=== PATIENT | female | born 1935 | race Caucasian/White ===

== ENCOUNTER 2018-01-26 09:15 | Outpatient (RCR) | payer MEDICARE, MEDICAID, SELFPAY ==
[2018-01-05 10:18] VITALS: BP 167/85; PULSE 74; RESP 18; TEMP 35.5; BMI 42.0
--- NOTE | 2018-01-05 14:02 | PCM.WC.HP ---
(1) Bilateral edema of lower extremity Status: Acute Current Visit: No Code(s): R60.0 - Localized edema (2) Difficulty walking down slope Status: Acute Current Visit: No Code(s): R26.2 - Difficulty in walking, not elsewhere classified (3) Morbid obesity with BMI of 50.0-59.9, adult Status: Chronic Current Visit: No Code(s): E66.01 - Morbid (severe) obesity due to excess calories; Z68.43 - Body mass index (BMI) 50-59.9 , adult (4) Pain in both lower legs Status: Chronic Current Visit: No Code(s): M79.661 - Pain in right lower leg; M79.662 - Pain in left lower leg (5) Peripheral vascular occlusive disease Status: Chronic Current Visit: No Code(s): I73.9 - Peripheral vascular disease, unspecified (6) Ulcer of left lower leg Status: Acute Current Visit: Yes Code(s): L97.929 - Non-pressure chronic ulcer of unspecified part of left lower leg with unspecified severity History of Present Illness Date of Service: 01/05/18 Chief Complaint: Follow-up on nonhealing ulcers of the left lower leg with seepage History of Wound: 82-year-old white female is been here before for the same has extreme peripheral vascular occlusive disease and bilateral lower leg. Patient has been compliant and has been wearing her compression stockings but approximately mid-October with a small breakdown of skin. The daughter who is her customer service manager states that it just started pouring out of her pores and she literally was dripping all over the floor of the yellow and clear drainage. She has developed a lot of cellulitis since then. Patient has tried to go to her regular doctor but they just increased her Lasix. Past Medical History Past Medical History: Chronic Problems Peripheral vascular occlusive disease (Chronic) Pain in both lower legs (Chronic) Morbid obesity with BMI of 50.0-59.9, adult (Chronic) Pacemaker (Chronic) Surgical History: pacemaker implantation, - Allergies/Adverse Reactions: Allergies ceftriaxone [From Rocephin] Allergy (Verified 01/05/18 10:59) Unknown levofloxacin [From Levaquin] Allergy (Verified 01/05/18 10:59) Unknown rosuvastatin calcium [From Crestor] Adverse Reaction (Verified 01/05/18 10:59) Other muscle aches Home Medications: Ambulatory Orders Medication Instructions Recorded Beta-Glucan, (1-3) (1-4) [Beta 10 mg MC DAILY 03/17/14 Glucan] Catalex F 2 tab PO DAILY 03/17/14 Cataplex B 3 tab PO DAILY 03/17/14 Cod Liver Oil 500 ml PO DAILY 03/17/14 Furosemide 40 mg PO DAILY 03/17/14 Levothyroxine [Synthroid] 75 mcg PO DAILY 03/17/14 Rivaroxaban [Xarelto] 20 mg PO DAILY 03/17/14 Calcium Lactate 252 mg PO BID 08/26/16 Magnesium Oxide [Magnesium] 400 mg PO DAILY 08/26/16 Potassium Chloride [K-Dur] 20 meq PO DAILY 08/26/16 Ubidecarenone [Coq10] 100 mg PO DAILY 08/26/16 Vitamin E 1,000 unit PO DAILY 08/26/16 Metoprolol Succinate [Toprol Xl] mg PO DAILY 01/05/18 Quinapril HCl [Accupril] 20 mg PO DAILY 01/05/18 - Family History Maternal Heart Disease Paternal Heart Disease, Stroke Sibling Heart Disease, - - Kidney disease Smoking Status: Never smoker Review of Systems Constitutional: Denies: Chills, Fever Eyes: Denies: Blurred vision, Drainage, Pain HEENT: Denies: Difficulty Hearing, Difficulty Swallowing, Sore Throat, Visual Changes Cardiovascular: Denies: Chest Pain, Palpitations, Syncope Respiratory: Denies: Cough, Shortness of Breath Gastrointestinal: Denies: Abdominal Pain, Nausea, Vomiting Genitourinary: Denies: Dysuria, Frequency Musculoskeletal: Denies: Joint Pain, Muscle pain Skin: Denies: Jaundice, Rash Neurological: Denies: Balance problems, Change in Speech, Difficulty swallowing, Focal weakness Psychiatric: Denies: Anxiety, Depression Endocrine: Denies: Change in Body Habitus Hematologic/ Lymphatic: Denies: Adenopathy - Physical Exam Vital Signs Temp Pulse Resp BP 96 F L 74 18 167/85 H 01/05/18 10:18 01/05/18 10:18 01/05/18 10:18 01/05/18 10:18 General: Oriented x3, Cooperative, Well developed HEENT: Atraumatic, PERRLA Oral: Moist Mucosa Neck: Supple, No JVD Lungs: Clear to auscultation, Normal air movement Cardiovascular: Regular rate, Regular Rhythm Abdomen: Bowel Sounds Present, Soft, Non Tender, No Hepato-splenomegaly Extremities: No clubbing, Edema, - - Cellulitis and open ulcers superficial on left lower leg Skin: Ulcer/ Wound Wound Measurements and Assessment WC - Nurse 1 - General Ulcer Measurement Start: 01/05/18 10:16 Freq: Status: Active Protocol: Activity Type Activity Date Activity User E-Sign Co-Sign Detail Recorded Client Recorded Date Recorded By Document 01/05/18 10:18 [facility] [id number] 01/05/18 10:53 [facility] 01/05/18 10:18 Wound Center Nurse 1 [Ulcer Assessment] #11 L LAT LEG -Combined with other wound No -Current Size (cm) - Length 10.8 -Current Size (cm) - Width 10.5 -Current Size (cm) - Depth 0.1 -Total Square Cm 113.40 -Date of Last Picture (Recall this 01/05/18 field) -Photo Taken Yes -Epithelialization None Present -Tunneling No -Undermining/Tunneling No -Circular Undermining No -Classification - Thickness Full Thickness without Exposed Support Structure -Exudate Amt Large (67-100%) -Exudate Type Serous -Wound Margin Indistinct, Non -Visible -Granulation Amt None Present (0 %) -Slough/Fibrin Yes -Necrotic Tissue Type Adherent Slough -Structure Exposed None/Limited to Skin Breakdown -Texture (Alexandra-wound Skin Appearance) Assessed Localized Edema -Moisture (Alexandra-wound Skin Appearance Assessed ) Maceration -Color (Alexandra-wound Skin Appearance) Assessed Erythema Hemosiderin Staining -Temperature (Alexandra-wound Skin No Abnormality Appearance) (Pt Warm) -Tenderness on Palpation (Alexandra-wound No Skin Appearance) -Ulcer Cleansing Rinsed/ Irrigated with Saline -Foul Odor after Cleansing No -Anesthetic Used 4% Lidocaine Solution #10 L AZUL PROXIMAL -Combined with other wound No -Current Size (cm) - Length 3.4 -Current Size (cm) - Width 2.2 -Current Size (cm) - Depth 0.1 -Total Square Cm 7.48 -Date of Last Picture (Recall this 01/05/18 field) -Photo Taken Yes -Epithelialization None Present -Tunneling No -Undermining/Tunneling No -Circular Undermining No -Classification - Thickness Full Thickness without Exposed Support Structure -Exudate Amt Large (67-100%) -Exudate Type Serous -Wound Margin Indistinct, Non -Visible -Granulation Amt None Present (0 %) -Slough/Fibrin Yes -Necrosis Amt Large (67-100%) -Necrotic Tissue Type Adherent Slough -Structure Exposed None/Limited to Skin Breakdown -Texture (Alexandra-wound Skin Appearance) Assessed Localized Edema -Moisture (Alexandra-wound Skin Appearance Assessed ) Maceration -Color (Alexandra-wound Skin Appearance) Assessed Erythema Hemosiderin Staining -Temperature (Alexandra-wound Skin No Abnormality Appearance) (Pt Warm) -Tenderness on Palpation (Alexandra-wound No Skin Appearance) -Ulcer Cleansing Rinsed/ Irrigated with Saline -Foul Odor after Cleansing No -Anesthetic Used 4% Lidocaine Solution #9 R LAT KNEE -Combined with other wound No -Current Size (cm) - Length 0.7 -Current Size (cm) - Width 0.6 -Current Size (cm) - Depth 0.1 -Total Square Cm 0.42 -Date of Last Picture (Recall this 01/05/18 field) -Photo Taken Yes -Epithelialization None Present -Tunneling No -Undermining/Tunneling No -Circular Undermining No -Classification - Thickness Full Thickness without Exposed Support Structure -Exudate Amt Large (67-100%) -Exudate Type Serous -Wound Margin Indistinct, Non -Visible -Granulation Amt Small (1-33%) -Granulation Quality [place] -Slough/Fibrin Yes -Necrosis Amt Large (67-100%) -Necrotic Tissue Type Adherent Slough -Structure Exposed None/Limited to Skin Breakdown -Texture (Alexandra-wound Skin Appearance) Assessed Localized Edema -Moisture (Alexandra-wound Skin Appearance Assessed ) Maceration -Color (Alexandra-wound Skin Appearance) Assessed Erythema Hemosiderin Staining -Temperature (Alexandra-wound Skin No Abnormality Appearance) (Pt Warm) -Tenderness on Palpation (Alexandra-wound No Skin Appearance) -Ulcer Cleansing Rinsed/ Irrigated with Saline -Foul Odor after Cleansing No -Anesthetic Used 4% Lidocaine Solution #8 R LAT LE -Combined with other wound No -Current Size (cm) - Length 7.2 -Current Size (cm) - Width 5.5 -Current Size (cm) - Depth 0.1 -Total Square Cm 39.60 -Date of Last Picture (Recall this 01/05/18 field) -Photo Taken Yes -Epithelialization None Present -Tunneling No -Undermining/Tunneling No -Circular Undermining No -Classification - Thickness Full Thickness without Exposed Support Structure -Exudate Amt Large (67-100%) -Exudate Type Serous -Wound Margin Indistinct, Non -Visible -Granulation Amt Small (1-33%) -Granulation Quality Pale -Slough/Fibrin Yes -Necrosis Amt Large (67-100%) -Necrotic Tissue Type Adherent Slough -Structure Exposed None/Limited to Skin Breakdown -Texture (Alexandra-wound Skin Appearance) Assessed Localized Edema -Moisture (Alexandra-wound Skin Appearance Assessed ) Maceration Weeping -Color (Alexandra-wound Skin Appearance) Assessed Erythema Hemosiderin Staining -Temperature (Alexandra-wound Skin No Abnormality Appearance) (Pt Warm) -Tenderness on Palpation (Alexandra-wound No Skin Appearance) -Ulcer Cleansing Rinsed/ Irrigated with Saline -Foul Odor after Cleansing No -Anesthetic Used 4% Lidocaine Solution #7 R SEC TOE -Combined with other wound No -Current Size (cm) - Length 1.1 -Current Size (cm) - Width 1.5 -Current Size (cm) - Depth 0.1 -Total Square Cm 1.65 -Date of Last Picture (Recall this 01/05/18 field) -Photo Taken Yes -Epithelialization None Present -Tunneling No -Undermining/Tunneling No -Circular Undermining No -Classification - Thickness Full Thickness without Exposed Support Structure -Change in Wound Grade/Stage No Query Text:If change please identify the Stage/Grade in the comment (ie. S2 G3) -Exudate Amt Large (67-100%) -Exudate Type Serous -Wound Margin Indistinct, Non -Visible -Granulation Amt Medium (34-66%) -Granulation Quality Red -Slough/Fibrin Yes -Necrosis Amt Large (67-100%) -Necrotic Tissue Type Adherent Slough -Structure Exposed None/Limited to Skin Breakdown -Texture (Alexandra-wound Skin Appearance) Assessed Localized Edema -Moisture (Alexandra-wound Skin Appearance Assessed ) Maceration Weeping -Color (Alexandra-wound Skin Appearance) Assessed Erythema Hemosiderin Staining -Temperature (Alexandra-wound Skin Cool/Cold Appearance) -Tenderness on Palpation (Alexandra-wound No Skin Appearance) -Ulcer Cleansing Rinsed/ Irrigated with Saline -Foul Odor after Cleansing No -Anesthetic Used 4% Lidocaine Solution #6 R GRT TOE -Combined with other wound No -Current Size (cm) - Length 1.1 -Current Size (cm) - Width 1.3 -Current Size (cm) - Depth 0.1 -Total Square Cm 1.43 -Date of Last Picture (Recall this 01/05/18 field) -Photo Taken Yes -Epithelialization None Present -Tunneling No -Undermining/Tunneling No -Circular Undermining No -Classification - Thickness Full Thickness without Exposed Support Structure -Change in Wound Grade/Stage No Query Text:If change please identify the Stage/Grade in the comment (ie. S2 G3) -Exudate Amt Large (67-100%) -Exudate Type Serous -Wound Margin Indistinct, Non -Visible -Granulation Amt Medium (34-66%) -Granulation Quality Red -Slough/Fibrin Yes -Necrosis Amt Large (67-100%) -Necrotic Tissue Type Adherent Slough -Structure Exposed None/Limited to Skin Breakdown -Texture (Alexandra-wound Skin Appearance) Assessed Localized Edema -Moisture (Alexandra-wound Skin Appearance Assessed ) Maceration Weeping -Color (Alexandra-wound Skin Appearance) Assessed Erythema Hemosiderin Staining -Temperature (Alexandra-wound Skin Cool/Cold Appearance) -Tenderness on Palpation (Alexandra-wound Yes Skin Appearance) -Ulcer Cleansing Rinsed/ Irrigated with Saline -Foul Odor after Cleansing No -Anesthetic Used 4% Lidocaine Solution [Edema Assessment] -Lower Limb Edema Present Yes -Right Calf (cm) 50.1 -Right Ankle (cm) 28.4 -Left Calf (cm) 45.5 -Left Ankle (cm) 27.1 Musculoskeletal: No Tenderness to Palpation of Joints or Extremities Lymphatic: No Cervical, Supraclavicular, or Inguinal Adenopathy Neurological: Cranial nerves II-XII grossly intact, Neuro grossly intact Psych/Mental Status: Normal Affect, Appropriate Debridement Note Wound debrided: Left lower leg azul Type of Debridement: Excisional debridement Depth: Down to and including healthy tissue Instrument Used: 7mm curette Tissue Removed: Fibrin and some devitalized tissue Severity: Limited To Skin Breakdown Amount of bleeding with debridement: None Bleeding Controlled with: Compression and gauze - Additional Wound Wound debrided: Left lower leg lateral ulcers Type of Debridement: Excisional debridement Anesthesia Used: 5% Lidocaine Gel Depth: Down to and including healthy tissue Percentage of wound debrided: 100 Instrument Used: 7mm curette Tissue Removed: Devitalized tissue Severity: Limited To Skin Breakdown Amount of bleeding with debridement: Mild Bleeding Controlled with: Compression and gauze Patient tolerated procedure: Patient tolerated procedure well Assessment/Plan Active Problems Ulcer of left lower leg (Acute) Assessment: Cellulitis bilateral lower legs. Edema bilateral lower legs. Left lower leg ulcers and and lateral. Morbid obesity. Pacemaker. Renal insufficiency Plan: Wash the legs with Hibiclens. Apply Xeroform dressings to open areas. Cover with ABDs and Luisa. Continue to compress with Hernandez wraps. Follow-up one week
--- NOTE | 2018-01-12 09:42 | VDLE_ITS ---
Reason For Study: Edema RIGHT LEFT FV is compressible, spontaneous, phasic, FV is compressible, spontaneous, phasic, competent and demonstrates normal competent and demonstrates normal augmentation. augmentation. POP V is compressible, spontaneous, phasic, T/P Trunk is compressible. competent and demonstrates normal PTV is compressible. augmentation. LT PerV is compressible. T/P Trunk is compressible. Lt PopV is partially compressible with PTV is compressible. bright intraluminal echoes consistent with RT PerV is compressible. chronic DVT Rt SFJ not seen Lt SFJ not seen Rt GSV is Incompetent with reflux greater than 0.5 sec and a diameter of 0.62cm x Lt GSV is Incompetent with reflux greater 0.61cm in the thigh and 0.57cm x 0.62cm in than 0.5 sec with a diameter of 0.34cm x the calf 0.36cm in the thigh and 0.38cm x 0.43cm in the calf Rt SSV is Competent Lt SSV is Competent Incompetent Rt calf perf noted 12cm from medial malleolus. Lt PTV mislabeled as PopV. Procedure Exam performed in department. The study was technically limited. The study was technically difficult. Pt unable to lay flat, pt scanned upright; unable to visualize CFV, SFJ, and FV prox due to suboptimal pt positioning. A preliminary report was called and/or faxed to Wound Center. Interpretation Summary Deep veins of the right lower extremity are patent and compressible, though the right common femoral vein and the proximal right femoral vein were not visualized. The left common femoral vein and proximal left femoral vein were not visualized. Chronic venous changes were noted in the left popliteal vein, which is partially compressible and demonstrates bright intraluminal echogenicity. The remainder of the left lower extremity deep venous system is patent and compressible. Sapheno- femoral junctions were not visualized on either side. The greater saphenous veins appear bilaterally patent and compressible segmentally. Segmental valvular incompetence is noted within the greater saphenous veins bilaterally. Small saphenous veins are patent and competent bilaterally. 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 Ordering Physician: LEIGH LOPEZ Referring Physician: Leigh Lopez Performed By: Jo Wolfe RDCS, RVT
[2018-01-12 11:01] VITALS: BP 150/92; PULSE 87; RESP 22; TEMP 36.8; BMI 42.0
--- NOTE | 2018-01-12 12:55 | PN.PCM_ITS ---
(1) Bilateral edema of lower extremity Status: Acute Current Visit: No Code(s): R60.0 - Localized edema (2) Difficulty walking down slope Status: Acute Current Visit: No Code(s): R26.2 - Difficulty in walking, not elsewhere classified (3) Morbid obesity with BMI of 50.0-59.9, adult Status: Chronic Current Visit: No Code(s): E66.01 - Morbid (severe) obesity due to excess calories; Z68.43 - Body mass index (BMI) 50-59.9 , adult (4) Pain in both lower legs Status: Chronic Current Visit: No Code(s): M79.661 - Pain in right lower leg ; M79.662 - Pain in left lower leg (5) Peripheral vascular occlusive disease Status: Chronic Current Visit: No Code(s): I73.9 - Peripheral vascular disease, unspecified (6) Ulcer of left lower leg Status: Acute Current Visit: Yes Code(s): L97.929 - Non-pressure chronic ulcer of unspecified part of left lower leg with unspecified severity (7) Multiple superficial wounds with infection Status: Acute Current Visit: Yes Code(s): T07.XXXA - Unspecified multiple injuries, initial encounter; L08.9 - Local infection of the skin and subcutaneous tissue, unspecified (8) Staphylococcus aureus infection Status: Acute Current Visit: Yes Code(s): A49.01 - Methicillin susceptible Staphylococcus aureus infection, unspecified site (9) Peripheral vascular occlusive disease Status: Acute Current Visit: Yes Code(s): I73.9 - Peripheral vascular disease, unspecified Type of Wound Date of Service: 01/12/18 Chief Complaint: Follow-up on nonhealing ulcers of the left lower leg with seepage History of Wound: 82-year-old white female is been here before for the same has extreme peripheral vascular occlusive disease and bilateral lower leg. Patient has been compliant and has been wearing her compression stockings but approximately mid-October with a small breakdown of skin. The daughter who is her kindergartners helper states that it just started pouring out of her pores and she literally was dripping all over the floor of the yellow and clear drainage. She has developed a lot of cellulitis since then. Patient has tried to go to her regular doctor but they just increased her Lasix. Progress of Wound: Today the superficial blistering openings of the bilateral lower legs are much improved about half the size they were last week. Patient is being currently treated for a staph infection lower extremity and taking the antibiotic well. Continue with Xeroform dressings for healing. 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 Patient is already on Xarelto - Physical Exam Vital Signs Temp Pulse Resp BP 98.2 F 87 22 H 150/92 H 01/12/18 11:01 01/12/18 11:01 01/12/18 11:01 01/12/18 11:01 General: Oriented x3, Cooperative, Well developed HEENT: Atraumatic, PERRLA Oral: Moist Mucosa Neck: Supple, No JVD Lungs: Clear to auscultation, Normal air movement Cardiovascular: Regular rate, Regular Rhythm Abdomen: Bowel Sounds Present, Soft, Non Tender, No Hepato-splenomegaly Extremities: No clubbing, Edema Skin: Ulcer/ Wound - Clusters both legs superficial Wound Measurements and Assessment WC - Nurse 1 - General Ulcer Measurement Start: 01/05/18 10:16 Freq: Status: Active Protocol: Activity Type Activity Date Activity User E-Sign Co-Sign Detail Recorded Client Recorded Date Recorded By Document 01/12/18 11:01 [id number] 01/12/18 11:17 DL 01/12/18 11:01 Wound Center Nurse 1 [Ulcer Assessment] #11 L LAT LEG -Current Size (cm) - Length 6 -Current Size (cm) - Width 6 -Current Size (cm) - Depth 0.1 -Total Square Cm 36 -Photo Taken No -Exudate Amt Small (1-33%) -Exudate Type Serosanguineous -Wound Margin Indistinct, Non -Visible -Granulation Amt Large (67-100%) -Granulation Quality Red -Necrosis Amt None Present (0 %) -Necrotic Tissue Type Necrosis of Muscle -Structure Exposed N/A -Texture (Alexandra-wound Skin Appearance) Induration Localized Edema -Moisture (Alexandra-wound Skin Appearance No Abnormality ) -Color (Alexandra-wound Skin Appearance) Erythema Hemosiderin Staining -Temperature (Alexandra-wound Skin No Abnormality Appearance) (Pt Warm) -Tenderness on Palpation (Alexandra-wound No Skin Appearance) -Ulcer Cleansing Wound Cleanser -Foul Odor after Cleansing No -Anesthetic Used 4% Lidocaine Solution #10 L AZUL PROXIMAL -Current Size (cm) - Length 2.7 -Current Size (cm) - Width 1 -Current Size (cm) - Depth 0.1 -Total Square Cm 2.7 -Photo Taken No -Exudate Amt Small (1-33%) -Exudate Type Serosanguineous -Wound Margin Flat & Intact -Granulation Amt Large (67-100%) -Granulation Quality [place] Red -Necrosis Amt None Present (0 %) -Structure Exposed N/A -Texture (Alexandra-wound Skin Appearance) Induration Localized Edema Scarring -Color (Alexandra-wound Skin Appearance) Erythema Hemosiderin Staining Rubor -Temperature (Alexandra-wound Skin No Abnormality Appearance) (Pt Warm) -Tenderness on Palpation (Aleaxndra-wound No Skin Appearance) -Ulcer Cleansing Wound Cleanser -Foul Odor after Cleansing No -Anesthetic Used 4% Lidocaine Solution #9 R LAT KNEE -Current Size (cm) - Length 0.7 -Current Size (cm) - Width 0.6 -Current Size (cm) - Depth 0.1 -Total Square Cm 0.42 -Photo Taken No -Exudate Amt None Present (0 %) -Wound Margin Distinct, Outline Attached -Granulation Amt None Present (0 %) -Necrosis Amt Large (67-100%) -Necrotic Tissue Type Adherent Slough -Structure Exposed N/A -Texture (Alexandra-wound Skin Appearance) Callus Induration Localized Edema -Color (Alexandra-wound Skin Appearance) Erythema Hemosiderin Staining Rubor -Temperature (Alexandra-wound Skin No Abnormality Appearance) (Pt Warm) -Ulcer Cleansing Wound Cleanser -Foul Odor after Cleansing No -Anesthetic Used 4% Lidocaine Solution #8 R LAT LE -Current Size (cm) - Length 4 -Current Size (cm) - Width 5 -Current Size (cm) - Depth 0.1 -Total Square Cm 20 -Photo Taken No -Exudate Amt Small (1-33%) -Exudate Type Serosanguineous -Wound Margin Indistinct, Non -Visible -Granulation Amt Large (67-100%) -Granulation Quality Red -Necrosis Amt Small (1-33%) -Necrotic Tissue Type Adherent Slough -Structure Exposed N/A -Texture (Alexandra-wound Skin Appearance) Induration Localized Edema -Moisture (Alexandra-wound Skin Appearance No Abnormality ) -Color (Alexandra-wound Skin Appearance) Erythema Hemosiderin Staining -Tenderness on Palpation (Alexandra-wound No Skin Appearance) -Ulcer Cleansing Wound Cleanser -Foul Odor after Cleansing No -Anesthetic Used 4% Lidocaine Solution #7 R SEC TOE -Current Size (cm) - Length 1.1 -Current Size (cm) - Width 1.6 -Current Size (cm) - Depth 0.1 -Total Square Cm 1.76 -Photo Taken No -Exudate Amt Small (1-33%) -Exudate Type Serosanguineous -Wound Margin Distinct, Outline Attached -Granulation Amt Small (1-33%) -Granulation Quality [place] -Necrosis Amt Large (67-100%) -Necrotic Tissue Type Adherent Slough -Structure Exposed N/A -Texture (Alexandra-wound Skin Appearance) Localized Edema -Moisture (Alexandra-wound Skin Appearance Maceration ) -Color (Alexandra-wound Skin Appearance) Erythema Hemosiderin Staining -Temperature (Alexandra-wound Skin No Abnormality Appearance) (Pt Warm) -Tenderness on Palpation (Alexandra-wound No Skin Appearance) -Ulcer Cleansing Wound Cleanser -Foul Odor after Cleansing No -Anesthetic Used 4% Lidocaine Solution #6 R GRT TOE -Current Size (cm) - Length 1 -Current Size (cm) - Width 1 -Current Size (cm) - Depth 0.1 -Total Square Cm 1 -Photo Taken No -Exudate Amt Small (1-33%) -Exudate Type Serosanguineous -Wound Margin Distinct, Outline Attached -Granulation Amt Large (67-100%) -Granulation Quality Red -Necrosis Amt Small (1-33%) -Necrotic Tissue Type Adherent Slough -Structure Exposed N/A -Texture (Alexandra-wound Skin Appearance) Localized Edema -Moisture (Alexandra-wound Skin Appearance Maceration ) -Color (Alexandra-wound Skin Appearance) Erythema Hemosiderin Staining -Temperature (Alexandra-wound Skin No Abnormality Appearance) (Pt Warm) -Tenderness on Palpation (Alexandra-wound No Skin Appearance) -Ulcer Cleansing Wound Cleanser -Foul Odor after Cleansing No -Anesthetic Used 4% Lidocaine Solution [Edema Assessment] -Right Calf (cm) 46.5 -Right Ankle (cm) 27 -Right Foot (cm) 43 -Left Calf (cm) 25.8 WC - Nurse 2 - General Ulcer CM Notes Start: 01/05/18 10:16 Freq: Status: Active Protocol: Activity Type Activity Date Activity User E-Sign Co-Sign Detail Recorded Client Recorded Date Recorded By Document 01/12/18 11:56 VALERIE [id number] 01/12/18 12:05 VALERIE 01/12/18 11:56 Wound Center Nurse 2 [Procedure/Treatment] #12 LEFT MEDIAL LE -Time 11:58 -Correct Patient Yes -Correct Side, Site, Position Yes -Correct Procedure Yes -Post Debridement Size (cm) - Length 1.0 -Post Debridement Size (cm) - Width 1.0 -Post Debridement Size (cm) - Depth 0.1 -Total Square Cm 1.00 -Wound/Ulcer Outcome Not Healed -Ulcer Cleansing Rinsed/ Irrigated with Saline -Foul Odor after Cleansing No -Bioengineered Tissue No -Injectable Lidocaine (%) 4 -Injectable Lidocaine w/ Epi (%) 5 -Bleeding Controlled with NA -Treatment Response Procedure Tolerated Well #11 L LAT LEG -Time 11:59 -Correct Patient Yes -Correct Side, Site, Position Yes -Correct Procedure Yes -Procedure Performed Yes -Type of Procedure Debridement -Clinical Debridement Subcutaneous -Post Debridement Size (cm) - Length 11 -Post Debridement Size (cm) - Width 9.5 -Post Debridement Size (cm) - Depth 0.1 -Total Square Cm 104.5 -Wound/Ulcer Outcome Not Healed -Ulcer Cleansing Rinsed/ Irrigated with Saline -Foul Odor after Cleansing No -Bioengineered Tissue No -Topical Lidocaine (%) 4 -Lidocaine (ml) 5 -Bleeding Controlled with NA #10 L AZUL PROXIMAL -Time 11:59 -Correct Patient Yes -Correct Side, Site, Position Yes -Correct Procedure Yes -Procedure Performed Yes -Type of Procedure Debridement -Clinical Debridement Subcutaneous -Post Debridement Size (cm) - Length 3.0 -Post Debridement Size (cm) - Width 1.5 -Post Debridement Size (cm) - Depth 0.1 -Total Square Cm 4.50 -Wound/Ulcer Outcome Not Healed -Ulcer Cleansing Rinsed/ Irrigated with Saline -Foul Odor after Cleansing No -Bioengineered Tissue No -Topical Lidocaine (%) 4 -Lidocaine (ml) 5 -Bleeding Controlled with NA -Treatment Response Procedure Tolerated Well #9 R LAT KNEE -Time 12:04 -Correct Patient Yes -Correct Side, Site, Position Yes -Correct Procedure Yes -Procedure Performed No -Post Debridement Size (cm) - Length 0 -Post Debridement Size (cm) - Width 0 -Post Debridement Size (cm) - Depth 0 -Total Square Cm 0 -Wound/Ulcer Outcome Not Healed -Ulcer Cleansing Rinsed/ Irrigated with Saline -Topical Lidocaine (%) 4 -Lidocaine (ml) 5 -Bleeding Controlled with NA -Treatment Response Procedure Tolerated Well #8 R LAT LE -Time 12:01 -Correct Patient Yes -Correct Side, Site, Position Yes -Correct Procedure Yes -Procedure Performed Yes -Type of Procedure Debridement -Clinical Debridement Subcutaneous -Post Debridement Size (cm) - Length 5.0 -Post Debridement Size (cm) - Width 4.5 -Post Debridement Size (cm) - Depth 0.1 -Total Square Cm 22.50 -Wound/Ulcer Outcome Not Healed -Ulcer Cleansing Rinsed/ Irrigated with Saline -Foul Odor after Cleansing No -Bioengineered Tissue No -Topical Lidocaine (%) 4 -Lidocaine (ml) 5 -Bleeding Controlled with NA -Treatment Response Procedure Tolerated Well #7 R SEC TOE -Time 12:02 -Correct Patient Yes -Correct Side, Site, Position Yes -Correct Procedure Yes -Procedure Performed Yes -Type of Procedure Debridement -Clinical Debridement Subcutaneous -Post Debridement Size (cm) - Length 1.3 -Post Debridement Size (cm) - Width 1.3 -Post Debridement Size (cm) - Depth 0.1 -Total Square Cm 1.69 -Wound/Ulcer Outcome Not Healed -Ulcer Cleansing Rinsed/ Irrigated with Saline -Foul Odor after Cleansing No -Bioengineered Tissue No -Topical Lidocaine (%) 4 -Lidocaine (ml) 5 -Bleeding Controlled with NA -Treatment Response Procedure Tolerated Well #6 R GRT TOE -Time 12:02 -Correct Patient Yes -Correct Side, Site, Position Yes -Correct Procedure Yes -Procedure Performed Yes -Type of Procedure Debridement -Clinical Debridement Subcutaneous -Post Debridement Size (cm) - Length 1.0 -Post Debridement Size (cm) - Width 1.0 -Post Debridement Size (cm) - Depth 0.1 -Total Square Cm 1.00 -Wound/Ulcer Outcome Not Healed -Ulcer Cleansing Rinsed/ Irrigated with Saline -Foul Odor after Cleansing No -Bioengineered Tissue No -Topical Lidocaine (%) 4 -Lidocaine (ml) 5 -Bleeding Controlled with NA -Treatment Response Procedure Tolerated Well [See Physician Procedure note for Specifics] Pain Scale: 0-10 Numeric [Pain] -Is Patient Pain Free? Yes Musculoskeletal: No Tenderness to Palpation of Joints or Extremities Lymphatic: No Cervical, Supraclavicular, or Inguinal Adenopathy Neurological: Cranial nerves II-XII grossly intact, Neuro grossly intact Psych/Mental Status: Normal Affect, Appropriate Debridement Note Post-Debridement Measurements/Treatment WC - Nurse 2 - General Ulcer CM Notes Start: 01/05/18 10:16 Freq: Status: Active Protocol: Activity Type Activity Date Activity User E-Sign Co-Sign Detail Recorded Client Recorded Date Recorded By Document 01/05/18 19:50 [id number] 01/05/18 19:53 Document 01/12/18 11:56 [id number] 01/12/18 12:05 JS 01/05/18 01/12/18 19:50 11:56 Wound Center Nurse 2 #12 LEFT MEDIAL LE -Time 11:58 -Correct Patient Yes -Correct Side, Site, Position Yes -Correct Procedure Yes -Post Debridement Size (cm) - Length 1.0 -Post Debridement Size (cm) - Width 1.0 -Post Debridement Size (cm) - Depth 0.1 -Total Square Cm 1.00 -Wound/Ulcer Outcome Not Healed -Ulcer Cleansing Rinsed/ Irrigated with Saline -Foul Odor after Cleansing No -Bioengineered Tissue No -Injectable Lidocaine (%) 4 -Injectable Lidocaine w/ Epi (%) 5 -Bleeding Controlled with NA -Treatment Response Procedure Tolerated Well #11 L LAT LEG -Time 10:30 11:59 -Correct Patient Yes Yes -Correct Side, Site, Position Yes Yes -Correct Procedure Yes Yes -Procedure Performed Yes Yes -Type of Procedure Debridement Debridement -Clinical Debridement Subcutaneous Subcutaneous -Post Debridement Size (cm) - Length 11.0 11 -Post Debridement Size (cm) - Width 10.0 9.5 -Post Debridement Size (cm) - Depth 0.1 0.1 -Total Square Cm 110.00 104.5 -Wound/Ulcer Outcome Not Healed Not Healed -Ulcer Cleansing Rinsed/ Rinsed/ Irrigated with Irrigated with Saline Saline -Foul Odor after Cleansing No No -Bioengineered Tissue No No -Topical Lidocaine (%) 4 -Lidocaine (ml) 5 -Bleeding Controlled with NA NA -Treatment Response Procedure Tolerated Well #10 L AZUL PROXIMAL -Time 10:30 11:59 -Correct Patient Yes Yes -Correct Side, Site, Position Yes Yes -Correct Procedure Yes Yes -Procedure Performed Yes Yes -Type of Procedure Debridement Debridement -Clinical Debridement Subcutaneous Subcutaneous -Post Debridement Size (cm) - Length 3.0 3.0 -Post Debridement Size (cm) - Width 2.0 1.5 -Post Debridement Size (cm) - Depth 0.1 0.1 -Total Square Cm 6.00 4.50 -Wound/Ulcer Outcome Not Healed Not Healed -Ulcer Cleansing Rinsed/ Rinsed/ Irrigated with Irrigated with Saline Saline -Foul Odor after Cleansing No No -Bioengineered Tissue No No -Topical Lidocaine (%) 4 -Lidocaine (ml) 5 -Bleeding Controlled with NA NA -Treatment Response Procedure Procedure Tolerated Well Tolerated Well #9 R LAT KNEE -Time 10:30 12:04 -Correct Patient Yes Yes -Correct Side, Site, Position Yes Yes -Correct Procedure Yes Yes -Procedure Performed Yes No -Type of Procedure Debridement -Clinical Debridement Subcutaneous -Post Debridement Size (cm) - Length 8.5 0 -Post Debridement Size (cm) - Width 6.0 0 -Post Debridement Size (cm) - Depth 0.1 0 -Total Square Cm 51.00 0 -Wound/Ulcer Outcome Not Healed Not Healed -Ulcer Cleansing Rinsed/ Rinsed/ Irrigated with Irrigated with Saline Saline -Foul Odor after Cleansing No -Bioengineered Tissue No -Topical Lidocaine (%) 4 -Lidocaine (ml) 5 -Bleeding Controlled with NA NA -Treatment Response Procedure Procedure Tolerated Well Tolerated Well #8 R LAT LE -Time 12:01 -Correct Patient Yes -Correct Side, Site, Position Yes -Correct Procedure Yes -Procedure Performed Yes -Type of Procedure Debridement -Clinical Debridement Subcutaneous -Post Debridement Size (cm) - Length 5.0 -Post Debridement Size (cm) - Width 4.5 -Post Debridement Size (cm) - Depth 0.1 -Total Square Cm 22.50 -Wound/Ulcer Outcome Not Healed -Ulcer Cleansing Rinsed/ Irrigated with Saline -Foul Odor after Cleansing No -Bioengineered Tissue No -Topical Lidocaine (%) 4 -Lidocaine (ml) 5 -Bleeding Controlled with NA -Treatment Response Procedure Tolerated Well #7 R SEC TOE -Time 10:30 12:02 -Correct Patient Yes Yes -Correct Side, Site, Position Yes Yes -Correct Procedure Yes Yes -Procedure Performed Yes Yes -Type of Procedure Debridement Debridement -Clinical Debridement Subcutaneous Subcutaneous -Post Debridement Size (cm) - Length 1.0 1.3 -Post Debridement Size (cm) - Width 1.4 1.3 -Post Debridement Size (cm) - Depth 0.1 0.1 -Total Square Cm 1.40 1.69 -Wound/Ulcer Outcome Not Healed Not Healed -Ulcer Cleansing Rinsed/ Rinsed/ Irrigated with Irrigated with Saline Saline -Foul Odor after Cleansing No No -Bioengineered Tissue No No -Topical Lidocaine (%) 4 -Lidocaine (ml) 5 -Bleeding Controlled with NA -Treatment Response Procedure Tolerated Well #6 R GRT TOE -Time 10:30 12:02 -Correct Patient Yes Yes -Correct Side, Site, Position Yes Yes -Correct Procedure Yes Yes -Procedure Performed Yes Yes -Type of Procedure Debridement Debridement -Clinical Debridement Subcutaneous Subcutaneous -Post Debridement Size (cm) - Length 1.0 1.0 -Post Debridement Size (cm) - Width 1.1 1.0 -Post Debridement Size (cm) - Depth 0.1 0.1 -Total Square Cm 1.10 1.00 -Wound/Ulcer Outcome Not Healed Not Healed -Ulcer Cleansing Rinsed/ Rinsed/ Irrigated with Irrigated with Saline Saline -Foul Odor after Cleansing No No -Bioengineered Tissue No No -Topical Lidocaine (%) 4 -Lidocaine (ml) 5 -Bleeding Controlled with NA NA -Treatment Response Procedure Procedure Tolerated Well Tolerated Well Pain Scale: 0-10 Numeric Is Patient Pain Free? Yes Yes Wound debrided: Left lateral lower leg ulcers Type of Debridement: Selective debridement Anesthesia Used: 5% Lidocaine Gel Depth: Down to and including healthy tissue Percentage of wound debrided: 100 Instrument Used: 7mm curette Tissue Removed: Fibrin Severity: Limited To Skin Breakdown Amount of bleeding with debridement: None Bleeding Controlled with: Compression and gauze Patient tolerated procedure well - Additional Wound Wound debrided: Left azul area Type of Debridement: Selective debridement Anesthesia Used: 5% Lidocaine Gel Depth: Down to and including healthy tissue Percentage of wound debrided: 100 Instrument Used: 7mm curette Tissue Removed: Fibrin Severity: Limited To Skin Breakdown Amount of bleeding with debridement: None Bleeding Controlled with: Compression and gauze Patient tolerated procedure: Patient tolerated procedure well - Additional Wound Wound debrided: Left medial ulcer Type of Debridement: Selective debridement Anesthesia Used: 5% Lidocaine Gel Depth: Down to and including healthy tissue Percentage of wound debrided: 100 Instrument Used: 7mm curette Tissue Removed: Fibrin Severity: Limited To Skin Breakdown Bleeding Controlled with: Compression and gauze Patient tolerated procedure: Patient tolerated procedure well - Additional Wound Wound debrided: Right lateral lower leg ulcers Type of Debridement: Selective debridement Anesthesia Used: 4% Lidocaine Solution Depth: Down to and including healthy tissue Percentage of wound debrided: 100 Instrument Used: 7mm curette Tissue Removed: Fibrin Severity: Limited To Skin Breakdown Bleeding Controlled with: Compression and gauze Patient tolerated procedure: Patient tolerated procedure well - Additional Wound Wound debrided: Right great toe ulcer Type of Debridement: Excisional debridement Anesthesia Used: 5% Lidocaine Gel Depth: Down to and including healthy tissue Percentage of wound debrided: 100 Instrument Used: 5mm curette Tissue Removed: Fibrin Severity: Limited To Skin Breakdown Amount of bleeding with debridement: Mild Bleeding Controlled with: Compression and gauze Patient tolerated procedure: Patient tolerated procedure well - Additional Wound Wound debrided: Right second toe ulcer Type of Debridement: Selective debridement Depth: Down to and including healthy tissue Percentage of wound debrided: 100 Instrument Used: 5mm curette Tissue Removed: Fibrin Severity: Limited To Skin Breakdown Amount of bleeding with debridement: Mild Bleeding Controlled with: Compression and gauze Patient tolerated procedure: Patient tolerated procedure well Assessment/Plan Active Problems Ulcer of left lower leg (Acute) Multiple superficial wounds with infection (Acute) Staphylococcus aureus infection (Acute) Peripheral vascular occlusive disease (Acute) Assessment: Cellulitis bilateral lower legs. Edema bilateral lower legs. Left lower leg ulcers and and lateral. Morbid obesity. Pacemaker. Peripheral vascular occlusive disease. Renal insufficiency Plan: Wash the legs with Hibiclens. Apply Xeroform dressings to open areas. Cover with ABDs and Luisa. Apply gauze between toes. Continue to compress with Hernandez wraps. Follow-up one week
[2018-01-19 08:15] VITALS: BP 165/91; PULSE 78; RESP 16; TEMP 36.2; BMI 42.0
--- NOTE | 2018-01-19 09:33 | PN.PCM_ITS ---
(1) Bilateral edema of lower extremity Status: Acute Current Visit: Yes Code(s): R60.0 - Localized edema (2) Difficulty walking down slope Status: Acute Current Visit: Yes Code(s): R26.2 - Difficulty in walking, not elsewhere classified (3) Morbid obesity with BMI of 50.0-59.9, adult Status: Chronic Current Visit: Yes Code(s): E66.01 - Morbid (severe) obesity due to excess calories; Z68.43 - Body mass index (BMI) 50-59.9 , adult (4) Pain in both lower legs Status: Chronic Current Visit: Yes Code(s): M79.661 - Pain in right lower leg; M79.662 - Pain in left lower leg (5) Peripheral vascular occlusive disease Status: Chronic Current Visit: Yes Code(s): I73.9 - Peripheral vascular disease, unspecified (6) Ulcer of left lower leg Status: Acute Current Visit: Yes Code(s): L97.929 - Non-pressure chronic ulcer of unspecified part of left lower leg with unspecified severity (7) Multiple superficial wounds with infection Status: Acute Current Visit: Yes Code(s): T07.XXXA - Unspecified multiple injuries, initial encounter; L08.9 - Local infection of the skin and subcutaneous tissue, unspecified (8) Staphylococcus aureus infection Status: Acute Current Visit: Yes Code(s): A49.01 - Methicillin susceptible Staphylococcus aureus infection, unspecified site (9) Peripheral vascular occlusive disease Status: Acute Current Visit: Yes Code(s): I73.9 - Peripheral vascular disease, unspecified Type of Wound Date of Service: 01/19/18 Chief Complaint: Follow-up on nonhealing ulcers of the left lower leg with seepage History of Wound: 82-year-old white female is been here before for the same has extreme peripheral vascular occlusive disease and bilateral lower leg. Patient has been compliant and has been wearing her compression stockings but approximately mid-October with a small breakdown of skin. The daughter who is her maintenance supervisor states that it just started pouring out of her pores and she literally was dripping all over the floor of the yellow and clear drainage. She has developed a lot of cellulitis since then. Patient has tried to go to her regular doctor but they just increased her Lasix. Progress of Wound: Today the superficial blistering openings of the bilateral lower legs are much improved about half the size they were last week. Patient is being currently treated for a staph infection lower extremity and taking the antibiotic well. Continue with Xeroform dressings for healing. 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 Patient is already on Xarelto. Patient is to follow-up with Dr. Tripp Josue this next week or 2. Her toes are superficial all of her wounds are superficial and filling in nicely they should be healed by next week. - Physical Exam Vital Signs Temp Pulse Resp BP 97.1 F L 78 16 165/91 H 01/19/18 08:15 01/19/18 08:15 01/19/18 08:15 01/19/18 08:15 General: Oriented x3, Cooperative, Well developed HEENT: Atraumatic, PERRLA Oral: Moist Mucosa Neck: Supple, No JVD Lungs: Clear to auscultation, Normal air movement Cardiovascular: Regular rate, Regular Rhythm Abdomen: Bowel Sounds Present, Soft, Non Tender, No Hepato-splenomegaly Extremities: No clubbing, No edema Wound Measurements and Assessment WC - Nurse 1 - General Ulcer Measurement Start: 01/05/18 10:16 Freq: Status: Active Protocol: Activity Type Activity Date Activity User E-Sign Co-Sign Detail Recorded Client Recorded Date Recorded By Document 01/19/18 08:15 TN [id number] 01/19/18 08:27 TN 01/19/18 08:15 Wound Center Nurse 1 [Ulcer Assessment] #11 L LAT LEG -Combined with other wound No -Current Size (cm) - Length 9.5 -Current Size (cm) - Width 10 -Current Size (cm) - Depth 0.1 -Total Square Cm 95.0 -Photo Taken No -Epithelialization None Present -Tunneling No -Undermining/Tunneling No -Circular Undermining No -Classification - Thickness Full Thickness without Exposed Support Structure -Change in Wound Grade/Stage No Query Text:If change please identify the Stage/Grade in the comment (ie. S2 G3) -Exudate Amt Medium (34-66%) -Exudate Type Serosanguineous -Wound Margin Flat & Intact -Granulation Amt Small (1-33%) -Granulation Quality [place] -Slough/Fibrin Yes -Necrosis Amt Large (67-100%) -Necrotic Tissue Type Adherent Slough -Structure Exposed None/Limited to Skin Breakdown -Texture (Alexandra-wound Skin Appearance) Assessed Localized Edema Scarring -Moisture (Alexandra-wound Skin Appearance Assessed ) Maceration -Color (Alexandra-wound Skin Appearance) Assessed Hemosiderin Staining -Temperature (Alexandra-wound Skin No Abnormality Appearance) (Pt Warm) -Tenderness on Palpation (Alexandra-wound No Skin Appearance) -Ulcer Cleansing Rinsed/ Irrigated with Saline -Foul Odor after Cleansing No -Anesthetic Used 5% Lidocaine Gel #10 L AZUL PROXIMAL -Combined with other wound No -Current Size (cm) - Length 0.1 -Current Size (cm) - Width 0.1 -Current Size (cm) - Depth 0.1 -Total Square Cm 0.01 -Photo Taken No -Epithelialization None Present -Tunneling No -Undermining/Tunneling No -Circular Undermining No -Classification - Thickness Full Thickness without Exposed Support Structure -Change in Wound Grade/Stage No Query Text:If change please identify the Stage/Grade in the comment (ie. S2 G3) -Exudate Amt Medium (34-66%) -Exudate Type Serosanguineous -Wound Margin Flat & Intact -Granulation Amt Small (1-33%) -Granulation Quality [place] -Slough/Fibrin Yes -Necrosis Amt Medium (34-66%) -Structure Exposed None/Limited to Skin Breakdown -Texture (Alexandra-wound Skin Appearance) Assessed Localized Edema Scarring -Moisture (Alexandra-wound Skin Appearance Assessed ) Maceration -Color (Alexandra-wound Skin Appearance) Assessed Hemosiderin Staining -Temperature (Alexandra-wound Skin No Abnormality Appearance) (Pt Warm) -Tenderness on Palpation (Alexandra-wound No Skin Appearance) -Ulcer Cleansing Rinsed/ Irrigated with Saline -Foul Odor after Cleansing No -Anesthetic Used 5% Lidocaine Gel #8 R LAT LE -Combined with other wound No -Current Size (cm) - Length 6.2 -Current Size (cm) - Width 5 -Current Size (cm) - Depth 0.1 -Total Square Cm 31.0 -Photo Taken No -Epithelialization None Present -Tunneling No -Undermining/Tunneling No -Circular Undermining No -Classification - Thickness Full Thickness without Exposed Support Structure -Change in Wound Grade/Stage No Query Text:If change please identify the Stage/Grade in the comment (ie. S2 G3) -Exudate Amt Medium (34-66%) -Exudate Type Serosanguineous -Wound Margin Distinct, Outline Attached -Granulation Amt Small (1-33%) -Granulation Quality [place] -Slough/Fibrin Yes -Necrosis Amt Medium (34-66%) -Necrotic Tissue Type Adherent Slough -Structure Exposed None/Limited to Skin Breakdown -Texture (Alexandra-wound Skin Appearance) Assessed Localized Edema Scarring -Moisture (Alexandra-wound Skin Appearance Assessed ) Dry/Scaly -Color (Alexandra-wound Skin Appearance) Assessed Hemosiderin Staining -Temperature (Alexandra-wound Skin No Abnormality Appearance) (Pt Warm) -Tenderness on Palpation (Alexandra-wound No Skin Appearance) -Ulcer Cleansing Rinsed/ Irrigated with Saline -Foul Odor after Cleansing No -Anesthetic Used 5% Lidocaine Gel #7 R SEC TOE -Combined with other wound No -Current Size (cm) - Length 1.2 -Current Size (cm) - Width 1.5 -Current Size (cm) - Depth 0.1 -Total Square Cm 1.80 -Photo Taken No -Epithelialization None Present -Tunneling No -Undermining/Tunneling No -Circular Undermining No -Classification - Thickness Full Thickness without Exposed Support Structure -Change in Wound Grade/Stage No Query Text:If change please identify the Stage/Grade in the comment (ie. S2 G3) -Exudate Amt Small (1-33%) -Exudate Type Serosanguineous -Wound Margin Distinct, Outline Attached -Granulation Amt None Present (0 %) -Slough/Fibrin Yes -Necrotic Tissue Type Adherent Slough -Structure Exposed None/Limited to Skin Breakdown -Texture (Alexandra-wound Skin Appearance) Assessed Scarring -Moisture (Alexandra-wound Skin Appearance Assessed ) Dry/Scaly -Color (Alexandra-wound Skin Appearance) Assessed Erythema -Temperature (Alexandra-wound Skin No Abnormality Appearance) (Pt Warm) -Tenderness on Palpation (Alexandra-wound No Skin Appearance) -Ulcer Cleansing Rinsed/ Irrigated with Saline -Foul Odor after Cleansing No -Anesthetic Used 5% Lidocaine Gel #6 R GRT TOE -Combined with other wound No -Current Size (cm) - Length 0.5 -Current Size (cm) - Width 1.3 -Current Size (cm) - Depth 0.1 -Total Square Cm 0.65 -Photo Taken No -Epithelialization None Present -Tunneling No -Undermining/Tunneling No -Circular Undermining No -Classification - Thickness Full Thickness without Exposed Support Structure -Change in Wound Grade/Stage No Query Text:If change please identify the Stage/Grade in the comment (ie. S2 G3) -Exudate Amt Medium (34-66%) -Exudate Type Serosanguineous -Wound Margin Distinct, Outline Attached -Granulation Amt None Present (0 %) -Slough/Fibrin Yes -Necrotic Tissue Type Adherent Slough -Structure Exposed None/Limited to Skin Breakdown -Texture (Alexandra-wound Skin Appearance) Assessed Localized Edema -Moisture (Alexandra-wound Skin Appearance Assessed ) Dry/Scaly -Color (Alexandra-wound Skin Appearance) Assessed Erythema -Temperature (Alexandra-wound Skin No Abnormality Appearance) (Pt Warm) -Tenderness on Palpation (Alexandra-wound No Skin Appearance) -Ulcer Cleansing Rinsed/ Irrigated with Saline -Foul Odor after Cleansing No -Anesthetic Used 5% Lidocaine Gel [Edema Assessment] -Lower Limb Edema Present Yes -Right Calf (cm) 43.5 -Right Ankle (cm) 28 -Left Calf (cm) 43.2 -Left Ankle (cm) 25.5 WC - Nurse 2 - General Ulcer CM Notes Start: 01/05/18 10:16 Freq: Status: Active Protocol: Activity Type Activity Date Activity User E-Sign Co-Sign Detail Recorded Client Recorded Date Recorded By Document 01/19/18 08:53 [id number] 01/19/18 09:07 01/19/18 08:53 Wound Center Nurse 2 [Procedure/Treatment] #12 LEFT MEDIAL LE -Time 08:54 -Correct Patient Yes -Correct Side, Site, Position Yes -Correct Procedure Yes -Procedure Performed Yes -Clinical Debridement Selective -Wound/Ulcer Outcome Not Healed -Ulcer Cleansing Rinsed/ Irrigated with Saline -Foul Odor after Cleansing No -Bioengineered Tissue No -Topical Lidocaine (%) 5 -Bleeding Controlled with NA -Treatment Response Procedure Tolerated Well #11 L LAT LEG -Time 08:55 -Correct Patient Yes -Correct Side, Site, Position Yes -Correct Procedure Yes -Procedure Performed Yes -Type of Procedure Debridement -Clinical Debridement Selective -Post Debridement Size (cm) - Length 9.5 -Post Debridement Size (cm) - Width 10 -Post Debridement Size (cm) - Depth 0.1 -Total Square Cm 95.0 -Wound/Ulcer Outcome Not Healed -Ulcer Cleansing Rinsed/ Irrigated with Saline -Foul Odor after Cleansing No -Bioengineered Tissue No -Injectable Lidocaine (%) 5 -Bleeding Controlled with NA -Treatment Response Procedure Tolerated Well #10 L AZUL PROXIMAL -Time 08:55 -Correct Patient Yes -Correct Side, Site, Position Yes -Correct Procedure Yes -Procedure Performed No -Post Debridement Size (cm) - Length 0 -Post Debridement Size (cm) - Width 0 -Post Debridement Size (cm) - Depth 0 -Total Square Cm 0 -Wound/Ulcer Outcome Healed- Epithelialized #8 R LAT LE -Time 09:00 -Correct Patient Yes -Correct Side, Site, Position Yes -Correct Procedure Yes -Procedure Performed Yes -Type of Procedure Debridement -Clinical Debridement Selective -Post Debridement Size (cm) - Length 6.2 -Post Debridement Size (cm) - Width 5.0 -Post Debridement Size (cm) - Depth 0.1 -Total Square Cm 31.00 -Wound/Ulcer Outcome Not Healed -Ulcer Cleansing Rinsed/ Irrigated with Saline -Foul Odor after Cleansing No -Bioengineered Tissue No -Topical Lidocaine (%) 5 -Bleeding Controlled with NA -Treatment Response Procedure Tolerated Well #7 R SEC TOE -Time 08:56 -Correct Patient Yes -Correct Side, Site, Position Yes -Correct Procedure Yes -Procedure Performed Yes -Type of Procedure Debridement -Clinical Debridement Selective -Post Debridement Size (cm) - Length 1.2 -Post Debridement Size (cm) - Width 1.5 -Post Debridement Size (cm) - Depth 0.1 -Total Square Cm 1.80 -Wound/Ulcer Outcome Not Healed -Ulcer Cleansing Rinsed/ Irrigated with Saline -Foul Odor after Cleansing No -Bioengineered Tissue No -Topical Lidocaine (%) 5 -Bleeding Controlled with NA -Treatment Response Procedure Tolerated Well #6 R GRT TOE -Time 08:56 -Correct Patient Yes -Correct Side, Site, Position Yes -Correct Procedure Yes -Procedure Performed Yes -Type of Procedure Debridement -Clinical Debridement Selective -Post Debridement Size (cm) - Length 0.5 -Post Debridement Size (cm) - Width 1.3 -Post Debridement Size (cm) - Depth 0.1 -Total Square Cm 0.65 -Wound/Ulcer Outcome Not Healed -Ulcer Cleansing Rinsed/ Irrigated with Saline -Foul Odor after Cleansing No -Bioengineered Tissue No -Topical Lidocaine (%) 5 -Bleeding Controlled with NA -Treatment Response Procedure Tolerated Well [See Physician Procedure note for Specifics] Pain Scale: 0-10 Numeric [Pain] -Is Patient Pain Free? Yes Musculoskeletal: No Tenderness to Palpation of Joints or Extremities Lymphatic: No Cervical, Supraclavicular, or Inguinal Adenopathy Neurological: Cranial nerves II-XII grossly intact, Neuro grossly intact Psych/Mental Status: Normal Affect, Appropriate, Alert and oriented to time, place, person, mood and affect Debridement Note Post-Debridement Measurements/Treatment WC - Nurse 2 - General Ulcer CM Notes Start: 01/05/18 10:16 Freq: Status: Active Protocol: Activity Type Activity Date Activity User E-Sign Co-Sign Detail Recorded Client Recorded Date Recorded By Document 01/05/18 19:50 [id number] 01/05/18 19:53 JS Document 01/12/18 11:56 JS [id number] 01/12/18 12:05 JS Document 01/19/18 08:53 JS [id number] 01/19/18 09:07 JS 01/05/18 01/12/18 01/19/18 19:50 11:56 08:53 Wound Center Nurse 2 #12 LEFT MEDIAL LE -Time 11:58 08:54 -Correct Patient Yes Yes -Correct Side, Site, Position Yes Yes -Correct Procedure Yes Yes -Procedure Performed Yes -Clinical Debridement Selective -Post Debridement Size (cm) - Length 1.0 -Post Debridement Size (cm) - Width 1.0 -Post Debridement Size (cm) - Depth 0.1 -Total Square Cm 1.00 -Wound/Ulcer Outcome Not Healed Not Healed -Ulcer Cleansing Rinsed/ Rinsed/ Irrigated with Irrigated with Saline Saline -Foul Odor after Cleansing No No -Bioengineered Tissue No No -Topical Lidocaine (%) 5 -Injectable Lidocaine (%) 4 -Injectable Lidocaine w/ Epi (%) 5 -Bleeding Controlled with NA NA -Treatment Response Procedure Procedure Tolerated Well Tolerated Well #11 L LAT LEG -Time 10:30 11:59 08:55 -Correct Patient Yes Yes Yes -Correct Side, Site, Position Yes Yes Yes -Correct Procedure Yes Yes Yes -Procedure Performed Yes Yes Yes -Type of Procedure Debridement Debridement Debridement -Clinical Debridement Subcutaneous Subcutaneous Selective -Post Debridement Size (cm) - Length 11.0 11 9.5 -Post Debridement Size (cm) - Width 10.0 9.5 10 -Post Debridement Size (cm) - Depth 0.1 0.1 0.1 -Total Square Cm 110.00 104.5 95.0 -Wound/Ulcer Outcome Not Healed Not Healed Not Healed -Ulcer Cleansing Rinsed/ Rinsed/ Rinsed/ Irrigated with Irrigated with Irrigated with Saline Saline Saline -Foul Odor after Cleansing No No No -Bioengineered Tissue No No No -Topical Lidocaine (%) 4 -Injectable Lidocaine (%) 5 -Lidocaine (ml) 5 -Bleeding Controlled with NA NA NA -Treatment Response Procedure Procedure Tolerated Well Tolerated Well #10 L AZUL PROXIMAL -Time 10:30 11:59 08:55 -Correct Patient Yes Yes Yes -Correct Side, Site, Position Yes Yes Yes -Correct Procedure Yes Yes Yes -Procedure Performed Yes Yes No -Type of Procedure Debridement Debridement -Clinical Debridement Subcutaneous Subcutaneous -Post Debridement Size (cm) - Length 3.0 3.0 0 -Post Debridement Size (cm) - Width 2.0 1.5 0 -Post Debridement Size (cm) - Depth 0.1 0.1 0 -Total Square Cm 6.00 4.50 0 -Wound/Ulcer Outcome Not Healed Not Healed Healed- Epithelialized -Ulcer Cleansing Rinsed/ Rinsed/ Irrigated with Irrigated with Saline Saline -Foul Odor after Cleansing No No -Bioengineered Tissue No No -Topical Lidocaine (%) 4 -Lidocaine (ml) 5 -Bleeding Controlled with NA NA -Treatment Response Procedure Procedure Tolerated Well Tolerated Well #9 R LAT KNEE -Time 10:30 12:04 -Correct Patient Yes Yes -Correct Side, Site, Position Yes Yes -Correct Procedure Yes Yes -Procedure Performed Yes No -Type of Procedure Debridement -Clinical Debridement Subcutaneous -Post Debridement Size (cm) - Length 8.5 0 -Post Debridement Size (cm) - Width 6.0 0 -Post Debridement Size (cm) - Depth 0.1 0 -Total Square Cm 51.00 0 -Wound/Ulcer Outcome Not Healed Not Healed -Ulcer Cleansing Rinsed/ Rinsed/ Irrigated with Irrigated with Saline Saline -Foul Odor after Cleansing No -Bioengineered Tissue No -Topical Lidocaine (%) 4 -Lidocaine (ml) 5 -Bleeding Controlled with NA NA -Treatment Response Procedure Procedure Tolerated Well Tolerated Well #8 R LAT LE -Time 12:01 09:00 -Correct Patient Yes Yes -Correct Side, Site, Position Yes Yes -Correct Procedure Yes Yes -Procedure Performed Yes Yes -Type of Procedure Debridement Debridement -Clinical Debridement Subcutaneous Selective -Post Debridement Size (cm) - Length 5.0 6.2 -Post Debridement Size (cm) - Width 4.5 5.0 -Post Debridement Size (cm) - Depth 0.1 0.1 -Total Square Cm 22.50 31.00 -Wound/Ulcer Outcome Not Healed Not Healed -Ulcer Cleansing Rinsed/ Rinsed/ Irrigated with Irrigated with Saline Saline -Foul Odor after Cleansing No No -Bioengineered Tissue No No -Topical Lidocaine (%) 4 5 -Lidocaine (ml) 5 -Bleeding Controlled with NA NA -Treatment Response Procedure Procedure Tolerated Well Tolerated Well #7 R SEC TOE -Time 10:30 12:02 08:56 -Correct Patient Yes Yes Yes -Correct Side, Site, Position Yes Yes Yes -Correct Procedure Yes Yes Yes -Procedure Performed Yes Yes Yes -Type of Procedure Debridement Debridement Debridement -Clinical Debridement Subcutaneous Subcutaneous Selective -Post Debridement Size (cm) - Length 1.0 1.3 1.2 -Post Debridement Size (cm) - Width 1.4 1.3 1.5 -Post Debridement Size (cm) - Depth 0.1 0.1 0.1 -Total Square Cm 1.40 1.69 1.80 -Wound/Ulcer Outcome Not Healed Not Healed Not Healed -Ulcer Cleansing Rinsed/ Rinsed/ Rinsed/ Irrigated with Irrigated with Irrigated with Saline Saline Saline -Foul Odor after Cleansing No No No -Bioengineered Tissue No No No -Topical Lidocaine (%) 4 5 -Lidocaine (ml) 5 -Bleeding Controlled with NA NA -Treatment Response Procedure Procedure Tolerated Well Tolerated Well #6 R GRT TOE -Time 10:30 12:02 08:56 -Correct Patient Yes Yes Yes -Correct Side, Site, Position Yes Yes Yes -Correct Procedure Yes Yes Yes -Procedure Performed Yes Yes Yes -Type of Procedure Debridement Debridement Debridement -Clinical Debridement Subcutaneous Subcutaneous Selective -Post Debridement Size (cm) - Length 1.0 1.0 0.5 -Post Debridement Size (cm) - Width 1.1 1.0 1.3 -Post Debridement Size (cm) - Depth 0.1 0.1 0.1 -Total Square Cm 1.10 1.00 0.65 -Wound/Ulcer Outcome Not Healed Not Healed Not Healed -Ulcer Cleansing Rinsed/ Rinsed/ Rinsed/ Irrigated with Irrigated with Irrigated with Saline Saline Saline -Foul Odor after Cleansing No No No -Bioengineered Tissue No No No -Topical Lidocaine (%) 4 5 -Lidocaine (ml) 5 -Bleeding Controlled with NA NA NA -Treatment Response Procedure Procedure Procedure Tolerated Well Tolerated Well Tolerated Well Pain Scale: 0-10 Numeric Is Patient Pain Free? Yes Yes Yes Wound debrided: Left lateral lower leg cluster Type of Debridement: Selective debridement Anesthesia Used: 5% Lidocaine Gel Depth: Down to and including healthy tissue Percentage of wound debrided: 100 Instrument Used: 5mm curette Tissue Removed: Fibrin Severity: Limited To Skin Breakdown Bleeding Controlled with: Pressure Patient tolerated procedure well - Additional Wound Wound debrided: Right lateral lower leg ulcers cluster Type of Debridement: Selective debridement Anesthesia Used: 5% Lidocaine Gel Depth: Down to and including healthy tissue Percentage of wound debrided: 100 Instrument Used: 5mm curette Tissue Removed: Fibrin Severity: Limited To Skin Breakdown Amount of bleeding with debridement: None Bleeding Controlled with: Pressure Patient tolerated procedure: Patient tolerated procedure well - Additional Wound Wound debrided: Right great toe Type of Debridement: Selective debridement Anesthesia Used: 5% Lidocaine Gel Depth: Down to and including healthy tissue Percentage of wound debrided: 100 Instrument Used: 5mm curette Tissue Removed: Fibrin Severity: Limited To Skin Breakdown Amount of bleeding with debridement: None Bleeding Controlled with: Pressure Patient tolerated procedure: Patient tolerated procedure well - Additional Wound Wound debrided: Right second toe Type of Debridement: Selective debridement Anesthesia Used: 5% Lidocaine Gel Depth: Down to and including healthy tissue Instrument Used: 5mm curette Tissue Removed: Fibrin Severity: Limited To Skin Breakdown Amount of bleeding with debridement: None Bleeding Controlled with: Pressure Patient tolerated procedure: Patient tolerated procedure well Assessment/Plan Active Problems Ulcer of left lower leg (Acute) Multiple superficial wounds with infection (Acute) Staphylococcus aureus infection (Acute) Peripheral vascular occlusive disease (Acute) Peripheral vascular occlusive disease (Chronic) Pain in both lower legs (Chronic) Morbid obesity with BMI of 50.0-59.9, adult (Chronic) Bilateral edema of lower extremity (Acute) Difficulty walking down slope (Acute) Assessment: Cellulitis bilateral lower legs. Edema bilateral lower legs. Left lower leg ulcers and and lateral. Morbid obesity. Pacemaker. Left azul ulcer resolved. Peripheral vascular occlusive disease. Renal insufficiency Plan: Wash the legs with Hibiclens. Apply Xeroform dressings to open areas. Cover with ABDs and Luisa. Apply gauze between toes. Continue to compress with Hernandez wraps. Follow-up one week. Make appointment with Dr. Tripp Josue
[2018-01-26 09:29] VITALS: BP 146/90; PULSE 78; RESP 16; TEMP 35.9; BMI 42.0
--- NOTE | 2018-01-26 11:58 | PN.PCM_ITS ---
(1) Bilateral edema of lower extremity Status: Acute Current Visit: Yes Code(s): R60.0 - Localized edema (2) Difficulty walking down slope Status: Acute Current Visit: Yes Code(s): R26.2 - Difficulty in walking, not elsewhere classified (3) Morbid obesity with BMI of 50.0-59.9, adult Status: Chronic Current Visit: Yes Code(s): E66.01 - Morbid (severe) obesity due to excess calories; Z68.43 - Body mass index (BMI) 50-59.9 , adult (4) Pain in both lower legs Status: Chronic Current Visit: Yes Code(s): M79.661 - Pain in right lower leg; M79.662 - Pain in left lower leg (5) Peripheral vascular occlusive disease Status: Chronic Current Visit: Yes Code(s): I73.9 - Peripheral vascular disease, unspecified (6) Ulcer of left lower leg Status: Acute Current Visit: Yes Code(s): L97.929 - Non-pressure chronic ulcer of unspecified part of left lower leg with unspecified severity (7) Multiple superficial wounds with infection Status: Acute Current Visit: Yes Code(s): T07.XXXA - Unspecified multiple injuries, initial encounter; L08.9 - Local infection of the skin and subcutaneous tissue, unspecified (8) Staphylococcus aureus infection Status: Acute Current Visit: Yes Code(s): A49.01 - Methicillin susceptible Staphylococcus aureus infection, unspecified site (9) Peripheral vascular occlusive disease Status: Acute Current Visit: Yes Code(s): I73.9 - Peripheral vascular disease, unspecified (10) Ulcer of right lower leg Status: Acute Current Visit: Yes Code(s): L97.919 - Non-pressure chronic ulcer of unspecified part of right lower leg with unspecified severity Type of Wound Date of Service: 01/26/18 Chief Complaint: Follow-up on nonhealing ulcers of the left lower leg with seepage History of Wound: 82-year-old white female is been here before for the same has extreme peripheral vascular occlusive disease and bilateral lower leg. Patient has been compliant and has been wearing her compression stockings but approximately mid-October with a small breakdown of skin. The daughter who is her golf club weighter states that it just started pouring out of her pores and she literally was dripping all over the floor of the yellow and clear drainage. She has developed a lot of cellulitis since then. Patient has tried to go to her regular doctor but they just increased her Lasix. Progress of Wound: Today the superficial blistering openings of the bilateral lower legs are much improved about half the size they were last week. Patient is being currently treated for a staph infection lower extremity and taking the antibiotic well. Continue with Xeroform dressings for healing. 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 Patient is already on Xarelto. Patient has an appointment with Dr. Josue next Monday. Her toes are superficial all of her wounds are superficial and filling in nicely - Physical Exam Vital Signs Temp Pulse Resp BP 96.6 F L 78 16 146/90 H 01/26/18 09:29 01/26/18 09:29 01/26/18 09:29 01/26/18 09:29 General: Oriented x3, Cooperative, Well developed HEENT: Atraumatic, PERRLA Oral: Moist Mucosa Neck: Supple, No JVD Lungs: Clear to auscultation, Normal air movement Cardiovascular: Regular rate, Regular Rhythm Abdomen: Bowel Sounds Present, Soft, Non Tender, No Hepato-splenomegaly Extremities: No clubbing, No edema, - - Ulcers bilateral superficial to lower extremities and right great toe and second toe Wound Measurements and Assessment WC - Nurse 1 - General Ulcer Measurement Start: 01/05/18 10:16 Freq: Status: Active Protocol: Activity Type Activity Date Activity User E-Sign Co-Sign Detail Recorded Client Recorded Date Recorded By Document 01/26/18 09:29 [id number] 01/26/18 09:48 01/26/18 09:29 Wound Center Nurse 1 [Ulcer Assessment] #13 right azul -Combined with other wound No -Date of Last Picture (Recall this 01/26/18 field) -Photo Taken Yes -Epithelialization Small 1-33% -Tunneling No -Undermining/Tunneling No -Circular Undermining No -Exudate Amt Small (1-33%) -Exudate Type Serosanguineous -Wound Margin Distinct, Outline Attached -Granulation Amt Small (1-33%) -Granulation Quality [place] Red -Slough/Fibrin Yes -Necrosis Amt None Present (0 %) -Necrotic Tissue Type Adherent Slough -Structure Exposed None/Limited to Skin Breakdown -Color (Alexandra-wound Skin Appearance) Assessed Hemosiderin Staining -Temperature (Alexandra-wound Skin No Abnormality Appearance) (Pt Warm) -Tenderness on Palpation (Alexandra-wound No Skin Appearance) -Ulcer Cleansing Rinsed/ Irrigated with Saline -Foul Odor after Cleansing No -Anesthetic Used 4% Lidocaine Solution #11 L LAT LEG -Combined with other wound No -Current Size (cm) - Length 10.4 -Current Size (cm) - Width 9.1 -Current Size (cm) - Depth 0.1 -Total Square Cm 94.64 -Photo Taken No -Epithelialization Medium 34-66% -Tunneling No -Undermining/Tunneling No -Circular Undermining No -Exudate Amt Medium (34-66%) -Exudate Type Serosanguineous -Wound Margin Distinct, Outline Attached #8 R LAT LE -Combined with other wound No -Current Size (cm) - Length 5.7 -Current Size (cm) - Width 5.4 -Current Size (cm) - Depth 0.1 -Total Square Cm 30.78 -Photo Taken No -Epithelialization None Present -Tunneling No -Undermining/Tunneling No -Circular Undermining No -Exudate Amt Small (1-33%) -Exudate Type Serosanguineous -Wound Margin Distinct, Outline Attached #7 R SEC TOE -Combined with other wound No -Current Size (cm) - Length 1.2 -Current Size (cm) - Width 2.1 -Current Size (cm) - Depth 0.1 -Total Square Cm 2.52 -Photo Taken No -Epithelialization None Present -Tunneling No -Undermining/Tunneling No -Circular Undermining No -Exudate Amt Small (1-33%) -Exudate Type Serosanguineous -Wound Margin Distinct, Outline Attached -Granulation Quality [place] Red -Slough/Fibrin Yes -Necrosis Amt None Present (0 %) -Necrotic Tissue Type Adherent Slough -Texture (Alexandra-wound Skin Appearance) Assessed -Moisture (Alexandra-wound Skin Appearance Assessed ) Weeping -Color (Alexandra-wound Skin Appearance) Assessed -Temperature (Alexandra-wound Skin No Abnormality Appearance) (Pt Warm) -Tenderness on Palpation (Alexandra-wound Yes Skin Appearance) -Ulcer Cleansing Rinsed/ Irrigated with Saline -Foul Odor after Cleansing No -Anesthetic Used 4% Lidocaine Solution #6 R GRT TOE -Combined with other wound No -Current Size (cm) - Length 0.5 -Current Size (cm) - Width 1.3 -Current Size (cm) - Depth 0.1 -Total Square Cm 0.65 -Photo Taken No -Epithelialization None Present -Tunneling No -Undermining/Tunneling No -Circular Undermining No -Exudate Amt Small (1-33%) -Exudate Type Serosanguineous -Wound Margin Distinct, Outline Attached -Granulation Amt None Present (0 %) -Granulation Quality N/A -Slough/Fibrin No -Necrosis Amt None Present (0 %) -Necrotic Tissue Type Adherent Slough -Texture (Alexandra-wound Skin Appearance) No Abnormality Assessed -Moisture (Alexandra-wound Skin Appearance Assessed ) Weeping -Color (Alexandra-wound Skin Appearance) Erythema -Temperature (Alexandra-wound Skin No Abnormality Appearance) (Pt Warm) -Tenderness on Palpation (Alexandra-wound Yes Skin Appearance) -Ulcer Cleansing Rinsed/ Irrigated with Saline -Foul Odor after Cleansing No -Anesthetic Used 4% Lidocaine Solution [Edema Assessment] -Lower Limb Edema Present Yes -Right Calf (cm) 45.4 -Right Ankle (cm) 29.1 -Left Calf (cm) 41.8 -Left Ankle (cm) 26.6 WC - Nurse 2 - General Ulcer CM Notes Start: 01/05/18 10:16 Freq: Status: Active Protocol: Activity Type Activity Date Activity User E-Sign Co-Sign Detail Recorded Client Recorded Date Recorded By Document 01/26/18 10:06 VALERIE [id number] 01/26/18 10:14 VALERIE 01/26/18 10:06 Wound Center Nurse 2 [Procedure/Treatment] #13 right azul -Time 10:07 -Correct Patient Yes -Correct Side, Site, Position Yes -Correct Procedure Yes -Procedure Performed Yes -Type of Procedure Debridement -Clinical Debridement Subcutaneous -Post Debridement Size (cm) - Length 4.3 -Post Debridement Size (cm) - Width 1.0 -Post Debridement Size (cm) - Depth 0.1 -Total Square Cm 4.30 -Wound/Ulcer Outcome Not Healed -Ulcer Cleansing Rinsed/ Irrigated with Saline -Foul Odor after Cleansing No -Bioengineered Tissue No -Topical Lidocaine (%) 4 -Lidocaine (ml) 5 -Bleeding Controlled with NA -Treatment Response Procedure Tolerated Well #11 L LAT LEG -Time 10:07 -Correct Patient Yes -Correct Side, Site, Position Yes -Correct Procedure Yes -Procedure Performed Yes -Type of Procedure Debridement -Clinical Debridement Subcutaneous -Post Debridement Size (cm) - Length 9.5 -Post Debridement Size (cm) - Width 11.5 -Post Debridement Size (cm) - Depth 0.1 -Total Square Cm 109.25 -Wound/Ulcer Outcome Not Healed -Ulcer Cleansing Rinsed/ Irrigated with Saline -Foul Odor after Cleansing No -Bioengineered Tissue No -Topical Lidocaine (%) 4 -Lidocaine (ml) 5 -Bleeding Controlled with NA -Treatment Response Procedure Tolerated Well #8 R LAT LE -Time 10:09 -Correct Patient Yes -Correct Side, Site, Position Yes -Correct Procedure Yes -Procedure Performed Yes -Type of Procedure Debridement -Clinical Debridement Subcutaneous -Post Debridement Size (cm) - Length 6.0 -Post Debridement Size (cm) - Width 6.0 -Post Debridement Size (cm) - Depth 0.1 -Total Square Cm 36.00 -Wound/Ulcer Outcome Not Healed -Ulcer Cleansing Rinsed/ Irrigated with Saline -Foul Odor after Cleansing No -Bioengineered Tissue No -Topical Lidocaine (%) 4 -Lidocaine (ml) 5 -Bleeding Controlled with NA -Treatment Response Procedure Tolerated Well #7 R SEC TOE -Time 10:09 -Correct Patient Yes -Correct Side, Site, Position Yes -Correct Procedure Yes -Procedure Performed Yes -Type of Procedure Debridement -Clinical Debridement Subcutaneous -Post Debridement Size (cm) - Length 1.0 -Post Debridement Size (cm) - Width 1.5 -Post Debridement Size (cm) - Depth 0.1 -Total Square Cm 1.50 -Wound/Ulcer Outcome Not Healed -Ulcer Cleansing Rinsed/ Irrigated with Saline -Foul Odor after Cleansing No -Bioengineered Tissue No -Topical Lidocaine (%) 4 -Lidocaine (ml) 5 -Bleeding Controlled with NA -Treatment Response Procedure Tolerated Well #6 R GRT TOE -Time 10:08 -Correct Patient Yes -Correct Side, Site, Position Yes -Correct Procedure Yes -Procedure Performed Yes -Type of Procedure Debridement -Clinical Debridement Subcutaneous -Post Debridement Size (cm) - Length 0.8 -Post Debridement Size (cm) - Width 0.4 -Post Debridement Size (cm) - Depth 0.1 -Total Square Cm 0.32 -Wound/Ulcer Outcome Not Healed -Ulcer Cleansing Rinsed/ Irrigated with Saline -Foul Odor after Cleansing No -Bioengineered Tissue No -Topical Lidocaine (%) 4 -Lidocaine (ml) 5 -Bleeding Controlled with NA -Treatment Response Procedure Tolerated Well [See Physician Procedure note for Specifics] Pain Scale: 0-10 Numeric [Pain] -Is Patient Pain Free? Yes Musculoskeletal: No Tenderness to Palpation of Joints or Extremities Lymphatic: No Cervical, Supraclavicular, or Inguinal Adenopathy Neurological: Cranial nerves II-XII grossly intact, Neuro grossly intact Psych/Mental Status: Normal Affect, Appropriate Debridement Note Post-Debridement Measurements/Treatment WC - Nurse 2 - General Ulcer CM Notes Start: 01/05/18 10:16 Freq: Status: Active Protocol: Activity Type Activity Date Activity User E-Sign Co-Sign Detail Recorded Client Recorded Date Recorded By Document 01/05/18 19:50 [id number] 01/05/18 19:53 Document 01/12/18 11:56 [id number] 01/12/18 12:05 Document 01/19/18 08:53 [id number] 01/19/18 09:07 Document 01/26/18 10:06 [id number] 01/26/18 10:14 01/05/18 01/12/18 01/19/18 19:50 11:56 08:53 Wound Center Nurse 2 #13 right azul -Time -Correct Patient -Correct Side, Site, Position -Correct Procedure -Procedure Performed -Type of Procedure -Clinical Debridement -Post Debridement Size (cm) - Length -Post Debridement Size (cm) - Width -Post Debridement Size (cm) - Depth -Total Square Cm -Wound/Ulcer Outcome -Ulcer Cleansing -Foul Odor after Cleansing -Bioengineered Tissue -Topical Lidocaine (%) -Lidocaine (ml) -Bleeding Controlled with -Treatment Response #12 LEFT MEDIAL LE -Time 11:58 08:54 -Correct Patient Yes Yes -Correct Side, Site, Position Yes Yes -Correct Procedure Yes Yes -Procedure Performed Yes -Clinical Debridement Selective -Post Debridement Size (cm) - Length 1.0 -Post Debridement Size (cm) - Width 1.0 -Post Debridement Size (cm) - Depth 0.1 -Total Square Cm 1.00 -Wound/Ulcer Outcome Not Healed Not Healed -Ulcer Cleansing Rinsed/ Rinsed/ Irrigated with Irrigated with Saline Saline -Foul Odor after Cleansing No No -Bioengineered Tissue No No -Topical Lidocaine (%) 5 -Injectable Lidocaine (%) 4 -Injectable Lidocaine w/ Epi (%) 5 -Bleeding Controlled with NA NA -Treatment Response Procedure Procedure Tolerated Well Tolerated Well #11 L LAT LEG -Time 10:30 11:59 08:55 -Correct Patient Yes Yes Yes -Correct Side, Site, Position Yes Yes Yes -Correct Procedure Yes Yes Yes -Procedure Performed Yes Yes Yes -Type of Procedure Debridement Debridement Debridement -Clinical Debridement Subcutaneous Subcutaneous Selective -Post Debridement Size (cm) - Length 11.0 11 9.5 -Post Debridement Size (cm) - Width 10.0 9.5 10 -Post Debridement Size (cm) - Depth 0.1 0.1 0.1 -Total Square Cm 110.00 104.5 95.0 -Wound/Ulcer Outcome Not Healed Not Healed Not Healed -Ulcer Cleansing Rinsed/ Rinsed/ Rinsed/ Irrigated with Irrigated with Irrigated with Saline Saline Saline -Foul Odor after Cleansing No No No -Bioengineered Tissue No No No -Topical Lidocaine (%) 4 -Injectable Lidocaine (%) 5 -Lidocaine (ml) 5 -Bleeding Controlled with NA NA NA -Treatment Response Procedure Procedure Tolerated Well Tolerated Well #10 L AZUL PROXIMAL -Time 10:30 11:59 08:55 -Correct Patient Yes Yes Yes -Correct Side, Site, Position Yes Yes Yes -Correct Procedure Yes Yes Yes -Procedure Performed Yes Yes No -Type of Procedure Debridement Debridement -Clinical Debridement Subcutaneous Subcutaneous -Post Debridement Size (cm) - Length 3.0 3.0 0 -Post Debridement Size (cm) - Width 2.0 1.5 0 -Post Debridement Size (cm) - Depth 0.1 0.1 0 -Total Square Cm 6.00 4.50 0 -Wound/Ulcer Outcome Not Healed Not Healed Healed- Epithelialized -Ulcer Cleansing Rinsed/ Rinsed/ Irrigated with Irrigated with Saline Saline -Foul Odor after Cleansing No No -Bioengineered Tissue No No -Topical Lidocaine (%) 4 -Lidocaine (ml) 5 -Bleeding Controlled with NA NA -Treatment Response Procedure Procedure Tolerated Well Tolerated Well #9 R LAT KNEE -Time 10:30 12:04 -Correct Patient Yes Yes -Correct Side, Site, Position Yes Yes -Correct Procedure Yes Yes -Procedure Performed Yes No -Type of Procedure Debridement -Clinical Debridement Subcutaneous -Post Debridement Size (cm) - Length 8.5 0 -Post Debridement Size (cm) - Width 6.0 0 -Post Debridement Size (cm) - Depth 0.1 0 -Total Square Cm 51.00 0 -Wound/Ulcer Outcome Not Healed Not Healed -Ulcer Cleansing Rinsed/ Rinsed/ Irrigated with Irrigated with Saline Saline -Foul Odor after Cleansing No -Bioengineered Tissue No -Topical Lidocaine (%) 4 -Lidocaine (ml) 5 -Bleeding Controlled with NA NA -Treatment Response Procedure Procedure Tolerated Well Tolerated Well #8 R LAT LE -Time 12:01 09:00 -Correct Patient Yes Yes -Correct Side, Site, Position Yes Yes -Correct Procedure Yes Yes -Procedure Performed Yes Yes -Type of Procedure Debridement Debridement -Clinical Debridement Subcutaneous Selective -Post Debridement Size (cm) - Length 5.0 6.2 -Post Debridement Size (cm) - Width 4.5 5.0 -Post Debridement Size (cm) - Depth 0.1 0.1 -Total Square Cm 22.50 31.00 -Wound/Ulcer Outcome Not Healed Not Healed -Ulcer Cleansing Rinsed/ Rinsed/ Irrigated with Irrigated with Saline Saline -Foul Odor after Cleansing No No -Bioengineered Tissue No No -Topical Lidocaine (%) 4 5 -Lidocaine (ml) 5 -Bleeding Controlled with NA NA -Treatment Response Procedure Procedure Tolerated Well Tolerated Well #7 R SEC TOE -Time 10:30 12:02 08:56 -Correct Patient Yes Yes Yes -Correct Side, Site, Position Yes Yes Yes -Correct Procedure Yes Yes Yes -Procedure Performed Yes Yes Yes -Type of Procedure Debridement Debridement Debridement -Clinical Debridement Subcutaneous Subcutaneous Selective -Post Debridement Size (cm) - Length 1.0 1.3 1.2 -Post Debridement Size (cm) - Width 1.4 1.3 1.5 -Post Debridement Size (cm) - Depth 0.1 0.1 0.1 -Total Square Cm 1.40 1.69 1.80 -Wound/Ulcer Outcome Not Healed Not Healed Not Healed -Ulcer Cleansing Rinsed/ Rinsed/ Rinsed/ Irrigated with Irrigated with Irrigated with Saline Saline Saline -Foul Odor after Cleansing No No No -Bioengineered Tissue No No No -Topical Lidocaine (%) 4 5 -Lidocaine (ml) 5 -Bleeding Controlled with NA NA -Treatment Response Procedure Procedure Tolerated Well Tolerated Well #6 R GRT TOE -Time 10:30 12:02 08:56 -Correct Patient Yes Yes Yes -Correct Side, Site, Position Yes Yes Yes -Correct Procedure Yes Yes Yes -Procedure Performed Yes Yes Yes -Type of Procedure Debridement Debridement Debridement -Clinical Debridement Subcutaneous Subcutaneous Selective -Post Debridement Size (cm) - Length 1.0 1.0 0.5 -Post Debridement Size (cm) - Width 1.1 1.0 1.3 -Post Debridement Size (cm) - Depth 0.1 0.1 0.1 -Total Square Cm 1.10 1.00 0.65 -Wound/Ulcer Outcome Not Healed Not Healed Not Healed -Ulcer Cleansing Rinsed/ Rinsed/ Rinsed/ Irrigated with Irrigated with Irrigated with Saline Saline Saline -Foul Odor after Cleansing No No No -Bioengineered Tissue No No No -Topical Lidocaine (%) 4 5 -Lidocaine (ml) 5 -Bleeding Controlled with NA NA NA -Treatment Response Procedure Procedure Procedure Tolerated Well Tolerated Well Tolerated Well Pain Scale: 0-10 Numeric Is Patient Pain Free? Yes Yes Yes 01/26/18 10:06 Wound Center Nurse 2 #13 right azul -Time 10:07 -Correct Patient Yes -Correct Side, Site, Position Yes -Correct Procedure Yes -Procedure Performed Yes -Type of Procedure Debridement -Clinical Debridement Subcutaneous -Post Debridement Size (cm) - Length 4.3 -Post Debridement Size (cm) - Width 1.0 -Post Debridement Size (cm) - Depth 0.1 -Total Square Cm 4.30 -Wound/Ulcer Outcome Not Healed -Ulcer Cleansing Rinsed/ Irrigated with Saline -Foul Odor after Cleansing No -Bioengineered Tissue No -Topical Lidocaine (%) 4 -Lidocaine (ml) 5 -Bleeding Controlled with NA -Treatment Response Procedure Tolerated Well #12 LEFT MEDIAL LE -Time -Correct Patient -Correct Side, Site, Position -Correct Procedure -Procedure Performed -Clinical Debridement -Post Debridement Size (cm) - Length -Post Debridement Size (cm) - Width -Post Debridement Size (cm) - Depth -Total Square Cm -Wound/Ulcer Outcome -Ulcer Cleansing -Foul Odor after Cleansing -Bioengineered Tissue -Topical Lidocaine (%) -Injectable Lidocaine (%) -Injectable Lidocaine w/ Epi (%) -Bleeding Controlled with -Treatment Response #11 L LAT LEG -Time 10:07 -Correct Patient Yes -Correct Side, Site, Position Yes -Correct Procedure Yes -Procedure Performed Yes -Type of Procedure Debridement -Clinical Debridement Subcutaneous -Post Debridement Size (cm) - Length 9.5 -Post Debridement Size (cm) - Width 11.5 -Post Debridement Size (cm) - Depth 0.1 -Total Square Cm 109.25 -Wound/Ulcer Outcome Not Healed -Ulcer Cleansing Rinsed/ Irrigated with Saline -Foul Odor after Cleansing No -Bioengineered Tissue No -Topical Lidocaine (%) 4 -Injectable Lidocaine (%) -Lidocaine (ml) 5 -Bleeding Controlled with NA -Treatment Response Procedure Tolerated Well #10 L AZUL PROXIMAL -Time -Correct Patient -Correct Side, Site, Position -Correct Procedure -Procedure Performed -Type of Procedure -Clinical Debridement -Post Debridement Size (cm) - Length -Post Debridement Size (cm) - Width -Post Debridement Size (cm) - Depth -Total Square Cm -Wound/Ulcer Outcome -Ulcer Cleansing -Foul Odor after Cleansing -Bioengineered Tissue -Topical Lidocaine (%) -Lidocaine (ml) -Bleeding Controlled with -Treatment Response #9 R LAT KNEE -Time -Correct Patient -Correct Side, Site, Position -Correct Procedure -Procedure Performed -Type of Procedure -Clinical Debridement -Post Debridement Size (cm) - Length -Post Debridement Size (cm) - Width -Post Debridement Size (cm) - Depth -Total Square Cm -Wound/Ulcer Outcome -Ulcer Cleansing -Foul Odor after Cleansing -Bioengineered Tissue -Topical Lidocaine (%) -Lidocaine (ml) -Bleeding Controlled with -Treatment Response #8 R LAT LE -Time 10:09 -Correct Patient Yes -Correct Side, Site, Position Yes -Correct Procedure Yes -Procedure Performed Yes -Type of Procedure Debridement -Clinical Debridement Subcutaneous -Post Debridement Size (cm) - Length 6.0 -Post Debridement Size (cm) - Width 6.0 -Post Debridement Size (cm) - Depth 0.1 -Total Square Cm 36.00 -Wound/Ulcer Outcome Not Healed -Ulcer Cleansing Rinsed/ Irrigated with Saline -Foul Odor after Cleansing No -Bioengineered Tissue No -Topical Lidocaine (%) 4 -Lidocaine (ml) 5 -Bleeding Controlled with NA -Treatment Response Procedure Tolerated Well #7 R SEC TOE -Time 10:09 -Correct Patient Yes -Correct Side, Site, Position Yes -Correct Procedure Yes -Procedure Performed Yes -Type of Procedure Debridement -Clinical Debridement Subcutaneous -Post Debridement Size (cm) - Length 1.0 -Post Debridement Size (cm) - Width 1.5 -Post Debridement Size (cm) - Depth 0.1 -Total Square Cm 1.50 -Wound/Ulcer Outcome Not Healed -Ulcer Cleansing Rinsed/ Irrigated with Saline -Foul Odor after Cleansing No -Bioengineered Tissue No -Topical Lidocaine (%) 4 -Lidocaine (ml) 5 -Bleeding Controlled with NA -Treatment Response Procedure Tolerated Well #6 R GRT TOE -Time 10:08 -Correct Patient Yes -Correct Side, Site, Position Yes -Correct Procedure Yes -Procedure Performed Yes -Type of Procedure Debridement -Clinical Debridement Subcutaneous -Post Debridement Size (cm) - Length 0.8 -Post Debridement Size (cm) - Width 0.4 -Post Debridement Size (cm) - Depth 0.1 -Total Square Cm 0.32 -Wound/Ulcer Outcome Not Healed -Ulcer Cleansing Rinsed/ Irrigated with Saline -Foul Odor after Cleansing No -Bioengineered Tissue No -Topical Lidocaine (%) 4 -Lidocaine (ml) 5 -Bleeding Controlled with NA -Treatment Response Procedure Tolerated Well Pain Scale: 0-10 Numeric Is Patient Pain Free? Yes Wound debrided: Left lateral lower leg ulcers Type of Debridement: Excisional debridement Anesthesia Used: 5% Lidocaine Gel Depth: Down to and including healthy tissue Percentage of wound debrided: 100 Instrument Used: 5mm curette Tissue Removed: Fibrin Amount of bleeding with debridement: None Bleeding Controlled with: Pressure Patient tolerated procedure well - Additional Wound Wound debrided: Right azul Type of Debridement: Excisional debridement Anesthesia Used: 5% Lidocaine Gel Depth: Down to and including healthy tissue Percentage of wound debrided: 100 Instrument Used: 5mm curette Tissue Removed: Fibrin Severity: Limited To Skin Breakdown Bleeding Controlled with: Pressure Patient tolerated procedure: Patient tolerated procedure well - Additional Wound Wound debrided: Right lateral lower leg ulcers Type of Debridement: Excisional debridement Anesthesia Used: 5% Lidocaine Gel Depth: Down to and including healthy tissue Percentage of wound debrided: 100 Instrument Used: 5mm curette Tissue Removed: Fibrin Severity: Limited To Skin Breakdown Amount of bleeding with debridement: None Patient tolerated procedure: Patient tolerated procedure well - Additional Wound Wound debrided: Right great toe Type of Debridement: Excisional debridement Anesthesia Used: 5% Lidocaine Gel Depth: Down to and including healthy tissue, in the subcutaneous layer Percentage of wound debrided: 100 Instrument Used: 5mm curette Tissue Removed: Fibrin Severity: Limited To Skin Breakdown Amount of bleeding with debridement: None Bleeding Controlled with: Pressure Patient tolerated procedure: Patient tolerated procedure well - Additional Wound Wound debrided: Right second toe Laterality: Right Type of Debridement: Excisional debridement Anesthesia Used: 5% Lidocaine Gel Depth: Down to and including healthy tissue Instrument Used: 5mm curette Tissue Removed: Fibrin Severity: Limited To Skin Breakdown Amount of bleeding with debridement: None Bleeding Controlled with: Pressure Patient tolerated procedure: Patient tolerated procedure well Assessment/Plan Active Problems Ulcer of left lower leg (Acute) Multiple superficial wounds with infection (Acute) Staphylococcus aureus infection (Acute) Peripheral vascular occlusive disease (Acute) Ulcer of right lower leg (Acute) Peripheral vascular occlusive disease (Chronic) Pain in both lower legs (Chronic) Morbid obesity with BMI of 50.0-59.9, adult (Chronic) Bilateral edema of lower extremity (Acute) Difficulty walking down slope (Acute) Assessment: Cellulitis bilateral lower legs. Edema bilateral lower legs. Left lower leg ulcers and and lateral. Morbid obesity. Pacemaker. Left azul ulcer resolved. Peripheral vascular occlusive disease. Renal insufficiency Plan: Wash the legs with Hibiclens. Apply Xeroform dressings to open areas. Cover with ABDs and Luisa. Apply gauze between toes. Continue to compress with Hernandez wraps. Follow-up one week. Make appointment with Dr. Tripp Josue
== END 2018-01-30 23:59 ==
LOC: WC 09:15
PROVIDERS: Family Provider Family Medicine; PCP Family Medicine; Visit Provider Nurse Practitioner
DX: I73.9 Peripheral vascular disease, unspecified (principal); L97.821 Non-pressure chronic ulcer of other part of left lower leg limited to breakdown of skin; R60.0 Localized edema; R26.2 Difficulty in walking, not elsewhere classified; E66.01 Morbid (severe) obesity due to excess calories; Z68.43 Body mass index [BMI] 50.0-59.9, adult; M79.661 Pain in right lower leg; M79.662 Pain in left lower leg; Z79.899 Other long term (current) drug therapy; I82.532 Chronic embolism and thrombosis of left popliteal vein; Z79.01 Long term (current) use of anticoagulants; L97.811 Non-pressure chronic ulcer of other part of right lower leg limited to breakdown of skin; L97.511 Non-pressure chronic ulcer of other part of right foot limited to breakdown of skin; A49.01 Methicillin susceptible Staphylococcus aureus infection, unspecified site; Z95.0 Presence of cardiac pacemaker
CPT/HCPCS: 11042; 11045; 87070; 87075; 87077; 87186; 87205; 93970; 97597; 99212; G0463

== ENCOUNTER 2018-02-02 08:59 | Outpatient (RCR) | payer MEDICARE, MEDICAID, SELFPAY ==
[2018-01-31 01:19] VITALS: BP 146/90; PULSE 78; RESP 16; TEMP 35.9
[2018-02-02 09:29] VITALS: BP 160/85; PULSE 78; RESP 18; TEMP 36.5
--- NOTE | 2018-02-02 11:08 | PCM.WC.PN ---
(1) Bilateral cellulitis of lower leg Status: Acute Current Visit: No Code(s): L03.116 - Cellulitis of left lower limb; L03.115 - Cellulitis of right lower limb (2) Bilateral edema of lower extremity Status: Acute Current Visit: Yes Code(s): R60.0 - Localized edema (3) Difficulty walking down slope Status: Acute Current Visit: Yes Code(s): R26.2 - Difficulty in walking, not elsewhere classified (4) Infected skin ulcer limited to breakdown of skin Status: Acute Current Visit: No Code(s): L98.491 - Non-pressure chronic ulcer of skin of other sites limited to breakdown of skin (5) Multiple superficial wounds with infection Status: Acute Current Visit: Yes Code(s): T07.XXXA - Unspecified multiple injuries, initial encounter; L08.9 - Local infection of the skin and subcutaneous tissue, unspecified (6) Non-healing non-surgical wound Status: Acute Current Visit: Yes Code(s): T14.8 - Other injury of unspecified body region (7) Peripheral vascular occlusive disease Status: Acute Current Visit: Yes Code(s): I73.9 - Peripheral vascular disease, unspecified (8) Staphylococcus aureus infection Status: Acute Current Visit: No Code(s): A49.01 - Methicillin susceptible Staphylococcus aureus infection, unspecified site Type of Wound Date of Service: 02/02/18 Chief Complaint: Follow-up on nonhealing ulcers of the left lower leg with seepage History of Wound: 82-year-old white female is been here before for the same has extreme peripheral vascular occlusive disease and bilateral lower leg. Patient has been compliant and has been wearing her compression stockings but approximately mid-October with a small breakdown of skin. The daughter who is her policy value calculator states that it just started pouring out of her pores and she literally was dripping all over the floor of the yellow and clear drainage. She has developed a lot of cellulitis since then. Patient has tried to go to her regular doctor but they just increased her Lasix. Progress of Wound: Today the superficial blistering openings of the bilateral lower legs are much improved about half the size they were last week. Continue with Xeroform dressings for healing. 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 Patient is already on Xarelto. Patient had an appointment with Dr. Josue and he wants to follow-up again in 6 months and gave her prescription for new compression stockings. He would like to first get her ulcers healed before he does anything. Her toes are superficial all of her wounds are superficial and filling in nicely - Physical Exam Vital Signs Temp Pulse Resp BP 97.7 F L 78 18 160/85 H 02/02/18 09:29 02/02/18 09:29 02/02/18 09:29 02/02/18 09:29 General: Oriented x3, Cooperative, Well developed HEENT: Atraumatic, PERRLA Oral: Moist Mucosa Neck: Supple, No JVD Lungs: Clear to auscultation, Normal air movement Cardiovascular: Regular rate, Regular Rhythm Abdomen: Bowel Sounds Present, Soft, Non Tender, No Hepato-splenomegaly Extremities: No clubbing, No edema, - - Bilateral lower leg superficial ulcers and right toes Wound Measurements and Assessment WC - Nurse 1 - General Ulcer Measurement Start: 02/02/18 09:13 Freq: Status: Active Protocol: Activity Type Activity Date Activity User E-Sign Co-Sign Detail Recorded Client Recorded Date Recorded By Document 02/02/18 09:29 [id number] 02/02/18 09:50 02/02/18 09:29 Wound Center Nurse 1 [Ulcer Assessment] #13 right azul -Combined with other wound No -Current Size (cm) - Length 0.1 -Current Size (cm) - Width 0.1 -Current Size (cm) - Depth 0.1 -Total Square Cm 0.01 -Photo Taken No -Epithelialization Large 67-100% -Tunneling No -Undermining/Tunneling No -Circular Undermining No #11 L LAT LEG -Combined with other wound No -Current Size (cm) - Length 9.7 -Current Size (cm) - Width 9.4 -Current Size (cm) - Depth 0.1 -Total Square Cm 91.18 -Photo Taken No -Epithelialization Medium 34-66% -Tunneling No -Undermining/Tunneling No -Circular Undermining No -Exudate Amt Medium (34-66%) -Exudate Type Serosanguineous -Wound Margin Distinct, Outline Attached -Granulation Amt Medium (34-66%) -Granulation Quality [place] Red -Necrosis Amt None Present (0 %) -Necrotic Tissue Type Adherent Slough -Texture (Alexandra-wound Skin Appearance) Assessed Friable -Moisture (Alexandra-wound Skin Appearance No Abnormality ) Assessed -Color (Alexandra-wound Skin Appearance) No Abnormality Assessed -Temperature (Alexandra-wound Skin No Abnormality Appearance) (Pt Warm) -Tenderness on Palpation (Alexandra-wound Yes Skin Appearance) -Ulcer Cleansing Wound Cleanser -Foul Odor after Cleansing No -Anesthetic Used 5% Lidocaine Gel #8 R LAT LE -Combined with other wound No -Current Size (cm) - Length 6.3 -Current Size (cm) - Width 5.5 -Current Size (cm) - Depth 0.1 -Total Square Cm 34.65 -Photo Taken No -Epithelialization Small 1-33% -Tunneling No -Undermining/Tunneling No -Circular Undermining No -Exudate Amt Medium (34-66%) -Exudate Type Serosanguineous -Wound Margin Distinct, Outline Attached -Granulation Amt Medium (34-66%) -Granulation Quality [place] Red -Necrosis Amt None Present (0 %) -Necrotic Tissue Type Adherent Slough -Structure Exposed None/Limited to Skin Breakdown -Texture (Alexandra-wound Skin Appearance) Assessed Friable -Moisture (Alexandra-wound Skin Appearance No Abnormality ) Assessed -Color (Alexandra-wound Skin Appearance) No Abnormality Assessed -Temperature (Alexandra-wound Skin No Abnormality Appearance) (Pt Warm) -Tenderness on Palpation (Alexandra-wound Yes Skin Appearance) -Ulcer Cleansing Wound Cleanser -Foul Odor after Cleansing No -Anesthetic Used 5% Lidocaine Gel #7 R SEC TOE -Combined with other wound No -Current Size (cm) - Length 0.7 -Current Size (cm) - Width 1.9 -Current Size (cm) - Depth 0.1 -Total Square Cm 1.33 -Photo Taken No -Epithelialization None Present -Tunneling No -Undermining/Tunneling No -Circular Undermining No -Exudate Amt Medium (34-66%) -Exudate Type Serosanguineous -Wound Margin Distinct, Outline Attached -Granulation Amt Small (1-33%) -Granulation Quality [place] Red -Slough/Fibrin Yes -Necrosis Amt None Present (0 %) -Necrotic Tissue Type Adherent Slough -Structure Exposed None/Limited to Skin Breakdown -Texture (Alexandra-wound Skin Appearance) Assessed -Moisture (Alexandra-wound Skin Appearance Assessed ) Maceration -Color (Alexandra-wound Skin Appearance) Assessed -Temperature (Alexandra-wound Skin No Abnormality Appearance) (Pt Warm) -Tenderness on Palpation (Alexandra-wound Yes Skin Appearance) -Ulcer Cleansing Wound Cleanser -Foul Odor after Cleansing No -Anesthetic Used 5% Lidocaine Gel #6 R GRT TOE -Combined with other wound No -Current Size (cm) - Length 0.9 -Current Size (cm) - Width 1.7 -Current Size (cm) - Depth 0.1 -Total Square Cm 1.53 -Photo Taken No -Tunneling No -Undermining/Tunneling No -Exudate Amt Small (1-33%) -Exudate Type Serosanguineous -Wound Margin Distinct, Outline Attached -Temperature (Alexandra-wound Skin No Abnormality Appearance) (Pt Warm) -Tenderness on Palpation (Alexandra-wound Yes Skin Appearance) -Ulcer Cleansing Wound Cleanser -Foul Odor after Cleansing No -Anesthetic Used 5% Lidocaine Gel [Edema Assessment] -Lower Limb Edema Present Yes -Right Calf (cm) 45.5 -Right Ankle (cm) 27.6 -Left Calf (cm) 40.1 -Left Ankle (cm) 26.0 WC - Nurse 2 - General Ulcer CM Notes Start: 02/02/18 09:13 Freq: Status: Active Protocol: Activity Type Activity Date Activity User E-Sign Co-Sign Detail Recorded Client Recorded Date Recorded By Document 02/02/18 10:07 MW [id number] 02/02/18 10:15 MW 02/02/18 10:07 Wound Center Nurse 2 [Procedure/Treatment] #13 right azul -Time 10:11 -Correct Patient Yes -Correct Side, Site, Position Yes -Correct Procedure Yes -Procedure Performed No -Post Debridement Size (cm) - Length 0 -Post Debridement Size (cm) - Width 0 -Post Debridement Size (cm) - Depth 0 -Total Square Cm 0 -Wound/Ulcer Outcome Healed- Epithelialized -Ulcer Cleansing Not Cleansed -Foul Odor after Cleansing No -Bioengineered Tissue No -Bleeding Controlled with NA -Treatment Response Procedure Tolerated Well #11 L LAT LEG -Time 10:12 -Correct Patient Yes -Correct Side, Site, Position Yes -Correct Procedure Yes -Procedure Performed Yes -Type of Procedure Debridement -Clinical Debridement Subcutaneous -Post Debridement Size (cm) - Length 10.5 -Post Debridement Size (cm) - Width 7.0 -Post Debridement Size (cm) - Depth 0.1 -Total Square Cm 73.50 -Wound/Ulcer Outcome Not Healed -Ulcer Cleansing Rinsed/ Irrigated with Saline -Foul Odor after Cleansing No -Bioengineered Tissue No -Bleeding Controlled with Pressure -Treatment Response Procedure Tolerated Well #8 R LAT LE -Time 10:13 -Correct Patient Yes -Correct Side, Site, Position Yes -Correct Procedure Yes -Procedure Performed Yes -Type of Procedure Debridement -Clinical Debridement Subcutaneous -Post Debridement Size (cm) - Length 6.0 -Post Debridement Size (cm) - Width 5.8 -Post Debridement Size (cm) - Depth 0.1 -Total Square Cm 34.80 -Wound/Ulcer Outcome Not Healed -Ulcer Cleansing Rinsed/ Irrigated with Saline -Foul Odor after Cleansing No -Bioengineered Tissue No -Bleeding Controlled with Pressure -Treatment Response Procedure Tolerated Well #7 R SEC TOE -Time 10:13 -Correct Patient Yes -Correct Side, Site, Position Yes -Correct Procedure Yes -Procedure Performed Yes -Type of Procedure Debridement -Clinical Debridement Subcutaneous -Post Debridement Size (cm) - Length 0.9 -Post Debridement Size (cm) - Width 1.2 -Post Debridement Size (cm) - Depth 0.1 -Total Square Cm 1.08 -Wound/Ulcer Outcome Not Healed -Ulcer Cleansing Rinsed/ Irrigated with Saline -Foul Odor after Cleansing No -Bioengineered Tissue No -Bleeding Controlled with Pressure -Treatment Response Procedure Tolerated Well #6 R GRT TOE -Time 10:13 -Correct Patient Yes -Correct Side, Site, Position Yes -Correct Procedure Yes -Procedure Performed Yes -Type of Procedure Debridement -Clinical Debridement Subcutaneous -Post Debridement Size (cm) - Length 0.8 -Post Debridement Size (cm) - Width 0.5 -Post Debridement Size (cm) - Depth 0.1 -Total Square Cm 0.40 -Wound/Ulcer Outcome Not Healed -Ulcer Cleansing Rinsed/ Irrigated with Saline -Foul Odor after Cleansing No -Bioengineered Tissue No -Bleeding Controlled with Pressure -Treatment Response Procedure Tolerated Well [See Physician Procedure note for Specifics] Pain Scale: 0-10 Numeric [Pain] -Is Patient Pain Free? Yes Musculoskeletal: No Tenderness to Palpation of Joints or Extremities Lymphatic: No Cervical, Supraclavicular, or Inguinal Adenopathy Neurological: Cranial nerves II-XII grossly intact, Neuro grossly intact Psych/Mental Status: Normal Affect, Appropriate Debridement Note Post-Debridement Measurements/Treatment WC - Nurse 2 - General Ulcer CM Notes Start: 02/02/18 09:13 Freq: Status: Active Protocol: Activity Type Activity Date Activity User E-Sign Co-Sign Detail Recorded Client Recorded Date Recorded By Document 02/02/18 10:07 MW [id number] 02/02/18 10:15 MW 02/02/18 10:07 Wound Center Nurse 2 #13 right azul -Time 10:11 -Correct Patient Yes -Correct Side, Site, Position Yes -Correct Procedure Yes -Procedure Performed No -Post Debridement Size (cm) - Length 0 -Post Debridement Size (cm) - Width 0 -Post Debridement Size (cm) - Depth 0 -Total Square Cm 0 -Wound/Ulcer Outcome Healed- Epithelialized -Ulcer Cleansing Not Cleansed -Foul Odor after Cleansing No -Bioengineered Tissue No -Bleeding Controlled with NA -Treatment Response Procedure Tolerated Well #11 L LAT LEG -Time 10:12 -Correct Patient Yes -Correct Side, Site, Position Yes -Correct Procedure Yes -Procedure Performed Yes -Type of Procedure Debridement -Clinical Debridement Subcutaneous -Post Debridement Size (cm) - Length 10.5 -Post Debridement Size (cm) - Width 7.0 -Post Debridement Size (cm) - Depth 0.1 -Total Square Cm 73.50 -Wound/Ulcer Outcome Not Healed -Ulcer Cleansing Rinsed/ Irrigated with Saline -Foul Odor after Cleansing No -Bioengineered Tissue No -Bleeding Controlled with Pressure -Treatment Response Procedure Tolerated Well #8 R LAT LE -Time 10:13 -Correct Patient Yes -Correct Side, Site, Position Yes -Correct Procedure Yes -Procedure Performed Yes -Type of Procedure Debridement -Clinical Debridement Subcutaneous -Post Debridement Size (cm) - Length 6.0 -Post Debridement Size (cm) - Width 5.8 -Post Debridement Size (cm) - Depth 0.1 -Total Square Cm 34.80 -Wound/Ulcer Outcome Not Healed -Ulcer Cleansing Rinsed/ Irrigated with Saline -Foul Odor after Cleansing No -Bioengineered Tissue No -Bleeding Controlled with Pressure -Treatment Response Procedure Tolerated Well #7 R SEC TOE -Time 10:13 -Correct Patient Yes -Correct Side, Site, Position Yes -Correct Procedure Yes -Procedure Performed Yes -Type of Procedure Debridement -Clinical Debridement Subcutaneous -Post Debridement Size (cm) - Length 0.9 -Post Debridement Size (cm) - Width 1.2 -Post Debridement Size (cm) - Depth 0.1 -Total Square Cm 1.08 -Wound/Ulcer Outcome Not Healed -Ulcer Cleansing Rinsed/ Irrigated with Saline -Foul Odor after Cleansing No -Bioengineered Tissue No -Bleeding Controlled with Pressure -Treatment Response Procedure Tolerated Well #6 R GRT TOE -Time 10:13 -Correct Patient Yes -Correct Side, Site, Position Yes -Correct Procedure Yes -Procedure Performed Yes -Type of Procedure Debridement -Clinical Debridement Subcutaneous -Post Debridement Size (cm) - Length 0.8 -Post Debridement Size (cm) - Width 0.5 -Post Debridement Size (cm) - Depth 0.1 -Total Square Cm 0.40 -Wound/Ulcer Outcome Not Healed -Ulcer Cleansing Rinsed/ Irrigated with Saline -Foul Odor after Cleansing No -Bioengineered Tissue No -Bleeding Controlled with Pressure -Treatment Response Procedure Tolerated Well Pain Scale: 0-10 Numeric Is Patient Pain Free? Yes Wound debrided: Lateral lower leg ulcers cluster Type of Debridement: Excisional debridement Anesthesia Used: 5% Lidocaine Gel Depth: Down to and including healthy tissue Percentage of wound debrided: 100 Instrument Used: 7mm curette Tissue Removed: Fibrin Severity: Limited To Skin Breakdown Amount of bleeding with debridement: None Bleeding Controlled with: Pressure Patient tolerated procedure well - Additional Wound Wound debrided: Right lateral lower leg cluster Type of Debridement: Excisional debridement Anesthesia Used: 5% Lidocaine Gel Depth: Down to and including healthy tissue Percentage of wound debrided: 100 Instrument Used: 7mm curette Tissue Removed: Fibrin Severity: Limited To Skin Breakdown Amount of bleeding with debridement: None Bleeding Controlled with: Pressure - Additional Wound Wound debrided: Dorsal right great toe Type of Debridement: Excisional debridement Anesthesia Used: 5% Lidocaine Gel Depth: Down to and including healthy tissue Percentage of wound debrided: 100 Instrument Used: 5mm curette Tissue Removed: Fibrin Severity: Limited To Skin Breakdown Amount of bleeding with debridement: None Bleeding Controlled with: Pressure Patient tolerated procedure: Patient tolerated procedure well - Additional Wound Wound debrided: Dorsal right second toe Type of Debridement: Excisional debridement Anesthesia Used: 5% Lidocaine Gel Depth: Down to and including healthy tissue Percentage of wound debrided: 100 Instrument Used: 5mm curette Tissue Removed: Fibrin Severity: Limited To Skin Breakdown Amount of bleeding with debridement: None Bleeding Controlled with: Pressure Patient tolerated procedure: Patient tolerated procedure well Assessment/Plan Active Problems Multiple superficial wounds with infection (Acute) Peripheral vascular occlusive disease (Acute) Non-healing non-surgical wound (Acute) Bilateral edema of lower extremity (Acute) Difficulty walking down slope (Acute) Assessment: Cellulitis bilateral lower legs. Edema bilateral lower legs. Bilateral lower leg ulcers and and lateral. Morbid obesity. Pacemaker. Left azul ulcer resolved. Peripheral vascular occlusive disease. Renal insufficiency Plan: Wash the legs with Hibiclens. Apply Xeroform dressings to open areas. Cover with ABDs and Liusa. Apply gauze between toes. Continue to compress with Hernandez wraps. Follow-up one week
[2018-02-02 13:06] LABS: Absolute Lymphocyte Count 1.58 X10^3/ul (0.83-4.51); Basophil# 0.02 X10^3/uL; Basophil% 0.3 % (0-1); Eosinophil# 0.27 X10^3/uL; Eosinophils% 4.3 % (0-5); Hematocrit 37.8 % (37-47); Lymphocyte # 1.58 X10^3/ul (4.0); Mean Corp Hgb Conc 29.1 g/gl (32-36); Mean Corpuscular Hgb 21.9 pg (27.0-32.0); Mean Corpuscular Volume 75.1 fL (81-99); Mean Platelet Vol. 8.9 fl (6.2-12.0); Monocyte# 0.44 X10^3/uL; Neutrophil # 4.01 X10^3/uL (2.7-7.7); Neutrophil % 63.4 % (47-70); Platelet Count 332 K/mm3 (150-450); RBC Distribution Width CV 22.3 % (11.6-14.6); RBC Distribution Width SD 60.3 fl (35.1-43.9); Red Blood Count 5.03 M/mm3 (4.2-5.4); White Blood Count 6.3 K/mm3 (4.4-11.0)
[2018-02-02 13:09] LABS: Differential Indicated SCAN CRITERIA MET; POSITIVE COUNT NO; POSITIVE DIFFERENTIAL NO; POSITIVE MORPHOLOGY YES
[2018-02-02 13:28] LABS: Anisocytosis 1+; Microcytosis 1+
[2018-02-02 13:43] LABS: Vitamin B12 429 pg/mL (211-911)
[2018-02-02 13:44] LABS: ALB/GLOB Ratio 0.7 RATIO (0.9-2.4); AST(SGOT) 17 U/L (15-37); Alanine Aminotransfer ALT/SGPT 12 U/L (13-56); Albumin, Serum 3.2 g/dL (3.2-5.0); Alkaline Phosphatase 111 U/L (45-117); Anion Gap 4 (5-15); BUN 18 mg/dL (7-18); BUN/Creat Ratio 22.8 RATIO (10-20); Chloride 104 mmol/L (98-107); Creatinine, Serum 0.79 mg/dL (0.55-1.02); EST Glomerular Filtration Rate 74 mL/min (>60); Est Glom Filt Rate - Afr Amer 89 mL/min (>60); Globulin 4.8 g/dL (2.2-4.2); Glucose 90 mg/dL (74-106); Potassium 3.7 mmol/L (3.5-5.1); Prealbumin 12.2 mg/dL (20.0-40.0); Sodium Level 141 mmol/L (136-145)
== END 2018-03-02 23:59 ==
LOC: WC 08:59
PROVIDERS: Family Provider Family Medicine; PCP Family Medicine; Visit Provider Nurse Practitioner
DX: I73.9 Peripheral vascular disease, unspecified (principal); Z86.14 Personal history of Methicillin resistant Staphylococcus aureus infection; R60.0 Localized edema; L97.811 Non-pressure chronic ulcer of other part of right lower leg limited to breakdown of skin; L97.511 Non-pressure chronic ulcer of other part of right foot limited to breakdown of skin; Z86.718 Personal history of other venous thrombosis and embolism; Z95.0 Presence of cardiac pacemaker
CPT/HCPCS: 11042; 11045; 80053; 82607; 84134; 85025

== ENCOUNTER 2018-02-09 10:51 | Observation (INO) | payer MEDICARE, MEDICAID, SELFPAY ==
[2018-02-09 10:53] VITALS: BP 171/92; PULSE 85; RESP 20; TEMP 37.6; O2SAT 92; BMI 43.7
--- NOTE | 2018-02-09 11:22 | ED.DCSUM_ITS ---
- ER Visit Summary Date of Service: 02/09/18 Chief Complaint: Bilateral lower extremity cellulitis History of Present Illness: The patient is a 82 F who has cellulitis of her bilateral lower extremities. She has a history of chronic leg wounds and goes to the wound center for these. Yesterday she went to [facility] and had laboratory studies and was diagnosed with a cellulitis. They recommended admission of the hospital but her and the family did not want to stay. They did IV clindamycin and sent her home with oral clindamycin. She is not getting any better. Daughter noticed that the redness has been extending up the right leg to just past the knee. She denies any fevers. Physical Examination: Vital signs reviewed. HEENT exam unremarkable. Heart is regular rate and rhythm without murmurs. Lungs are clear to auscultation. Abdomen is soft and nontender. Extremities reveal the chronic edema. There is some erythema extending above the knee on the right leg and also some erythema on the left leg as well. There are also chronic wounds that are noted. Neurologic exam is at baseline for this patient. Test Results: Labs unremarkable except for hemoglobin of 11 Emergency Department Course and Treatment: He does appear to have some cellulitis. I will put in for IV clindamycin. Patient will be discussed with the hospitalist for admission Treatment Plan: [] Disposition: Admit Impression: Lower extremity cellulitis Addendum: After the patient was evaluated by the hospitalist, he was not entirely convinced that this was due to cellulitis. He will admit the patient under observation status. He will change the IV antibiotics to oral antibiotics. This note was generated with [employer] dictation software. It may contain incorrect words, spelling, and punctuation that were not noted in review of the chart prior to signing ED Disposition - Plan for ED Patient: Chief Complaint: Cellulitis Referrals: Daquan Tenorio MD [Primary Care Provider] -
[2018-02-09] MEDS: Acetaminophen 325 MG Tablet 650 MG PO (11:28)
[2018-02-09 12:12] LABS: Absolute Lymphocyte Count 1.61 X10^3/ul (0.83-4.51); Absolute Neutrophil Count 7.4 X10^3/uL (2.0-7.7); Basophil# 0.02 X10^3/uL; Basophil% 0.2 % (0-1); Differential Indicated SCAN CRITERIA MET; Eosinophil# 0.02 X10^3/uL; Eosinophils% 0.2 % (0-5); Hematocrit 35.8 % (37-47); Lymphocyte # 1.61 X10^3/ul (4.0); Lymphocyte % 15.7 % (19-41); Mean Corp Hgb Conc 30.7 g/gl (32-36); Mean Corpuscular Hgb 22.5 pg (27.0-32.0); Mean Corpuscular Volume 73.2 fL (81-99); Mean Platelet Vol. 8.7 fl (6.2-12.0); Monocyte# 1.13 X10^3/uL; Neutrophil # 7.44 X10^3/uL (2.7-7.7); Neutrophil % 72.7 % (47-70); POSITIVE COUNT NO; POSITIVE DIFFERENTIAL NO; POSITIVE MORPHOLOGY YES; Platelet Count 321 K/mm3 (150-450); RBC Distribution Width CV 22.6 % (11.6-14.6); RBC Distribution Width SD 58.1 fl (35.1-43.9); Red Blood Count 4.89 M/mm3 (4.2-5.4); White Blood Count 10.2 K/mm3 (4.4-11.0)
[2018-02-09 12:20] LABS: Anion Gap 9 (5-15); BUN 20 mg/dL (7-18); BUN/Creat Ratio 20.9 RATIO (10-20); Calcium,Total 8.8 mg/dL (8.5-10.1); Chloride 100 mmol/L (98-107); Creatinine, Serum 0.96 mg/dL (0.55-1.02); EST Glomerular Filtration Rate 59 mL/min (>60); Est Glom Filt Rate - Afr Amer 72 mL/min (>60); Estimated Creatinine Clearance 31.89 ml/min; Glucose 97 mg/dL (74-106); Potassium 3.7 mmol/L (3.5-5.1); Sodium Level 138 mmol/L (136-145)
[2018-02-09 12:33] LABS: Lactic Acid 1.8 mmol/L (0.4-2.0)
[2018-02-09 13:03] VITALS: TEMP 37.1
--- NOTE | 2018-02-09 13:57 | CM.ED ---
CM INITIAL ASSESSMENT: Home: Patient lives in a two story home with first floor setup. She resides with her daughter, Michelle, who is also medical POA. Michelle states there is a ramp into the home. HHS/Aides: Denies having past or present HHS. Patient and daughter both express interest in home health therapy upon discharge. They deny any preference of agency. The patient has never been in a SNF. DME: Patient uses a wheelchair, but also has a walker. She states she's been unable to use the walker recently. She has grab bars, a 4 step into shower, shower bench, and high toilet. Patient and daughter deny further DME needs at this time. Home Oxygen: Denies. Pharmacy: [facility] in [place] Advance Directives: Yes, patient states that her daughter, Michelle Velásquez, is medical POA. Michelle states she knows these files are not in patient's EHR and will bring them in for scanning. PCP: Daquan Tenorio DC Plan: TBD. Patient would like to return home upon discharge. Patient and caregiver expressed interest in setting up home health therapy services. CM will continue to follow for safe and effective discharge planning.
--- NOTE | 2018-02-09 14:07 | PCM.HP.STD ---
Problem List (1) Cellulitis, leg Status: Acute Qualifiers: Laterality: right Qualified Code(s): L03.115 - Cellulitis of right lower limb History of Present Illness Date of Admission: 02/09/18 Chief Complaint: leg redness. The patient is a 82 year old F resents with increasing redness of her lower extremities. Patient has had chronic lower extremity but the daughter, who does patient's wraps, has noticed that they have been more red. [facility] emergency room and received clindamycin. Patient was noticing the redness and some red spots on her anterior legs just above the knees. About 100 Fahrenheit last night. Patient is treated with the Bactrim about 2 weeks ago for 1 of her chronic venous stasis wounds was positive for bacteria. [] Past Medical History Past Medical History (Chronic Problems): Chronic Problems Peripheral vascular occlusive disease (Chronic) Pain in both lower legs (Chronic) Morbid obesity with BMI of 50.0-59.9, adult (Chronic) Pacemaker (Chronic) Medical History: Medical History (Last Updated 02/09/18 @ 14:09 by Grant Regalado DO) Afib I48.91 PAD (peripheral artery disease) I73.9 Allergies ceftriaxone [From Rocephin] Allergy (Verified 02/09/18 10:53) Unknown levofloxacin [From Levaquin] Allergy (Verified 02/09/18 10:53) Unknown rosuvastatin calcium [From Crestor] Adverse Reaction (Verified 02/09/18 10:53) Other muscle aches Home Medications: Ambulatory Orders Medication Instructions Recorded Beta-Glucan, (1-3) (1-4) [Beta 10 mg MC DAILY 03/17/14 Glucan] Catalex F 2 tab PO DAILY 03/17/14 Cataplex B 3 tab PO DAILY 03/17/14 Cod Liver Oil 500 ml PO DAILY 03/17/14 Furosemide 40 mg PO DAILY 03/17/14 Levothyroxine [Synthroid] 75 mcg PO DAILY 03/17/14 Rivaroxaban [Xarelto] 20 mg PO DAILY 03/17/14 Calcium Lactate 252 mg PO BID 08/26/16 Magnesium Oxide [Magnesium] 400 mg PO DAILY 08/26/16 Potassium Chloride [K-Dur] 20 meq PO DAILY 08/26/16 Ubidecarenone [Coq10] 100 mg PO DAILY 08/26/16 Vitamin E 1,000 unit PO DAILY 08/26/16 Metoprolol Succinate [Toprol Xl] 25 mg PO DAILY 01/05/18 Quinapril HCl [Accupril] 20 mg PO DAILY PRN 01/05/18 Surgical History: pacemaker implantation, - Lives: Spouse/ Significant Other Smoking Status: Never smoker Tobacco Use: Non-smoker Alcohol: None Drugs: None - *Family History Maternal History Items: Heart Disease Paternal History Items: Heart Disease, Stroke Sibling History Items: Heart Disease, - - Kidney disease Review of Systems Constitutional: Denies: Chills, Fever, Weight Change Eyes: Denies: Blurred vision, Double vision HEENT: Denies: Head Aches, Sinus Congestion, Sinus Drainage Cardiovascular: Reports: Edema. Denies: Chest Pain, Palpitations Respiratory: Reports: Cough. Denies: Shortness of Breath Gastrointestinal: Denies: Abdominal Pain, Nausea, Vomiting Genitourinary: Denies: Dysuria Musculoskeletal: Reports: - - Had diffuse myalgias earlier this morning Skin: Reports: - - Really worse than the left. As venous stasis ulcers Neurological: Denies: Numbness, Tingling, Focal weakness Psychiatric: Denies: Anxiety, Depression Hematologic/ Lymphatic: Denies: Easy Bruising, Easy Bleeding, Hx of blood clot Comment: All review of systems are negative except as mentioned in the history of present illness and the other review of systems. VTE Information - Inpt Only VTE Present on Admission: No VTE Mechan Device Prophylaxis: None VTE Pharm Prophylaxis ordered?: Yes Patient Problems: Active and Suspected Problems Cellulitis, leg (Acute) - Physical Exam General: Alert, Cooperative, No apparent distress, - - Up in chair. Cantankerous. Afebrile. Nontoxic. HEENT: Atraumatic, Normocephalic Oral: Moist Mucosa, No Gingival or Mucosal Lesions/ Ulcerations Neck: No Nodes, Thyroid Normal Size and Texture Lungs: Clear to auscultation, Normal air movement, No rhonchi, No wheeze Cardiovascular: Regular rate, Regular Rhythm, Normal S1, Normal S2, No murmurs Abdomen: Bowel Sounds Present, Soft, Non Tender, Non-Distended, No Hepato-splenomegaly Extremities: No Calf Tenderness, Edema Skin: - - Her extremities. Patient does have some faint erythema extending medially up till just above the knee with some reddish macule regions on the right but also on the left. Musculoskeletal: No Tenderness to Palpation of Joints or Extremities, No Muscle Wasting Neurological: Neuro grossly intact, Muscle tone normal Psych/Mental Status: Appropriate, Flat Affect Vital Signs Temp Pulse Resp BP Pulse Ox 37.1 C 85 20 H 171/92 H 92 02/09/18 13:03 02/09/18 10:53 02/09/18 10:53 02/09/18 10:53 02/09/18 10:53 Oxygen Delivery Method Room Air Weight: 101.605 kg Body Mass Index (BMI) 43.7 Laboratory Tests Past 24 Hrs 02/09/18 02/09/18 02/09/18 11:50 11:50 11:50 WBC 10.2 RBC 4.89 Hgb 11.0 L Hct 35.8 L MCV 73.2 L MCH 22.5 L MCHC 30.7 L RDW 22.6 H RDW Differential 58.1 H Plt Count 321 MPV 8.7 Immature Gran % (Auto) 0.200 Neut % (Auto) 72.7 H Lymph % (Auto) 15.7 L Coke % (Auto) 11.0 H Eos % (Auto) 0.2 Baso % (Auto) 0.2 Absolute Neuts (auto) 7.4 Absolute Lymphs (auto) 1.61 Total Counted Not Reportable Differential Comment Sodium 138 Potassium 3.7 Chloride 100 Carbon Dioxide 29.0 Anion Gap 9 BUN 20 H Creatinine 0.96 Estim Creat Clear Calc 31.89 Est GFR (MDRD) Af Amer 72 Est GFR (MDRD) Non-Af 59 L BUN/Creatinine Ratio 20.9 H Glucose 97 Lactic Acid 1.8 Calcium 8.8 Assessment/Plan All Active Problems Ulcer of left lower leg (Acute) Multiple superficial wounds with infection (Acute) Staphylococcus aureus infection (Acute) Peripheral vascular occlusive disease (Acute) Ulcer of right lower leg (Acute) Cellulitis, leg (Acute) Non-healing non-surgical wound (Acute) Bilateral cellulitis of lower leg (Acute) Infected skin ulcer limited to breakdown of skin (Acute) Bilateral edema of lower extremity (Acute) Difficulty walking down slope (Acute) 1. Lower extremity cellulitis This diagnosis is really not to be venous stasis changes but given some of the patient's subjective complaints prior to arrival we will treat her empirically for cellulitis. As per the emergency room physician to admit the patient for bilateral lower extremity cellulitis with feel the patient has not if anything would be more right-sided. Patient is not septic and I do not feel that she requires IV antibiotics were taken the liberty of discontinuing the IV clindamycin at the emergency room physician had ordered I will change patient's oral Levaquin over to amoxicillin and Bactrim. She has a cephalosporin allergy The patient gets worse then patient on IV antibiotics but if the patient does better, I feel that she can go home with the amoxicillin and Bactrim Complicating this is patient's chronic venous stasis as well as venous stasis ulcers Patient is unaware of any diagnosis of heart failure but is on Lasix I will increase her Lasix to twice daily from once daily 2. DVT prophylaxis patient is anticoagulated on Xarelto. Case discussed at length with the patient's daughter at bedside. They are where the patient is being brought in under observation status and will biotics at least at this point in time. If patient does well and the plan is for the patient to go home on the . Patient advised to follow-up with a general hand former. Patient is only been following up with an cherry dipper. I feel the patient has some underlying heart failure with whether preserved or reduced ejection fraction is unclear as we do not have any records. Code Visit OBSV E&M: 18875 Initial observation care L3
--- NOTE | 2018-02-09 14:11 | HP.PCM_ITS ---
Problem List (1) Cellulitis, leg Status: Acute Qualifiers: Laterality: right Qualified Code(s): L03.115 - Cellulitis of right lower limb History of Present Illness Date of Admission: 02/09/18 Chief Complaint: leg redness. The patient is a 82 year old F resents with increasing redness of her lower extremities. Patient has had chronic lower extremity but the daughter, who does patient's wraps, has noticed that they have been more red. On License Of [facility] emergency room and received clindamycin. Patient was noticing the redness and some red spots on her anterior legs just above the knees. About 100 Fahrenheit last night. Patient is treated with the Bactrim about 2 weeks ago for 1 of her chronic venous stasis wounds was positive for bacteria. [] Past Medical History Past Medical History (Chronic Problems): Chronic Problems Peripheral vascular occlusive disease (Chronic) Pain in both lower legs (Chronic) Morbid obesity with BMI of 50.0-59.9, adult (Chronic) Pacemaker (Chronic) Medical History: Medical History (Last Updated 02/09/18 @ 14:09 by Grant Regalado DO) Afib I48.91 PAD (peripheral artery disease) I73.9 Allergies ceftriaxone [From Rocephin] Allergy (Verified 02/09/18 10:53) Unknown levofloxacin [From Levaquin] Allergy (Verified 02/09/18 10:53) Unknown rosuvastatin calcium [From Crestor] Adverse Reaction (Verified 02/09/18 10:53) Other muscle aches Home Medications: Ambulatory Orders Medication Instructions Recorded Beta-Glucan, (1-3) (1-4) [Beta 10 mg MC DAILY 03/17/14 Glucan] Catalex F 2 tab PO DAILY 03/17/14 Cataplex B 3 tab PO DAILY 03/17/14 Cod Liver Oil 500 ml PO DAILY 03/17/14 Furosemide 40 mg PO DAILY 03/17/14 Levothyroxine [Synthroid] 75 mcg PO DAILY 03/17/14 Rivaroxaban [Xarelto] 20 mg PO DAILY 03/17/14 Calcium Lactate 252 mg PO BID 08/26/16 Magnesium Oxide [Magnesium] 400 mg PO DAILY 08/26/16 Potassium Chloride [K-Dur] 20 meq PO DAILY 08/26/16 Ubidecarenone [Coq10] 100 mg PO DAILY 08/26/16 Vitamin E 1,000 unit PO DAILY 08/26/16 Metoprolol Succinate [Toprol Xl] 25 mg PO DAILY 01/05/18 Quinapril HCl [Accupril] 20 mg PO DAILY PRN 01/05/18 Surgical History: pacemaker implantation, - Lives: Spouse/ Significant Other Smoking Status: Never smoker Tobacco Use: Non-smoker Alcohol: None Drugs: None - *Family History Maternal History Items: Heart Disease Paternal History Items: Heart Disease, Stroke Sibling History Items: Heart Disease, - - Kidney disease Review of Systems Constitutional: Denies: Chills, Fever, Weight Change Eyes: Denies: Blurred vision, Double vision HEENT: Denies: Head Aches, Sinus Congestion, Sinus Drainage Cardiovascular: Reports: Edema. Denies: Chest Pain, Palpitations Respiratory: Reports: Cough. Denies: Shortness of Breath Gastrointestinal: Denies: Abdominal Pain, Nausea, Vomiting Genitourinary: Denies: Dysuria Musculoskeletal: Reports: - - Had diffuse myalgias earlier this morning Skin: Reports: - - Really worse than the left. As venous stasis ulcers Neurological: Denies: Numbness, Tingling, Focal weakness Psychiatric: Denies: Anxiety, Depression Hematologic/ Lymphatic: Denies: Easy Bruising, Easy Bleeding, Hx of blood clot Comment: All review of systems are negative except as mentioned in the history of present illness and the other review of systems. VTE Information - Inpt Only VTE Present on Admission: No VTE Mechan Device Prophylaxis: None VTE Pharm Prophylaxis ordered?: Yes Patient Problems: Active and Suspected Problems Cellulitis, leg (Acute) - Physical Exam General: Alert, Cooperative, No apparent distress, - - Up in chair. Cantankerous. Afebrile. Nontoxic. HEENT: Atraumatic, Normocephalic Oral: Moist Mucosa, No Gingival or Mucosal Lesions/ Ulcerations Neck: No Nodes, Thyroid Normal Size and Texture Lungs: Clear to auscultation, Normal air movement, No rhonchi, No wheeze Cardiovascular: Regular rate, Regular Rhythm, Normal S1, Normal S2, No murmurs Abdomen: Bowel Sounds Present, Soft, Non Tender, Non-Distended, No Hepato- splenomegaly Extremities: No Calf Tenderness, Edema Skin: - - Her extremities. Patient does have some faint erythema extending medially up till just above the knee with some reddish macule regions on the right but also on the left. Musculoskeletal: No Tenderness to Palpation of Joints or Extremities, No Muscle Wasting Neurological: Neuro grossly intact, Muscle tone normal Psych/Mental Status: Appropriate, Flat Affect Vital Signs Temp Pulse Resp BP Pulse Ox 37.1 C 85 20 H 171/92 H 92 02/09/18 13:03 02/09/18 10:53 02/09/18 10:53 02/09/18 10:53 02/09/18 10:53 Oxygen Delivery Method Room Air Weight: 101.605 kg Body Mass Index (BMI) 43.7 Laboratory Tests Past 24 Hrs 02/09/18 02/09/18 02/09/18 11:50 11:50 11:50 WBC 10.2 RBC 4.89 Hgb 11.0 L Hct 35.8 L MCV 73.2 L MCH 22.5 L MCHC 30.7 L RDW 22.6 H RDW Differential 58.1 H Plt Count 321 MPV 8.7 Immature Gran % (Auto) 0.200 Neut % (Auto) 72.7 H Lymph % (Auto) 15.7 L Gilmer % (Auto) 11.0 H Eos % (Auto) 0.2 Baso % (Auto) 0.2 Absolute Neuts (auto) 7.4 Absolute Lymphs (auto) 1.61 Total Counted Not Reportable Differential Comment Sodium 138 Potassium 3.7 Chloride 100 Carbon Dioxide 29.0 Anion Gap 9 BUN 20 H Creatinine 0.96 Estim Creat Clear Calc 31.89 Est GFR (MDRD) Af Amer 72 Est GFR (MDRD) Non-Af 59 L BUN/Creatinine Ratio 20.9 H Glucose 97 Lactic Acid 1.8 Calcium 8.8 Assessment/Plan All Active Problems Ulcer of left lower leg (Acute) Multiple superficial wounds with infection (Acute) Staphylococcus aureus infection (Acute) Peripheral vascular occlusive disease (Acute) Ulcer of right lower leg (Acute) Cellulitis, leg (Acute) Non-healing non-surgical wound (Acute) Bilateral cellulitis of lower leg (Acute) Infected skin ulcer limited to breakdown of skin (Acute) Bilateral edema of lower extremity (Acute) Difficulty walking down slope (Acute) 1. Lower extremity cellulitis * This diagnosis is really not to be venous stasis changes but given some of the patient's subjective complaints prior to arrival we will treat her empirically for cellulitis. As per the emergency room physician to admit the patient for bilateral lower extremity cellulitis with feel the patient has not if anything would be more right-sided. Patient is not septic and I do not feel that she requires IV antibiotics were taken the liberty of discontinuing the IV clindamycin at the emergency room physician had ordered * I will change patient's oral Levaquin over to amoxicillin and Bactrim. She has a cephalosporin allergy * The patient gets worse then patient on IV antibiotics but if the patient does better, I feel that she can go home with the amoxicillin and Bactrim * Complicating this is patient's chronic venous stasis as well as venous stasis ulcers * Patient is unaware of any diagnosis of heart failure but is on Lasix * I will increase her Lasix to twice daily from once daily 2. DVT prophylaxis patient is anticoagulated on Xarelto. Case discussed at length with the patient's daughter at bedside. They are where the patient is being brought in under observation status and will biotics at least at this point in time. If patient does well and the plan is for the patient to go home on the . Patient advised to follow-up with a general basketball assembler. Patient is only been following up with an bed setter. I feel the patient has some underlying heart failure with whether preserved or reduced ejection fraction is unclear as we do not have any records. Code Visit OBSV E&M: 27606 Initial observation care L3
[2018-02-09 14:37] VITALS: BP 179/71; PULSE 73; RESP 14; O2SAT 96
[2018-02-09 15:03] VITALS: BMI 45.3; BMI 45.4
[2018-02-09 16:27] VITALS: BP 177/81; PULSE 77; RESP 18; TEMP 36.7; O2SAT 93
[2018-02-09] MEDS: Rivaroxaban 20 MG Tablet PO (18:31)
[2018-02-09] MEDS: Calcium Carbonate 500 MG Tablet PO (18:32)
[2018-02-09] MEDS: Smz/Tmp Ds Tablet 1 TABLET PO (18:32)
[2018-02-09] MEDS: Furosemide 40 MG Tablet PO (18:33)
[2018-02-09] MEDS: AMOXICILLIN 500 MG CAPSULE PO ×2 (18:33→21:42)
[2018-02-09 18:34] VITALS: BP 177/81; PULSE 77
[2018-02-09] MEDS: Metoprolol(XL)Succ 50 MG Tablet PO (18:34)
[2018-02-09 20:30] VITALS: BP 139/67; PULSE 70; RESP 18; TEMP 36.9; O2SAT 95
[2018-02-10 03:40] VITALS: BP 161/82; PULSE 72; RESP 19; TEMP 37.2; O2SAT 94
[2018-02-10] MEDS: AMOXICILLIN 500 MG CAPSULE PO (05:59)
[2018-02-10] MEDS: Levothyroxine 75 MCG Tablet PO (05:59)
[2018-02-10] MEDS: Calcium Carbonate 500 MG Tablet PO (08:36)
[2018-02-10] MEDS: Magnesium Oxide 400 MG Tablet PO (08:36)
[2018-02-10] MEDS: Vitamin E 400 UNITS Capsule 800 UNITS PO (08:37)
[2018-02-10] MEDS: Smz/Tmp Ds Tablet 1 TABLET PO (08:37)
[2018-02-10 09:40] VITALS: BP 160/77; PULSE 74; RESP 18; TEMP 36.9; O2SAT 94
--- NOTE | 2018-02-10 09:48 | PCM.PN.HOSP ---
Patient Problems: Active and Suspected Problems (Last Updated 02/09/18 @ 14:09 by Grant Regalado DO) Cellulitis, leg (Acute) Subjective: no complaints. wants to go home. no leg pain, just complains about her right toes, which are doing better. Vitals/I&O's: Vital Signs Temp Pulse Resp BP Pulse Ox 37.2 C 73 19 H 161/82 H 94 02/10/18 03:40 02/10/18 08:43 02/10/18 03:40 02/10/18 03:40 02/10/18 03:40 Oxygen Delivery Method Room Air Weight: 105.4 kg Body Mass Index (BMI) 45.3 Intake and Output for Last 24 Hours 02/08/18 02/09/18 02/10/18 23:59 23:59 23:59 Intake Total 420 / 420 700 / 700 Output Total 325 / 325 600 / 600 Balance 95 / 95 100 / 100 General: Alert HEENT: Atraumatic, Normocephalic Oral: Moist Mucosa, No Gingival or Mucosal Lesions/ Ulcerations Neck: No Nodes, Thyroid Normal Size and Texture Extremities: Edema Skin: - - decreased erythema of medial legs bilaterally. Psych/Mental Status: Normal Affect, Appropriate Current Medications Acetaminophen (Tylenol) 650 mg PO Q6H PRN PRN PRN Reason: Mild Pain (scale 0-3)/T>100.7 Amoxicillin (Amoxil) 500 mg PO Q8 [facility] Last Admin: 02/10/18 05:59 Dose: 500 mg [facility] Admin: 02/10/18 08:36 Dose: 500 mg Dextrose (D50w Syringe) 0 gm IV X1 PRN; Protocol PRN Reason: Hypoglycemia Furosemide (Lasix) 40 mg PO BIDLX [facility] Last Admin: 02/10/18 08:38 Dose: 40 mg Glucagon () 1 mg IM .X1 PRN PRN Reason: Hypoglycemia Levothyroxine Sodium (Synthroid) 75 mcg PO DAILY@0600 [facility] Last Admin: 02/10/18 05:59 Dose: 75 mcg Magnesium Hydroxide (Milk Of Magnesia) 30 ml PO DAILY PRN PRN PRN Reason: Constipation Magn[facility] ([facility]-Ox 400) [facility] Last Admin: 02/10/18 08:36 Dose: 400 mg Metoprolol Succinate (Toprol Xl (Beta Berto)) 50 mg PO DAILY [facility] Last Admin: 02/10/18 08:43 Dose: 50 mg Non-Formulary Medication (Quinapril Hcl [Accupril]) 20 mg PO DAILY PRN PRN Reason: Hypertensive Emergency Ondansetron HCl (Zofran) 4 mg IV Q8H PRN PRN PRN Reason: Nausea Potassium Chloride (K-Dur) 20 meq PO DAILY [facility] Last Admin: 02/10/18 08:38 Dose: 20 meq Rivaroxaban (Xarelto) 20 mg PO DAILY@1700 [facility] Last Admin: 02/09/18 18:31 Dose: 20 mg Sodium Chloride () 5 - 30 ml IV UD PRN PRN Reason: SALINE FLUSH Trimethoprim/Sulfamethoxazole (Bactrim Ds) 1 tablet PO BIDCM [facility] Last Admin: 02/10/18 08:37 Dose: 1 tablet Vitamin E (Vitamin E) 800 units PO DAILYCM [facility] Last Admin: 02/10/18 08:37 Dose: 800 units Medical Necessity - Tobacco Use Smoking Status: Never smoker Tobacco Use: Non-smoker Assessment/Plan All Active Problems (Last Updated 02/09/18 @ 14:09 by Grant Regalado DO) Difficulty walking down slope (Acute) Bilateral edema of lower extremity (Acute) Infected skin ulcer limited to breakdown of skin (Acute) Bilateral cellulitis of lower leg (Acute) Non-healing non-surgical wound (Acute) Ulcer of left lower leg (Acute) Multiple superficial wounds with infection (Acute) Staphylococcus aureus infection (Acute) Peripheral vascular occlusive disease (Acute) Ulcer of right lower leg (Acute) Cellulitis, leg (Acute) 1. Lower extremity cellulitis Improved This diagnosis is really not to be venous stasis changes but given some of the patient's subjective complaints prior to arrival we will treat her empirically for cellulitis. As per the emergency room physician to admit the patient for bilateral lower extremity cellulitis with feel the patient has not if anything would be more right-sided. Patient is not septic and I do not feel that she requires IV antibiotics were taken the liberty of discontinuing the IV clindamycin at the emergency room physician had ordered I will change patient's oral Levaquin over to amoxicillin and Bactrim. She has a cephalosporin allergy Complicating this is patient's chronic venous stasis as well as venous stasis ulcers Patient is unaware of any diagnosis of heart failure but is on Lasix Pt declined lasix this AM. Would recommend BID dosing than the daily dosing to help augment swelling. She will need to follow up with cardiology for further cardiac eval. 2. DVT prophylaxis patient is anticoagulated on Xarelto. DC home today.
--- NOTE | 2018-02-10 09:51 | PN_ITS ---
Patient Problems: Active and Suspected Problems (Last Updated 02/09/18 @ 14:09 by Grant Regalado DO ) Cellulitis, leg (Acute) Subjective: no complaints. wants to go home. no leg pain, just complains about her right toes, which are doing better. Vitals/I&O's: Vital Signs Temp Pulse Resp BP Pulse Ox 37.2 C 73 19 H 161/82 H 94 02/10/18 03:40 02/10/18 08:43 02/10/18 03:40 02/10/18 03:40 02/10/18 03:40 Oxygen Delivery Method Room Air Weight: 105.4 kg Body Mass Index (BMI) 45.3 Intake and Output for Last 24 Hours 02/08/18 02/09/18 02/10/18 23:59 23:59 23:59 Intake Total 420 / 420 700 / 700 Output Total 325 / 325 600 / 600 Balance 95 / 95 100 / 100 General: Alert HEENT: Atraumatic, Normocephalic Oral: Moist Mucosa, No Gingival or Mucosal Lesions/ Ulcerations Neck: No Nodes, Thyroid Normal Size and Texture Extremities: Edema Skin: - - decreased erythema of medial legs bilaterally. Psych/Mental Status: Normal Affect, Appropriate Current Medications Acetaminophen (Tylenol) 650 mg PO Q6H PRN PRN PRN Reason: Mild Pain (scale 0-3)/T>100.7 Amoxicillin (Amoxil) 500 mg PO Q8 [facility] Last Admin: 02/10/18 05:59 Dose: 500 mg Calcium Carbonate (Tums) [facility] Last Admin: 02/10/18 08:36 Dose: 500 mg Dextrose (D50w Syringe) 0 gm IV X1 PRN; Protocol PRN Reason: Hypoglycemia Furosemide (Lasix) 40 mg PO BIDLX [facility] Last Admin: 02/10/18 08:38 Dose: 40 mg Glucagon () 1 mg IM .X1 PRN PRN Reason: Hypoglycemia Levothyroxine Sodium (Synthroid) 75 mcg PO DAILY@0600 [facility] Last Admin: 02/10/18 05:59 Dose: 75 mcg Magnesium Hydroxide (Milk Of Magnesia) 30 ml PO DAILY PRN PRN PRN Reason: Constipation Magnesium Oxide (Mag-Ox 400) [facility] Last Admin: 02/10/18 08:36 Dose: 400 mg Metoprolol Succinate (Toprol Xl (Beta Berto)) 50 mg PO DAILY [facility] Last Admin: 02/10/18 08:43 Dose: 50 mg Non-Formulary Medication (Quinapril Hcl [Accupril]) 20 mg PO DAILY PRN PRN Reason: Hypertensive Emergency Ondansetron HCl (Zofran) 4 mg IV Q8H PRN PRN PRN Reason: Nausea Potassium Chloride (K-Dur) 20 meq PO DAILY [facility] Last Admin: 02/10/18 08:38 Dose: 20 meq Rivaroxaban (Xarelto) 20 mg PO DAILY@1700 [facility] Last Admin: 02/09/18 18:31 Dose: 20 mg Sodium Chloride () 5 - 30 ml IV UD PRN PRN Reason: SALINE FLUSH Trimethoprim/Sulfamethoxazole (Bactrim Ds) 1 tablet PO BIDCM [facility] Last Admin: 02/10/18 08:37 Dose: 1 tablet Vitamin E (Vitamin E) 800 units PO DAILYCM [facility] Last Admin: 02/10/18 08:37 Dose: 800 units Medical Necessity - Tobacco Use Smoking Status: Never smoker Tobacco Use: Non-smoker Assessment/Plan All Active Problems (Last Updated 02/09/18 @ 14:09 by Grant Regalado DO) Difficulty walking down slope (Acute) Bilateral edema of lower extremity (Acute) Infected skin ulcer limited to breakdown of skin (Acute) Bilateral cellulitis of lower leg (Acute) Non-healing non-surgical wound (Acute) Ulcer of left lower leg (Acute) Multiple superficial wounds with infection (Acute) Staphylococcus aureus infection (Acute) Peripheral vascular occlusive disease (Acute) Ulcer of right lower leg (Acute) Cellulitis, leg (Acute) 1. Lower extremity cellulitis * Improved * This diagnosis is really not to be venous stasis changes but given some of the patient's subjective complaints prior to arrival we will treat her empirically for cellulitis. As per the emergency room physician to admit the patient for bilateral lower extremity cellulitis with feel the patient has not if anything would be more right-sided. Patient is not septic and I do not feel that she requires IV antibiotics were taken the liberty of discontinuing the IV clindamycin at the emergency room physician had ordered * I will change patient's oral Levaquin over to amoxicillin and Bactrim. She has a cephalosporin allergy * Complicating this is patient's chronic venous stasis as well as venous stasis ulcers * Patient is unaware of any diagnosis of heart failure but is on Lasix * Pt declined lasix this AM. Would recommend BID dosing than the daily dosing to help augment swelling. She will need to follow up with cardiology for further cardiac eval. 2. DVT prophylaxis patient is anticoagulated on Xarelto. DC home today.
--- NOTE | 2018-02-10 09:56 | DCINST_ITS ---
- Discharge Diagnoses Current Active Problems: Current Active and Chronic Problems (Last Updated 02/09/18 @ 14:09 by Grant Regalado DO) Cellulitis, leg (Acute) You will use the following diet at home:: Cardiac, Fluid restricted (specify 2000 mls, 1500 mls) - 1500cc/day Your food should be the consistency of: Regular Your liquids should be the consistency of: Regular/Thin Call your doctor if you observe: Fever of 101 or Higher, Shortness of breath, - - increased swelling lower extremities. increased redness of lower extremitites. Additional Instructions: Daily weights. Notify physician if greater than 2 pounds in 1 day, or 3 pounds in 1 week. Allergies/Adverse Reactions: Allergies ceftriaxone [From Rocephin] Allergy (Verified 02/09/18 10:53) Unknown levofloxacin [From Levaquin] Allergy (Verified 02/09/18 10:53) Unknown rosuvastatin calcium [From Crestor] Adverse Reaction (Verified 02/09/18 10:53) Other muscle aches Medications to take at Discharge Beta-Glucan, (1-3) (1-4) [Beta Glucan] 10 mg MC DAILY 03/17/14 Catalex F 2 tab PO DAILY 03/17/14 Cataplex B 3 tab PO DAILY 03/17/14 Cod Liver Oil 500 ml PO DAILY 03/17/14 Furosemide 40 mg PO DAILY 03/17/14 Levothyroxine [Synthroid] 75 mcg PO DAILY 03/17/14 Rivaroxaban [Xarelto] 20 mg PO DAILY 03/17/14 Calcium Lactate 252 mg PO BID 08/26/16 Magnesium Oxide [Magnesium] 400 mg PO DAILY 08/26/16 Potassium Chloride [K-Dur] 20 meq PO DAILY 08/26/16 Ubidecarenone [Coq10] 100 mg PO DAILY 08/26/16 Vitamin E 1,000 unit PO DAILY 08/26/16 Metoprolol Succinate [Toprol Xl] 50 mg PO DAILY 01/05/18 Quinapril HCl [Accupril] 20 mg PO DAILY PRN 01/05/18 Acetaminophen [Tylenol Tablet] 650 mg PO Q6H PRN PRN tablet 02/10/18 Amoxicillin [Amoxil] 500 mg PO Q8 #18 cap 02/10/18 Smz/Tmp Ds [Bactrim Ds] 1 tab PO BIDCM #12 tab 02/10/18 The following prescriptions were given: Amoxicillin [Amoxil] 500 mg PO Q8 #18 cap Smz/Tmp Ds [Bactrim Ds] 1 tab PO BIDCM #12 tab Primary Care Physician: Daquan Tenorio MD [Primary Care Provider] - Within 2 Weeks Test Results: Test results from this visit will be discussed in further detail at your follow- up appointment, if applicable. Please Follow Up With: cardiology When: 3-4 weeks Proposed Discharge Date: 02/10/18
--- NOTE | 2018-02-10 09:56 | PCM.DC.SUM ---
Discharge Date and Diagnosis - Problem List Patient Problems: Active and Suspected Problems (Last Updated 02/09/18 @ 14:09 by Grant Regalado DO) Cellulitis, leg (Acute) Date of Admission: 02/09/18 Date of Discharge: 02/10/18 - Primary Discharge Diagnosis Active and Suspected Problems (Last Updated 02/09/18 @ 14:09 by Grant Regalado DO) Cellulitis, leg (Acute) - Secondary Discharge Diagnosis Chronic Problems (Last Updated 02/09/18 @ 14:09 by Grant Regalado DO) Pacemaker (Chronic) Morbid obesity with BMI of 50.0-59.9, adult (Chronic) Pain in both lower legs (Chronic) Peripheral vascular occlusive disease (Chronic) Hospital Course and Treatment Operations: None Procedures: None Summary of Care Provided: The patient is a 82 year old F increased erythema of the lower extremities. Patient had low-grade temperature and some agent. Presented to an outside hospital started on clindamycin for possible cellulitis. Return to our hospital for concern for worsening erythema. Patient had some redness bilaterally that have some medial erythema extending from her lower extremities up into her medial thigh on the right. Patient was never septic and was changed over to Bactrim as well as amoxicillin. Today patient is doing better. Still unclear patient actually has overt cellulitis but patient will pleat the course of antibiotics. Patient instructed to return if she is feeling worse. Lower extremity cellulitis Improved This diagnosis is really not to be venous stasis changes but given some of the patient's subjective complaints prior to arrival we will treat her empirically for cellulitis. As per the emergency room physician to admit the patient for bilateral lower extremity cellulitis with feel the patient has not if anything would be more right-sided. Patient is not septic and I do not feel that she requires IV antibiotics were taken the liberty of discontinuing the IV clindamycin at the emergency room physician had ordered I will change patient's oral Levaquin over to amoxicillin and Bactrim. She has a cephalosporin allergy Complicating this is patient's chronic venous stasis as well as venous stasis ulcers Patient is unaware of any diagnosis of heart failure but is on Lasix Pt declined lasix this AM. Would recommend BID dosing than the daily dosing to help augment swelling. She will need to follow up with cardiology for further cardiac eval.[] Discharge Diet: Low fat/ Low Cholesterol, 6 Cup Fluid Restriction, 2000 mg Sodium Diet Discharge Activity: Return to Normal Activity Call your doctor if you observe: Fever of 101 or Higher, Shortness of breath, - - increased swelling lower extremities. increased redness of lower extremitites. Home Medications: Medications to take at Discharge Beta-Glucan, (1-3) (1-4) [Beta Glucan] 10 mg MC DAILY 03/17/14 Catalex F 2 tab PO DAILY 03/17/14 Cataplex B 3 tab PO DAILY 03/17/14 Cod Liver Oil 500 ml PO DAILY 03/17/14 Furosemide 40 mg PO DAILY 03/17/14 Levothyroxine [Synthroid] 75 mcg PO DAILY 03/17/14 Rivaroxaban [Xarelto] 20 mg PO DAILY 03/17/14 Calcium Lactate 252 mg PO BID 08/26/16 Magnesium Oxide [Magnesium] 400 mg PO DAILY 08/26/16 Potassium Chloride [K-Dur] 20 meq PO DAILY 08/26/16 Ubidecarenone [Coq10] 100 mg PO DAILY 08/26/16 Vitamin E 1,000 unit PO DAILY 08/26/16 Metoprolol Succinate [Toprol Xl] 50 mg PO DAILY 01/05/18 Quinapril HCl [Accupril] 20 mg PO DAILY PRN 01/05/18 Acetaminophen [Tylenol Tablet] 650 mg PO Q6H PRN PRN tablet 02/10/18 Amoxicillin [Amoxil] 500 mg PO Q8 #18 cap 02/10/18 Smz/Tmp Ds [Bactrim Ds] 1 tab PO BIDCM #12 tab 02/10/18 Following Prescrptions Were Given to Patient: Amoxicillin [Amoxil] 500 mg PO Q8 #18 cap Smz/Tmp Ds [Bactrim Ds] 1 tab PO BIDCM #12 tab Primary Care Physician: Daquan Tenorio MD [Primary Care Provider] - Within 2 Weeks Please Follow Up With: cardiology When: 3-4 weeks Disposition: Home Minutes spent on discharge:: 32 Patient Condition:: Fair Medical Necessity - Tobacco Use Smoking Status: Never smoker Tobacco Use: Non-smoker Meaningful Use Info Meaningful Use Diagnoses (Choose all that apply): None applicable Code Visit OBSV E&M: 48313 Observation care discharge
--- NOTE | 2018-02-10 10:00 | DS.PCM_ITS ---
Discharge Date and Diagnosis - Problem List Patient Problems: Active and Suspected Problems (Last Updated 02/09/18 @ 14:09 by Grant Regalado DO ) Cellulitis, leg (Acute) Date of Admission: 02/09/18 Date of Discharge: 02/10/18 - Primary Discharge Diagnosis Active and Suspected Problems (Last Updated 02/09/18 @ 14:09 by Grant Regalado DO ) Cellulitis, leg (Acute) - Secondary Discharge Diagnosis Chronic Problems (Last Updated 02/09/18 @ 14:09 by Grant Regalado DO) Pacemaker (Chronic) Morbid obesity with BMI of 50.0-59.9, adult (Chronic) Pain in both lower legs (Chronic) Peripheral vascular occlusive disease (Chronic) Hospital Course and Treatment Operations: None Procedures: None Summary of Care Provided: The patient is a 82 year old F increased erythema of the lower extremities. Patient had low-grade temperature and some agent. Presented to an outside hospital started on clindamycin for possible cellulitis. Return to our hospital for concern for worsening erythema. Patient had some redness bilaterally that have some medial erythema extending from her lower extremities up into her medial thigh on the right. Patient was never septic and was changed over to Bactrim as well as amoxicillin. Today patient is doing better. Still unclear patient actually has overt cellulitis but patient will pleat the course of antibiotics. Patient instructed to return if she is feeling worse. Lower extremity cellulitis * Improved * This diagnosis is really not to be venous stasis changes but given some of the patient's subjective complaints prior to arrival we will treat her empirically for cellulitis. As per the emergency room physician to admit the patient for bilateral lower extremity cellulitis with feel the patient has not if anything would be more right-sided. Patient is not septic and I do not feel that she requires IV antibiotics were taken the liberty of discontinuing the IV clindamycin at the emergency room physician had ordered * I will change patient's oral Levaquin over to amoxicillin and Bactrim. She has a cephalosporin allergy * Complicating this is patient's chronic venous stasis as well as venous stasis ulcers * Patient is unaware of any diagnosis of heart failure but is on Lasix * Pt declined lasix this AM. Would recommend BID dosing than the daily dosing to help augment swelling. She will need to follow up with cardiology for further cardiac eval.[] Discharge Diet: Low fat/ Low Cholesterol, 6 Cup Fluid Restriction, 2000 mg Sodium Diet Discharge Activity: Return to Normal Activity Call your doctor if you observe: Fever of 101 or Higher, Shortness of breath, - - increased swelling lower extremities. increased redness of lower extremitites. Home Medications: Medications to take at Discharge Beta-Glucan, (1-3) (1-4) [Beta Glucan] 10 mg MC DAILY 03/17/14 Catalex F 2 tab PO DAILY 03/17/14 Cataplex B 3 tab PO DAILY 03/17/14 Cod Liver Oil 500 ml PO DAILY 03/17/14 Furosemide 40 mg PO DAILY 03/17/14 Levothyroxine [Synthroid] 75 mcg PO DAILY 03/17/14 Rivaroxaban [Xarelto] 20 mg PO DAILY 03/17/14 Calcium Lactate 252 mg PO BID 08/26/16 Magnesium Oxide [Magnesium] 400 mg PO DAILY 08/26/16 Potassium Chloride [K-Dur] 20 meq PO DAILY 08/26/16 Ubidecarenone [Coq10] 100 mg PO DAILY 08/26/16 Vitamin E 1,000 unit PO DAILY 08/26/16 Metoprolol Succinate [Toprol Xl] 50 mg PO DAILY 01/05/18 Quinapril HCl [Accupril] 20 mg PO DAILY PRN 01/05/18 Acetaminophen [Tylenol Tablet] 650 mg PO Q6H PRN PRN tablet 02/10/18 Amoxicillin [Amoxil] 500 mg PO Q8 #18 cap 02/10/18 Smz/Tmp Ds [Bactrim Ds] 1 tab PO BIDCM #12 tab 02/10/18 Following Prescrptions Were Given to Patient: Amoxicillin [Amoxil] 500 mg PO Q8 #18 cap Smz/Tmp Ds [Bactrim Ds] 1 tab PO BIDCM #12 tab Primary Care Physician: Daquan Tenorio MD [Primary Care Provider] - Within 2 Weeks Please Follow Up With: cardiology When: 3-4 weeks Disposition: Home Minutes spent on discharge:: 32 Patient Condition:: Fair Medical Necessity - Tobacco Use Smoking Status: Never smoker Tobacco Use: Non-smoker Meaningful Use Info Meaningful Use Diagnoses (Choose all that apply): None applicable Code Visit OBSV E&M: 54270 Observation care discharge
--- NOTE | 2018-02-10 12:10 | CASEMGMT ---
ELIANA STEELE spoke with pt's daughter, Michelle Velásquez, re: [facility]. Michelle made aware Stella MONROY CM spoke with [facility] 02/09/18 and that she will follow up with her on Monday re: [facility] services. Michelle given Stella's ELIAAN STEELE phone number. Michelle thanked ELIANA STEELE for the information and stated she will contact Stella on Monday if she has not heard from her by then. Gianni ESCUDERO RN, CM
--- NOTE | 2018-02-12 09:28 | CM.ED ---
Call placed to Radha Mckay, with [facility]. Clinicals and order faxed to Radha Mckay. She will review and call patient directly. Awaiting return call from [facility] to verify plan of care.
--- NOTE | 2018-02-12 16:38 | CASEMGMT ---
[facility], Radha Mckay, called stating they are unable to accept the patient d/t her insurance. [facility] they are able to accept the patient with a start of service for this Monday or Monday. Clinicals faxed to [facility] at [phone]. Igor states [facility] will follow-up with patient and family. Call placed to patient's home phone with no answer. I left a voicemail stating return contact information and requested they call me if they do not hear from [facility] by midday tomorrow.
== END 2018-02-10 12:06 | disposition home or self-care (01) ==
LOC: ED 14:02 → MS3 14:41
PROVIDERS: Emergency Provider Emergency Medicine; Family Provider Family Medicine; PCP Family Medicine
DX: L03.116 Cellulitis of left lower limb (principal); L03.115 Cellulitis of right lower limb; I83.018 Varicose veins of right lower extremity with ulcer other part of lower leg; I83.028 Varicose veins of left lower extremity with ulcer other part of lower leg; L97.811 Non-pressure chronic ulcer of other part of right lower leg limited to breakdown of skin; L97.821 Non-pressure chronic ulcer of other part of left lower leg limited to breakdown of skin; E03.9 Hypothyroidism, unspecified; Z79.899 Other long term (current) drug therapy; I48.91 Unspecified atrial fibrillation; E66.01 Morbid (severe) obesity due to excess calories; Z68.42 Body mass index [BMI] 45.0-49.9, adult; Z71.3 Dietary counseling and surveillance; Z95.0 Presence of cardiac pacemaker
CPT/HCPCS: 80048; 83605; 85025; 99218; 99283; G0378

== ENCOUNTER 2018-03-16 11:24 | Inpatient (IN) | payer MEDICARE, MEDICAID, SELFPAY ==
[2018-03-16] VITALS (7 sets, daily range): BP systolic 133–169; BP diastolic 67–92; PULSE 71–81; RESP 12–18; TEMP 36.8; O2SAT 92–96; BMI 43.5; BMI 43.6; BMI 38.6
[2018-03-16] MEDS: Piperacil/Tazobactam 3.375 GM/50 ML ML IV ×2 (12:08→21:23)
[2018-03-16 12:10] LABS: Absolute Lymphocyte Count 1.81 X10^3/ul (0.83-4.51); Absolute Neutrophil Count 10.9 X10^3/uL (2.0-7.7); Basophil# 0.02 X10^3/uL; Basophil% 0.1 % (0-1); Eosinophil# 0.07 X10^3/uL; Eosinophils% 0.5 % (0-5); Hematocrit 37.8 % (37-47); Hemoglobin 11.3 g/dl (12.0-15.0); Lymphocyte # 1.81 X10^3/ul (4.0); Mean Corp Hgb Conc 29.9 g/gl (32-36); Mean Corpuscular Hgb 22.7 pg (27.0-32.0); Mean Corpuscular Volume 75.9 fL (81-99); Mean Platelet Vol. 8.5 fl (6.2-12.0); Monocyte# 1.05 X10^3/uL; Monocyte% 7.6 % (0-10); Neutrophil # 10.91 X10^3/uL (2.7-7.7); Neutrophil % 78.6 % (47-70); Platelet Count 328 K/mm3 (150-450); RBC Distribution Width CV 20.9 % (11.6-14.6); RBC Distribution Width SD 57.6 fl (35.1-43.9); Red Blood Count 4.98 M/mm3 (4.2-5.4); White Blood Count 13.9 K/mm3 (4.4-11.0)
[2018-03-16 12:12] LABS: Differential Indicated SCAN CRITERIA MET; POSITIVE COUNT NO; POSITIVE DIFFERENTIAL NO; POSITIVE MORPHOLOGY YES
[2018-03-16 12:14] LABS: Albumin, Serum 2.9 g/dL (3.2-5.0); BUN 21 mg/dL (7-18); Creatinine, Serum 1.05 mg/dL (0.55-1.02); EST Glomerular Filtration Rate 53 mL/min (>60); Est Glom Filt Rate - Afr Amer 64 mL/min (>60); Estimated Creatinine Clearance 29.16 ml/min; Glucose 91 mg/dL (74-106); Protein, Total 7.9 g/dL (6.4-8.2)
[2018-03-16 12:15] LABS: ALB/GLOB Ratio 0.6 RATIO (0.9-2.4); AST(SGOT) 18 U/L (15-37); Alanine Aminotransfer ALT/SGPT 13 U/L (13-56); Alkaline Phosphatase 97 U/L (45-117); Anion Gap 6 (5-15); Calcium,Total 8.9 mg/dL (8.5-10.1); Chloride 98 mmol/L (98-107); Potassium 4.1 mmol/L (3.5-5.1); Sodium Level 138 mmol/L (136-145)
--- NOTE | 2018-03-16 12:15 | ED.VISSUMM ---
- ER Visit Summary Date of Service: 03/16/18 Chief Complaint: Right leg redness and History of Present Illness: The patient is a 82 F presents to the emergency department with right leg redness and swelling. The patient has a history of chronic venous stasis. She does have foot ulcerations that she follows with the wound care center. Over the past 24 hours, she has had increasing right leg redness and swelling. She went to [place] emergency department yesterday. She had IV antibiotics and was started on clindamycin. She states that overnight, the redness is worsened. She has began to have chills and sweats. The patient is very vocal that I do not want to be admitted to the hospital. She is with her daughter who helps care for her. Physical Examination: Vital signs reviewed General: Well-nourished, well-developed Head: Normocephalic, atraumatic Eyes: Pupils equal and reactive, extraocular muscles intact Neck, supple, no lymphadenopathy Heart: Regular rate and rhythm Respiratory: No distress, clear bilaterally Abdomen: Soft, nontender, nondistended, no peritoneal signs Back: Nontender Extremities: Redness and erythema of the right lower extremity up above the knee. There is streaking. She does have tenderness to palpation. Pulses are normal. Skin: Normal color no rash Neuro: Alert and oriented, no focal or lateralizing deficits Test Results: [] Emergency Department Course and Treatment: The patient presents to the emergency department with worsening cellulitis of her right lower extremity despite antibiotic therapy. She admits to chills but denies any fevers. Screening labs are obtained and she does have a mild leukocytosis. Lactate was negative. She was started on IV clindamycin and Zosyn. I initially was going to order an ultrasound, but the patient refused. She is on Xarelto for prior atrial fibrillation. I do suspect that her risk of clot is low. With the patient's failed outpatient therapy, I do feel that she is going require admission. Patient was discussed with the hospitalist. Treatment Plan: [] Disposition: Admission Impression: 1. Right lower extremity cellulitis with failed outpatient treatment This note was generated with [employer] dictation software. It may contain incorrect words, spelling, and punctuation that were not noted in review of the chart prior to signing ED Disposition - Plan for ED Patient: Chief Complaint: Cellulitis Referrals: Daquan Tenorio MD [Primary Care Provider] -
--- NOTE | 2018-03-16 12:29 | ED.RN ---
PT REFUSING TO GET INTO BED FOR ULTRASOUND. STS ITS TOO PAINFUL AND I AM NOT LAYING DOWN. REFUSING PAIN MEDICATION FOR PROCEDURE WELL. DR PONCE NOTIFIED
[2018-03-16 12:44] LABS: Lactic Acid 1.5 mmol/L (0.4-2.0)
[2018-03-16 12:52] LABS: Anisocytosis 1+; Hypochromasia 1+
--- NOTE | 2018-03-16 14:13 | PCM.HP.STD ---
History of Present Illness Date of Admission: 03/16/18 Chief Complaint: RLE edema, redness The patient is a 82 year old F [] Past Medical History Past Medical History (Chronic Problems): Chronic Problems (Last Updated 02/09/18 @ 14:09 by Grant Regalado DO) Pacemaker (Chronic) Morbid obesity with BMI of 50.0-59.9, adult (Chronic) Pain in both lower legs (Chronic) Peripheral vascular occlusive disease (Chronic) Medical History: Medical History (Last Updated 02/09/18 @ 14:09 by Grant Regalado DO) Afib I48.91 PAD (peripheral artery disease) I73.9 Allergies ceftriaxone [From Rocephin] Allergy (Verified 03/16/18 11:31) Unknown levofloxacin [From Levaquin] Allergy (Verified 03/16/18 11:31) Unknown rosuvastatin calcium [From Crestor] Adverse Reaction (Verified 03/16/18 11:31) Other muscle aches Home Medications: Ambulatory Orders Medication Instructions Recorded Beta-Glucan, (1-3) (1-4) [Beta 10 mg MC DAILY 03/17/14 Glucan] Cod Liver Oil 750 ml PO DAILY 03/17/14 Furosemide 40 mg PO DAILY 03/17/14 Levothyroxine [Synthroid] 50 mcg PO DAILY 03/17/14 Rivaroxaban [Xarelto] 20 mg PO DAILY 03/17/14 Magnesium Oxide [Magnesium] 400 mg PO DAILY 08/26/16 Ubidecarenone [Coq10] 100 mg PO DAILY 08/26/16 Metoprolol Succinate [Toprol Xl] 50 mg PO DAILY 01/05/18 Quinapril HCl [Accupril] 20 mg PO DAILY PRN 01/05/18 Clindamycin [Cleocin] 300 mg PO 4X/DAY 03/16/18 Potassium 20 mg PO DAILY 03/16/18 Surgical History: pacemaker implantation, - Smoking Status: Never smoker - *Family History Maternal History Items: Heart Disease Paternal History Items: Heart Disease, Stroke Sibling History Items: Heart Disease, - - Kidney disease Patient Problems: Active and Suspected Problems (Last Updated 02/09/18 @ 14:09 by Grant Regalado DO) Cellulitis of right leg (Acute) Open wound of foot excluding toes (Acute) Debility (Acute) - Physical Exam Vital Signs Temp Pulse Resp BP Pulse Ox 98.2 F 71 12 141/82 H 92 03/16/18 11:25 03/16/18 14:06 03/16/18 12:39 03/16/18 14:06 03/16/18 14:06 Oxygen Delivery Method Room Air Weight: 223 lb Body Mass Index (BMI) 43.5 Laboratory Tests Past 24 Hrs 03/16/18 03/16/18 03/16/18 11:30 11:30 12:09 WBC 13.9 H RBC 4.98 Hgb 11.3 L Hct 37.8 MCV 75.9 L MCH 22.7 L MCHC 29.9 L RDW 20.9 H RDW Differential 57.6 H Plt Count 328 MPV 8.5 Immature Gran % (Auto) 0.200 Neut % (Auto) 78.6 H Lymph % (Auto) 13.0 L [place] % (Auto) 7.6 Eos % (Auto) 0.5 Baso % (Auto) 0.1 Absolute Neuts (auto) 10.9 H Absolute Lymphs (auto) 1.81 Total Counted Not Reportable Hypochromasia 1+ Anisocytosis 1+ Sodium 138 Potassium 4.1 Chloride 98 Carbon Dioxide 34.0 H Anion Gap 6 BUN 21 H Creatinine 1.05 H Estim Creat Clear Calc 29.16 Est GFR (MDRD) Af Amer 64 Est GFR (MDRD) Non-Af 53 L BUN/Creatinine Ratio 20.0 Glucose 91 Lactic Acid 1.5 Calcium 8.9 Total Bilirubin 2.00 H AST 18 ALT 13 Alkaline Phosphatase 97 Total Protein 7.9 Albumin 2.9 L Globulin 5.0 H Albumin/Globulin Ratio 0.6 L Assessment/Plan All Active Problems (Last Updated 02/09/18 @ 14:09 by Grant Regalado DO) Difficulty walking down slope (Acute) Bilateral edema of lower extremity (Acute) Infected skin ulcer limited to breakdown of skin (Acute) Bilateral cellulitis of lower leg (Acute) Non-healing non-surgical wound (Acute) Ulcer of left lower leg (Acute) Multiple superficial wounds with infection (Acute) Staphylococcus aureus infection (Acute) Peripheral vascular occlusive disease (Acute) Ulcer of right lower leg (Acute) Cellulitis, leg (Acute) Cellulitis of right leg (Acute) Open wound of foot excluding toes (Acute) Debility (Acute)
--- NOTE | 2018-03-16 14:14 | NURSING ---
DR THOMAS FOR ER DOC
--- NOTE | 2018-03-16 14:28 | NURSING ---
MED SURG CELLULITIS RT LEG WHITE
--- NOTE | 2018-03-16 14:38 | HP.PCM_ITS ---
Problem List (1) Bilateral edema of lower extremity Status: Chronic (2) Infected skin ulcer limited to breakdown of skin Status: Acute (3) Pacemaker Status: Chronic (4) Morbid obesity with BMI of 50.0-59.9, adult Status: Chronic (5) Staphylococcus aureus infection Status: Resolved (6) Peripheral vascular occlusive disease Status: Chronic (7) Ulcer of right lower leg Status: Acute (8) Cellulitis of right leg Status: Acute (9) Debility Status: Chronic History of Present Illness Date of Admission: 03/16/18 Chief Complaint: Right foot wounds, right lower extremity cellulitis The patient is a 82 year old F who presents the emergency room due to right lower extremity cellulitis with open ulcers of the right anterior first and second toe. Patient was seen at [facility] room yesterday and received dose of IV clindamycin. She was discharged on oral clindamycin. She has been taking them as prescribed since yesterday. Patient lives with daughter. Daughter at bedside states redness has increased approximately towards the knee since yesterday. Patient complains of significant right lower extremity pain, increased with walking. Patient states she has fairly comfortable at rest. She describes significant serosanguineous drainage from the right toe wounds. Denies fever, chills. Denies nausea, vomiting, diarrhea. No other associated complaints. She has a past medical history of paroxysmal atrial fibrillation, hypertension, hypothyroidism, peripheral vascular occlusive disease, morbid obesity, status post pacemaker. Past Medical History Past Medical History (Chronic Problems): Chronic Problems (Last Updated 02/09/18 @ 14:09 by Grant Regalado DO) Bilateral edema of lower extremity (Chronic) Pacemaker (Chronic) Morbid obesity with BMI of 50.0-59.9, adult (Chronic) Peripheral vascular occlusive disease (Chronic) Debility (Chronic) Medical History: Medical History (Last Updated 02/09/18 @ 14:09 by Grant Regalado DO) Afib I48.91 PAD (peripheral artery disease) I73.9 Allergies ceftriaxone [From Rocephin] Allergy (Verified 03/16/18 11:31) Unknown levofloxacin [From Levaquin] Allergy (Verified 03/16/18 11:31) Unknown rosuvastatin calcium [From Crestor] Adverse Reaction (Verified 03/16/18 11:31) Other muscle aches Home Medications: Ambulatory Orders Medication Instructions Recorded Beta-Glucan, (1-3) (1-4) [Beta 10 mg MC DAILY 03/17/14 Glucan] Cod Liver Oil 750 ml PO DAILY 03/17/14 Furosemide 10 mg PO DAILY PRN PRN 03/17/14 Rivaroxaban [Xarelto] 20 mg PO QHS 03/17/14 Magnesium Oxide [Magnesium] 400 mg PO QHS 08/26/16 Ubidecarenone [Coq10] 100 mg PO DAILY 08/26/16 Metoprolol Succinate [Toprol Xl] 50 mg PO DINNER 01/05/18 Quinapril HCl [Accupril] 20 mg PO DAILY PRN PRN 01/05/18 Clindamycin [Cleocin] 300 mg PO 4X/DAY 03/16/18 Levothyroxine [Synthroid] 75 mcg PO DAILY 03/16/18 Potassium Bicarbonate/Cit AC 20 meq PO DAILY PRN PRN 03/16/18 [Effer-K 10 Meq Tablet Eff] Surgical History: pacemaker implantation Psychiatric History: No pertinent psych hx Lives: With Family Smoking Status: Never smoker Alcohol: None Drugs: None - *Family History Maternal History Items: Heart Disease Paternal History Items: Heart Disease, Stroke Sibling History Items: Heart Disease, - - Kidney disease Review of Systems Constitutional: Denies: Chills, Fever, Weight Change HEENT: Denies: Head Aches, Sinus Congestion, Sinus Drainage Cardiovascular: Denies: Chest Pain, Palpitations Respiratory: Denies: Cough, Shortness of breath at rest, Sputum production Gastrointestinal: Denies: Abdominal Pain, Nausea, Vomiting Genitourinary: Denies: Dysuria Musculoskeletal: Reports: - - Right first and second toe pain/right foot pain.. Denies: Joint Pain, Joint Tenderness Skin: Reports: - - Right first and second toe wounds Neurological: Denies: Numbness, Tingling, Focal weakness Psychiatric: Denies: Anxiety, Depression, Homicidal Ideations, Suicidal Ideations Hematologic/ Lymphatic: Denies: Easy Bruising, Easy Bleeding VTE Information - Inpt Only VTE Present on Admission: No VTE Mechan Device Prophylaxis: None VTE Pharm Prophylaxis ordered?: Yes Patient Problems: Active and Suspected Problems (Last Updated 02/09/18 @ 14:09 by Grant Regalado DO ) Cellulitis of right leg (Acute) - Physical Exam General: Alert, Oriented x3, Cooperative HEENT: Atraumatic, PERRLA, EOMI, Normocephalic Neck: Supple, No JVD, Negative Carotid Bruits Lungs: Clear to auscultation, Normal air movement Cardiovascular: Regular rate, No murmurs Abdomen: Bowel Sounds Present, Soft, Non Tender, Non-Distended, Obese Extremities: No clubbing, No cyanosis, Capillary Refill Less than 3 Seconds, Edema - Bilateral lower extremity edema Skin: - - Open ulcers right anterior first and second toe with copious amount of serosanguineous drainage. Redness right lower extremity extending proximally to knee. Musculoskeletal: No Tenderness to Palpation of Joints or Extremities Neurological: Cranial nerves II-XII grossly intact Psych/Mental Status: Normal Affect, Appropriate Vital Signs Temp Pulse Resp BP Pulse Ox 98.2 F 71 12 141/82 H 92 03/16/18 11:25 03/16/18 14:06 03/16/18 12:39 03/16/18 14:06 03/16/18 14:06 Oxygen Delivery Method Room Air Weight: 223 lb Body Mass Index (BMI) 43.5 Laboratory Tests Past 24 Hrs 03/16/18 03/16/18 03/16/18 11:30 11:30 12:09 WBC 13.9 H RBC 4.98 Hgb 11.3 L Hct 37.8 MCV 75.9 L MCH 22.7 L MCHC 29.9 L RDW 20.9 H RDW Differential 57.6 H Plt Count 328 MPV 8.5 Immature Gran % (Auto) 0.200 Neut % (Auto) 78.6 H Lymph % (Auto) 13.0 L [place] % (Auto) 7.6 Eos % (Auto) 0.5 Baso % (Auto) 0.1 Absolute Neuts (auto) 10.9 H Absolute Lymphs (auto) 1.81 Total Counted Not Reportable Hypochromasia 1+ Anisocytosis 1+ Sodium 138 Potassium 4.1 Chloride 98 Carbon Dioxide 34.0 H Anion Gap 6 BUN 21 H Creatinine 1.05 H Estim Creat Clear Calc 29.16 Est GFR (MDRD) Af Amer 64 Est GFR (MDRD) Non-Af 53 L BUN/Creatinine Ratio 20.0 Glucose 91 Lactic Acid 1.5 Calcium 8.9 Total Bilirubin 2.00 H AST 18 ALT 13 Alkaline Phosphatase 97 Total Protein 7.9 Albumin 2.9 L Globulin 5.0 H Albumin/Globulin Ratio 0.6 L Assessment/Plan All Active Problems (Last Updated 02/09/18 @ 14:09 by Grant Regalado DO) Infected skin ulcer limited to breakdown of skin (Acute) Ulcer of right lower leg (Acute) Cellulitis of right leg (Acute) Staphylococcus aureus infection (Resolved) 1. Right lower extremity cellulitis with ulcerations to right anterior first and second toe secondary to peripheral vascular disease-patient has had recurrent cellulitis of lower extremities. Follows with wound care center. Failed outpatient antibiotic therapy. Hernandez wraps bilateral lower extremities. Elevate bilateral lower extremities. Blood cultures pending. Wound culture drawn from wound center, pending. Previous blood cultures showed staph aureus, raoultella ornithinolytica, enterococcus faecalis. IV vanc and IV zosyn given hx of complicated wound cx. Follows cultures. Wound RN consult. 2. Peripheral vascular occlusive disease-follows with wound center. Hernandez wraps bilateral lower extremities. 3. Paroxysmal atrial fibrillation-rate controlled. Continue metoprolol and Xarelto. 4. Chronic DVT, left popliteal-continue Xarelto. Patient refused ultrasound right lower extremity. 5. Hypertension-mildly elevated on admission. Continue home metoprolol regimen. Takes quinapril and furosemide as needed? Continue to monitor blood pressure. 6. Hypothyroidism-continue Synthroid regimen. 7. 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 Chronic kidney disease stage III-stable, continue to monitor. 9. Morbid obesity-encourage diet and lifestyle modifications. Nutrition consult. DVT prophylaxis-Xarelto This patient was seen by TABITHA Mccrary under the supervision of Dr. Butterfield.
--- NOTE | 2018-03-16 15:21 | PCM.RX.CS ---
Consult Pharmacy has been consulted to manage selected antiobiotic: Vancomycin Type of Consult: New start Suspected Infection: Skin/Soft tissue Labs: Sodium 138 mmol/L (136-145) 03/16/18 11:30 Potassium 4.1 mmol/L (3.5-5.1) 03/16/18 11:30 Chloride 98 mmol/L (98-107) 03/16/18 11:30 Carbon Dioxide 34.0 mmol/L (21.0-32.0) H 03/16/18 11:30 Anion Gap 6 (5-15) 03/16/18 11:30 BUN 21 mg/dL (7-18) H 03/16/18 11:30 Creatinine 1.05 mg/dL (0.55-1.02) H 03/16/18 11:30 Est GFR (MDRD) Af Amer 64 mL/min (>60) 03/16/18 11:30 Est GFR (MDRD) Non-Af 53 mL/min (>60) L 03/16/18 11:30 BUN/Creatinine Ratio 20.0 RATIO (10-20) 03/16/18 11:30 Glucose 91 mg/dL (74-106) 03/16/18 11:30 Weight used for dosin kg Estimated Creatinine Clearance: 30 ml/min Goal Trough: 10-15 mcg/mL Pharmacy Plan for Drug Dosing: Recommend vancomycin 1500mg IV x1, 1000mg IV q24h after, trough prior to 3rd dose. Pharmacy Service will continue to monitor and adjust dosing as required. Follow-Up Labs: Trough Vancomycin - 03/18 @ 1400
[2018-03-16 16:02] LABS: Magnesium 2.3 mg/dL (1.6-2.6)
[2018-03-16] MEDS: Metoprolol(XL)Succ 50 MG Tablet PO (16:25)
[2018-03-16] MEDS: Furosemide 40 MG/4 ML Vial IV (20:04)
[2018-03-16] MEDS: Rivaroxaban 20 MG Tablet PO (20:04)
[2018-03-16 22:02] LABS: Ferritin 58 ng/mL (8-252); Iron 14 ug/dL (50-170); Iron Binding Capacity,Total 359 ug/dL (250-450); PERCENT IRON SATURATION 3.9 % (15.0-55.0)
[2018-03-17 03:43] VITALS: BP 147/79; PULSE 70; RESP 15; TEMP 36.7; O2SAT 91
[2018-03-17] MEDS: Piperacil/Tazobactam 3.375 GM/50 ML ML IV (05:33)
[2018-03-17] MEDS: Levothyroxine 75 MCG Tablet PO (05:33)
[2018-03-17 07:57] LABS: Anion Gap 10 (5-15); BUN 23 mg/dL (7-18); BUN/Creat Ratio 23.3 RATIO (10-20); Calcium,Total 8.8 mg/dL (8.5-10.1); Chloride 100 mmol/L (98-107); Creatinine, Serum 0.99 mg/dL (0.55-1.02); EST Glomerular Filtration Rate 57 mL/min (>60); Est Glom Filt Rate - Afr Amer 69 mL/min (>60); Estimated Creatinine Clearance 60.63 ml/min; Glucose 81 mg/dL (74-106); Potassium 3.9 mmol/L (3.5-5.1); Sodium Level 140 mmol/L (136-145)
[2018-03-17 08:09] LABS: Absolute Lymphocyte Count 1.92 X10^3/ul (0.83-4.51); Absolute Neutrophil Count 6.9 X10^3/uL (2.0-7.7); Basophil# 0.02 X10^3/uL; Basophil% 0.2 % (0-1); Eosinophil# 0.16 X10^3/uL; Eosinophils% 1.6 % (0-5); Hematocrit 35.5 % (37-47); Hemoglobin 10.6 g/dl (12.0-15.0); Lymphocyte # 1.92 X10^3/ul (4.0); Lymphocyte % 19.5 % (19-41); Mean Corp Hgb Conc 29.9 g/gl (32-36); Mean Corpuscular Hgb 22.4 pg (27.0-32.0); Mean Corpuscular Volume 75.1 fL (81-99); Mean Platelet Vol. 8.4 fl (6.2-12.0); Monocyte# 0.87 X10^3/uL; Monocyte% 8.8 % (0-10); Neutrophil # 6.89 X10^3/uL (2.7-7.7); Neutrophil % 69.8 % (47-70); Platelet Count 314 K/mm3 (150-450); RBC Distribution Width CV 20.6 % (11.6-14.6); RBC Distribution Width SD 56.1 fl (35.1-43.9); Red Blood Count 4.73 M/mm3 (4.2-5.4); White Blood Count 9.9 K/mm3 (4.4-11.0)
[2018-03-17 08:10] LABS: Differential Indicated SCAN CRITERIA MET; POSITIVE COUNT NO; POSITIVE DIFFERENTIAL NO; POSITIVE MORPHOLOGY YES
[2018-03-17 08:15] VITALS: BP 122/58; PULSE 70; RESP 18; TEMP 37.1; O2SAT 92
[2018-03-17] MEDS: Famotidine 20 MG Tablet PO (08:19)
[2018-03-17] MEDS: Lisinopril 20 MG Tablet PO (08:20)
[2018-03-17 09:01] LABS: Differential Comment SCANNED
[2018-03-17 09:02] LABS: Anisocytosis 2+; Hypochromasia 1+; Microcytosis 1+
[2018-03-17 09:33] VITALS: O2SAT 92
--- NOTE | 2018-03-17 12:55 | CON.PCM_ITS ---
Reason for Consult Date of Consultation: 03/17/18 Reason for Consultation: Right foot 1st and 2nd toe ulcerations with right lower extremity cellulitis History of Present Illness: The patient is a 82 year old female with history of multiple medical problems was seen today for right foot 1st and 2nd toe ulcerations with right lower extremity cellulitis. She has been following with the wound center. Wounds have been chronic. She was seen yesterday at the wound center but was sent to ER due to acute cellulitis. This is not the first episode. WBC was elevated yesterday, patient has been on IV vancomycin and Zosyn. Patient relates toes are painful. Her daughter is at bedside. Patient is sitting up in chair, feet not elevated. Patient refused venous doppler, and per nursing refused dressing changes. There is a lot of drainage on the bandage. Patient keeps says he is going to leave, requesting for IV to be taken out, she states she hates all hospitals. Patient relates she lives with her daughter, her daughter is at bedside. He daughter states she made patient stay last night, but is supportive of patient's decision to leave hospital today against medical advice. Per daughter, patient did see Dr. Tripp Jouse from vascular surgery in December, was prescribed compression stockings. Past Medical History Past Medical History (Chronic Problems): Chronic Problems (Last Updated 02/09/18 @ 14:09 by Grant Regalado DO) Bilateral edema of lower extremity (Chronic) Pacemaker (Chronic) Morbid obesity with BMI of 50.0-59.9, adult (Chronic) Peripheral vascular occlusive disease (Chronic) Debility (Chronic) Medical History: Medical History (Last Updated 02/09/18 @ 14:09 by Grant Regalado DO) Afib I48.91 PAD (peripheral artery disease) I73.9 Allergies ceftriaxone [From Rocephin] Allergy (Verified 03/16/18 11:31) Unknown levofloxacin [From Levaquin] Allergy (Verified 03/16/18 11:31) Unknown rosuvastatin calcium [From Crestor] Adverse Reaction (Verified 03/16/18 11:31) Other muscle aches Home Medications: Ambulatory Orders Medication Instructions Recorded Beta-Glucan, (1-3) (1-4) [Beta 10 mg MC DAILY 03/17/14 Glucan] Cod Liver Oil 750 ml PO DAILY 03/17/14 Furosemide 10 mg PO DAILY PRN PRN 03/17/14 Rivaroxaban [Xarelto] 20 mg PO QHS 03/17/14 Magnesium Oxide [Magnesium] 400 mg PO QHS 08/26/16 Ubidecarenone [Coq10] 100 mg PO DAILY 08/26/16 Metoprolol Succinate [Toprol Xl] 50 mg PO DINNER 01/05/18 Levothyroxine [Synthroid] 75 mcg PO DAILY 03/16/18 Potassium Bicarbonate/Cit AC 20 meq PO DAILY PRN PRN 03/16/18 [Effer-K 10 Meq Tablet Eff] Amoxicillin/Potassium Clav 1 ea PO BID #14 tab 03/17/18 [Augmentin 875-125 Tablet] Quinapril HCl [Accupril] 20 mg PO DAILY #0 03/17/18 Smz/Tmp Ds [Bactrim Ds] 1 tab PO BID #14 tab 03/17/18 Surgical History: pacemaker implantation Psychiatric History: No pertinent psych hx Lives: With Family Smoking Status: Never smoker Tobacco Use: Non-smoker Alcohol: None Drugs: None - *Family History Maternal History Items: Heart Disease Paternal History Items: Heart Disease, Stroke Sibling History Items: Heart Disease, - - Kidney disease Review of Systems Constitutional: Denies: Chills, Fever Cardiovascular: Reports: - - hx of pacemaker Gastrointestinal: Denies: Nausea, Vomiting Musculoskeletal: Reports: Foot Pain - at 1st and 2nd toe ulcer sites right foot Skin: Reports: Wounds - Physical Exam General: Alert, Oriented x3, No apparent distress, Non-Cooperative Extremities: No clubbing, Capillary Refill Less than 3 Seconds, Edema, Peripheral Pulses Normal - strong DP and PT pulses to the right foot. Skin: Ulcer/ Wound - Right dime sized dorsal 1st and 2nd toe ulcerations as anterior right leg - dime sided in diameter, down to the superficial subcutaneous tissue layer, no exposed bone, tendon or joint, there is cellulitis present to the right leg ending just distal to the knee, there is yellow serous drainage from the toe ulcerations site with significant right lower extremity edema. POP directly to the ulceration sites right 1st and 2nd toes, otherwise no other POP or pain on ROM to the rest of the foot/ankle. Sensation appears to be intact to light touch right foot/ankle. Left lower extremity is wrapped with compression praveen bandage, no pain to the left foot/ ankle/leg. Musculoskeletal: No Tenderness to Palpation of Joints or Extremities Psych/Mental Status: Agitated, Alert and oriented to time, place, person, mood and affect Vital Signs Temp Pulse Resp BP Pulse Ox 98.7 F 70 18 122/58 H 92 03/17/18 08:15 03/17/18 08:15 03/17/18 08:15 03/17/18 08:15 03/17/18 09:33 Oxygen Delivery Method Room Air Weight: 89.2 kg Body Mass Index (BMI) 38.6 Intake and Output for Last 24 Hours 03/15/18 03/16/18 03/17/18 23:59 23:59 23:59 Intake Total 471 / 471 456 / 456 Output Total 1350 / 1350 Balance 471 / 471 -894 / -894 Laboratory Tests Past 24 Hrs 03/17/18 03/17/18 06:35 06:35 WBC 9.9 RBC 4.73 Hgb 10.6 L Hct 35.5 L MCV 75.1 L MCH 22.4 L MCHC 29.9 L RDW 20.6 H RDW Differential 56.1 H Plt Count 314 MPV 8.4 Immature Gran % (Auto) 0.100 Neut % (Auto) 69.8 Lymph % (Auto) 19.5 [place] % (Auto) 8.8 Eos % (Auto) 1.6 Baso % (Auto) 0.2 Absolute Neuts (auto) 6.9 Absolute Lymphs (auto) 1.92 Total Counted Not Reportable Differential Comment SCANNED Hypochromasia 1+ Anisocytosis 2+ Microcytosis 1+ Sodium 140 Potassium 3.9 Chloride 100 Carbon Dioxide 30.0 Anion Gap 10 BUN 23 H Creatinine 0.99 Estim Creat Clear Calc 60.63 Est GFR (MDRD) Af Amer 69 Est GFR (MDRD) Non-Af 57 L BUN/Creatinine Ratio 23.3 H Glucose 81 Calcium 8.8 Assessment/Plan All Active Problems (Last Updated 02/09/18 @ 14:09 by Grant Regalado DO) Infected skin ulcer limited to breakdown of skin (Acute) Ulcer of right lower leg (Acute) Cellulitis of right leg (Acute) Staphylococcus aureus infection (Resolved) Right lower extremity cellulitis Ulcer dorsal 1st and 2nd toes down to subcutaneous tissue layer Significant right lower extremity edema Nonadherence/noncompliance with medical care Reviewed findings, and diagnostic data. A culture has already been obtained yesterday at the wound center and results are pending at this time. Patient is on IV antibiotic therapy. Throughout examination and discussion with patient and her daughter who was at bedside patient keeps threatening she is going to leave, she kept requesting for IV to be taken out. Advised patient and her daughter against leaving, recommended staying for proper care of infection and wounds - recommended continued IV antibiotics, follow culture and adjust as needed - along with wound care, and she keep her right foot elevated for at least 50 minutes of every hour. Patient refused, explained risks of nonhealing, worsening wounds, worsening of infection which could ultimately be limb or life threatening. Patient relates she does not care. Patient's daughter is supportive of patient's decision, and is going to take her home today. They understand the risks, and appear willing to take the risks. I did speak with Dr. Butterfield, as well as patient's nursing team at hospital and all have advised patient the same thing to stay in hospital for further care - again patient refused. Today a dressing was Aquacel Ag and overlying gauze, kerlix and praveen dressing was applied. Also a right foot xray was ordered but appears patient left before it could be completed - I recommended she get this as well before she leaves. Spoke with Dr. Butterfield, and patient was prescribed Augmentin and Bactrim for her to go home to cover her infection at this time. It appears patient left AMA before proper discharge instructions could be given to patient and her daughter , with attempts to reach them but unsuccessful.
--- NOTE | 2018-03-17 13:01 | CPS ---
opened incentive but patient refused
--- NOTE | 2018-03-17 13:27 | PCM.DC ---
- Discharge Diagnoses Current Active Problems: Current Active and Chronic Problems (Last Updated 02/09/18 @ 14:09 by Grant Regalado DO) Cellulitis of right leg (Acute) Debility (Chronic) You will use the following diet at home:: Other - 1800 Calorie Controlled Discharge Activity: Return to Normal Activity Call your doctor if you observe: Shortness of breath, Dizziness, Fainting spells, Chest pain Allergies/Adverse Reactions: Allergies ceftriaxone [From Rocephin] Allergy (Verified 03/16/18 11:31) Unknown levofloxacin [From Levaquin] Allergy (Verified 03/16/18 11:31) Unknown rosuvastatin calcium [From Crestor] Adverse Reaction (Verified 03/16/18 11:31) Other muscle aches Medications to take at Discharge Beta-Glucan, (1-3) (1-4) [Beta Glucan] 10 mg MC DAILY 03/17/14 Cod Liver Oil 750 ml PO DAILY 03/17/14 Furosemide 10 mg PO DAILY PRN PRN 03/17/14 Rivaroxaban [Xarelto] 20 mg PO QHS 03/17/14 Magnesium Oxide [Magnesium] 400 mg PO QHS 08/26/16 Ubidecarenone [Coq10] 100 mg PO DAILY 08/26/16 Metoprolol Succinate [Toprol Xl] 50 mg PO DINNER 01/05/18 Levothyroxine [Synthroid] 75 mcg PO DAILY 03/16/18 Potassium Bicarbonate/Cit AC [Effer-K 10 Meq Tablet Eff] 20 meq PO DAILY PRN PRN 03/16/18 Amoxicillin/Potassium Clav [Augmentin 875-125 Tablet] 1 ea PO BID #14 tab 03/17/18 Quinapril HCl [Accupril] 20 mg PO DAILY #0 03/17/18 Smz/Tmp Ds [Bactrim Ds] 1 tab PO BID #14 tab 03/17/18 The following prescriptions were given: Amoxicillin/Potassium Clav [Augmentin 875-125 Tablet] 1 ea PO BID #14 tab Smz/Tmp Ds [Bactrim Ds] 1 tab PO BID #14 tab Primary Care Physician: Daquan Tenorio MD [Primary Care Provider] - Please follow up with your Primary Care Physician in: 3-5 Days Test Results: Test results from this visit will be discussed in further detail at your follow-up appointment, if applicable. Please Follow Up With: Daquan Augustin DPM When: Next week, 3-5 days Please Follow Up With: Wound Center - Please see Dr. Trinidad/Dr. Malave When: Next Week Proposed Discharge Date: 03/17/18
--- NOTE | 2018-03-17 13:31 | DCINST_ITS ---
- Discharge Diagnoses Current Active Problems: Current Active and Chronic Problems (Last Updated 02/09/18 @ 14:09 by Grant Regalado DO) Cellulitis of right leg (Acute) Debility (Chronic) You will use the following diet at home:: Other - 1800 Calorie Controlled Discharge Activity: Return to Normal Activity Call your doctor if you observe: Shortness of breath, Dizziness, Fainting spells , Chest pain Allergies/Adverse Reactions: Allergies ceftriaxone [From Rocephin] Allergy (Verified 03/16/18 11:31) Unknown levofloxacin [From Levaquin] Allergy (Verified 03/16/18 11:31) Unknown rosuvastatin calcium [From Crestor] Adverse Reaction (Verified 03/16/18 11:31) Other muscle aches Medications to take at Discharge Beta-Glucan, (1-3) (1-4) [Beta Glucan] 10 mg MC DAILY 03/17/14 Cod Liver Oil 750 ml PO DAILY 03/17/14 Furosemide 10 mg PO DAILY PRN PRN 03/17/14 Rivaroxaban [Xarelto] 20 mg PO QHS 03/17/14 Magnesium Oxide [Magnesium] 400 mg PO QHS 08/26/16 Ubidecarenone [Coq10] 100 mg PO DAILY 08/26/16 Metoprolol Succinate [Toprol Xl] 50 mg PO DINNER 01/05/18 Levothyroxine [Synthroid] 75 mcg PO DAILY 03/16/18 Potassium Bicarbonate/Cit AC [Effer-K 10 Meq Tablet Eff] 20 meq PO DAILY PRN PRN 03/16/18 Amoxicillin/Potassium Clav [Augmentin 875-125 Tablet] 1 ea PO BID #14 tab Quinapril HCl [Accupril] 20 mg PO DAILY #0 03/17/18 Smz/Tmp Ds [Bactrim Ds] 1 tab PO BID #14 tab 03/17/18 The following prescriptions were given: Amoxicillin/Potassium Clav [Augmentin 875-125 Tablet] 1 ea PO BID #14 tab Smz/Tmp Ds [Bactrim Ds] 1 tab PO BID #14 tab Primary Care Physician: Daquan Tenorio MD [Primary Care Provider] - Please follow up with your Primary Care Physician in: 3-5 Days Test Results: Test results from this visit will be discussed in further detail at your follow- up appointment, if applicable. Please Follow Up With: Daquan Augustin DPM When: Next week, 3-5 days Please Follow Up With: Wound Center - Please see Dr. Trinidad/Dr. Malave When: Next Week Proposed Discharge Date: 03/17/18
--- NOTE | 2018-03-17 13:41 | PCM.DC.SUM ---
Discharge Date and Diagnosis Date of Admission: 03/16/18 Date of Discharge: 03/17/18 - Primary Discharge Diagnosis Active and Suspected Problems (Last Updated 02/09/18 @ 14:09 by Grant Regalado DO) 1. Right lower extremity cellulitis with ulcerations to right anterior first and second toe secondary to peripheral vascular disease 2. 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 Reason for Consult:: RLE 1st and 2nd toe chronic ulcers. Operations: None Procedures: None Summary of Care Provided: The patient is a 82 year old F admitted 03/16/2018 due to right foot wounds, right lower extremity cellulitis. Patient was seen at [facility] emergency room the day before admission and received dose of IV clindamycin. She refused admission to hospital. She was discharged on oral clindamycin with worsening of right lower extremity redness. Patient lives with daughter. She has a past medical history of paroxysmal atrial fibrillation, hypertension, hypothyroidism, peripheral vascular occlusive disease, morbid obesity, status post pacemaker. 1. Right lower extremity cellulitis with ulcerations to right anterior first and second toe secondary to peripheral vascular disease-patient has had recurrent cellulitis of lower extremities. Follows with wound care center. Failed outpatient antibiotic therapy. Hernandez wraps bilateral lower extremities. Elevate bilateral lower extremities. Blood cultures pending. Wound culture drawn from wound center, pending. Previous blood cultures showed staph aureus, raoultella ornithinolytica, enterococcus faecalis. IV vanc and IV zosyn given hx of complicated wound cx. Dr. Augustin evaluated patient. Patient given rx for Augmentin 875 mg p.o. twice daily and Bactrim twice daily, both for 1 week. While beginning discharge instructions, patient signed out AGAINST MEDICAL ADVICE. Strongly encouraged patient to stay for further IV antibiotic therapy and imaging of right foot. Patient was seen by Dr. Aguustin. Recommend follow-up with Dr. Augustin next week. Follow-up with wound center, Dr. Trinidad or Dr. Malave next week. PCP in 3-5 days. 2. Peripheral vascular occlusive disease-follows with wound center. Hernandez wraps bilateral lower extremities. 3. Paroxysmal atrial fibrillation-rate controlled. Continue metoprolol and Xarelto. 4. Chronic DVT, left popliteal-continue Xarelto. Patient refused ultrasound right lower extremity. 5. Hypertension-mildly elevated on admission. Continue home metoprolol regimen. Takes quinapril and furosemide as needed? Continue to monitor blood pressure. 6. Hypothyroidism-continue Synthroid regimen. 7. 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 Chronic kidney disease stage III-stable, continue to monitor. 9. Morbid obesity-encourage diet and lifestyle modifications. General: Alert, Oriented x3, Cooperative HEENT: Atraumatic, PERRLA, EOMI, Normocephalic Neck: Supple, No JVD, Negative Carotid Bruits Lungs: Clear to auscultation, Normal air movement Cardiovascular: Regular rate, No murmurs Abdomen: Bowel Sounds Present, Soft, Non Tender, Non-Distended, Obese Extremities: No clubbing, No cyanosis, Capillary Refill Less than 3 Seconds, Edema - Bilateral lower extremity edema Skin: - - Open ulcers right anterior first and second toe with copious amount of serosanguineous drainage. Redness right lower extremity extending proximally to knee. Musculoskeletal: No Tenderness to Palpation of Joints or Extremities Neurological: Cranial nerves II-XII grossly intact Psych/Mental Status: Normal Affect, Appropriate Patient seen exam prior to discharge. Physical assessment as noted above. Advised patient to stay in hospital for further IV antibiotic therapy, podiatry consultation and imaging of the right foot. Patient insistent on going home and threatened to sign out AMA. Did agree to send patient with oral antibiotic therapy and close follow-up with podiatry, primary care physician, wound center. However, while working on discharge paperwork, patient and daughter signed out AGAINST MEDICAL ADVICE. This patient was seen by TABITHA Mccrary under the supervision of Dr. Butterfield. Discharge Diet: 1800 Calorie Control Diet Discharge Activity: Return to Normal Activity Call your doctor if you observe: Shortness of breath, Dizziness, Fainting spells, Chest pain Home Medications: Medications to take at Discharge Beta-Glucan, (1-3) (1-4) [Beta Glucan] 10 mg MC DAILY 03/17/14 Cod Liver Oil 750 ml PO DAILY 03/17/14 Furosemide 10 mg PO DAILY PRN PRN 03/17/14 Rivaroxaban [Xarelto] 20 mg PO QHS 03/17/14 Magnesium Oxide [Magnesium] 400 mg PO QHS 08/26/16 Ubidecarenone [Coq10] 100 mg PO DAILY 08/26/16 Metoprolol Succinate [Toprol Xl] 50 mg PO DINNER 01/05/18 Levothyroxine [Synthroid] 75 mcg PO DAILY 03/16/18 Potassium Bicarbonate/Cit AC [Effer-K 10 Meq Tablet Eff] 20 meq PO DAILY PRN PRN 03/16/18 Amoxicillin/Potassium Clav [Augmentin 875-125 Tablet] 1 ea PO BID #14 tab 03/17/18 Quinapril HCl [Accupril] 20 mg PO DAILY #0 03/17/18 Smz/Tmp Ds [Bactrim Ds] 1 tab PO BID #14 tab 03/17/18 Following Prescrptions Were Given to Patient: Amoxicillin/Potassium Clav [Augmentin 875-125 Tablet] 1 ea PO BID #14 tab Smz/Tmp Ds [Bactrim Ds] 1 tab PO BID #14 tab Primary Care Physician: Daquan Tenorio MD [Primary Care Provider] - Please follow up with your Primary Care Physician in: 3-5 Days Please Follow Up With: Daquan Augustin DPM When: Next week, 3-5 days Please Follow Up With: Wound Center - Please see Dr. Trinidad/Dr. Malave When: Next Week Disposition: Against Medical Advice Minutes spent on discharge:: 35 Patient Condition:: Fair Medical Necessity - Tobacco Use Smoking Status: Never smoker Tobacco Use: Non-smoker Meaningful Use Info Meaningful Use Diagnoses (Choose all that apply): None applicable
--- NOTE | 2018-03-17 13:46 | DS.PCM_ITS ---
Discharge Date and Diagnosis Date of Admission: 03/16/18 Date of Discharge: 03/17/18 - Primary Discharge Diagnosis Active and Suspected Problems (Last Updated 02/09/18 @ 14:09 by Grant Regalado DO ) 1. Right lower extremity cellulitis with ulcerations to right anterior first and second toe secondary to peripheral vascular disease 2. 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 Reason for Consult:: RLE 1st and 2nd toe chronic ulcers. Operations: None Procedures: None Summary of Care Provided: The patient is a 82 year old F admitted 03/16/2018 due to right foot wounds, right lower extremity cellulitis. Patient was seen at [facility] emergency room the day before admission and received dose of IV clindamycin. She refused admission to hospital. She was discharged on oral clindamycin with worsening of right lower extremity redness. Patient lives with daughter. She has a past medical history of paroxysmal atrial fibrillation, hypertension, hypothyroidism , peripheral vascular occlusive disease, morbid obesity, status post pacemaker. 1. Right lower extremity cellulitis with ulcerations to right anterior first and second toe secondary to peripheral vascular disease-patient has had recurrent cellulitis of lower extremities. Follows with wound care center. Failed outpatient antibiotic therapy. Hernandez wraps bilateral lower extremities. Elevate bilateral lower extremities. Blood cultures pending. Wound culture drawn from wound center, pending. Previous blood cultures showed staph aureus, raoultella ornithinolytica, enterococcus faecalis. IV vanc and IV zosyn given hx of complicated wound cx. Dr. Augustin evaluated patient. Patient given rx for Augmentin 875 mg p.o. twice daily and Bactrim twice daily, both for 1 week. While beginning discharge instructions, patient signed out AGAINST MEDICAL ADVICE. Strongly encouraged patient to stay for further IV antibiotic therapy and imaging of right foot. Patient was seen by Dr. Augustin. Recommend follow- up with Dr. Augustin next week. Follow-up with wound center, Dr. Trinidad or Dr. Malave next week. PCP in 3-5 days. 2. Peripheral vascular occlusive disease-follows with wound center. Hernandez wraps bilateral lower extremities. 3. Paroxysmal atrial fibrillation-rate controlled. Continue metoprolol and Xarelto. 4. Chronic DVT, left popliteal-continue Xarelto. Patient refused ultrasound right lower extremity. 5. Hypertension-mildly elevated on admission. Continue home metoprolol regimen. Takes quinapril and furosemide as needed? Continue to monitor blood pressure. 6. Hypothyroidism-continue Synthroid regimen. 7. 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 Chronic kidney disease stage III-stable, continue to monitor. 9. Morbid obesity-encourage diet and lifestyle modifications. General: Alert, Oriented x3, Cooperative HEENT: Atraumatic, PERRLA, EOMI, Normocephalic Neck: Supple, No JVD, Negative Carotid Bruits Lungs: Clear to auscultation, Normal air movement Cardiovascular: Regular rate, No murmurs Abdomen: Bowel Sounds Present, Soft, Non Tender, Non-Distended, Obese Extremities: No clubbing, No cyanosis, Capillary Refill Less than 3 Seconds, Edema - Bilateral lower extremity edema Skin: - - Open ulcers right anterior first and second toe with copious amount of serosanguineous drainage. Redness right lower extremity extending proximally to knee. Musculoskeletal: No Tenderness to Palpation of Joints or Extremities Neurological: Cranial nerves II-XII grossly intact Psych/Mental Status: Normal Affect, Appropriate Patient seen exam prior to discharge. Physical assessment as noted above. Advised patient to stay in hospital for further IV antibiotic therapy, podiatry consultation and imaging of the right foot. Patient insistent on going home and threatened to sign out AMA. Did agree to send patient with oral antibiotic therapy and close follow-up with podiatry, primary care physician, wound center. However, while working on discharge paperwork, patient and daughter signed out AGAINST MEDICAL ADVICE. This patient was seen by TABITHA Mccrary under the supervision of Dr. Butterfield. Discharge Diet: 1800 Calorie Control Diet Discharge Activity: Return to Normal Activity Call your doctor if you observe: Shortness of breath, Dizziness, Fainting spells , Chest pain Home Medications: Medications to take at Discharge Beta-Glucan, (1-3) (1-4) [Beta Glucan] 10 mg MC DAILY 03/17/14 Cod Liver Oil 750 ml PO DAILY 03/17/14 Furosemide 10 mg PO DAILY PRN PRN 03/17/14 Rivaroxaban [Xarelto] 20 mg PO QHS 03/17/14 Magnesium Oxide [Magnesium] 400 mg PO QHS 08/26/16 Ubidecarenone [Coq10] 100 mg PO DAILY 08/26/16 Metoprolol Succinate [Toprol Xl] 50 mg PO DINNER 01/05/18 Levothyroxine [Synthroid] 75 mcg PO DAILY 03/16/18 Potassium Bicarbonate/Cit AC [Effer-K 10 Meq Tablet Eff] 20 meq PO DAILY PRN PRN 03/16/18 Amoxicillin/Potassium Clav [Augmentin 875-125 Tablet] 1 ea PO BID #14 tab Quinapril HCl [Accupril] 20 mg PO DAILY #0 03/17/18 Smz/Tmp Ds [Bactrim Ds] 1 tab PO BID #14 tab 03/17/18 Following Prescrptions Were Given to Patient: Amoxicillin/Potassium Clav [Augmentin 875-125 Tablet] 1 ea PO BID #14 tab Smz/Tmp Ds [Bactrim Ds] 1 tab PO BID #14 tab Primary Care Physician: Daquan Tenorio MD [Primary Care Provider] - Please follow up with your Primary Care Physician in: 3-5 Days Please Follow Up With: Daquan Augustin DPM When: Next week, 3-5 days Please Follow Up With: Wound Center - Please see Dr. Trinidad/Dr. Malave When: Next Week Disposition: Against Medical Advice Minutes spent on discharge:: 35 Patient Condition:: Fair Medical Necessity - Tobacco Use Smoking Status: Never smoker Tobacco Use: Non-smoker Meaningful Use Info Meaningful Use Diagnoses (Choose all that apply): None applicable
--- NOTE | 2018-03-17 13:49 | NURSING ---
pt demanding AMA paperwork so she can leave. Family in room to provide transportation for pt. This RN spoke with primary RN and completed paperwork with pt.
--- NOTE | 2018-03-17 13:53 | NURSING ---
This RN removed IV when documenting wrong date was saved to chart and unable to edit it.
--- NOTE | 2018-03-17 13:57 | CASEMGMT ---
SOCIAL WORK: Nursing with patient so this SW met with daughter, Michelle, in therapy room which was unoccupied. Introduced self and SW role at [facility] for this date. Daughter identified desire for group home and home PT and reports plan is for patient to return home with her. Further needs denied and no further issues. After meeting with daughter this SW was informed that patient signed out against medical advice (AMA) and that daughter was supportive of patient decision. This SW then saw them leaving with staff escort. SW attempted phone contact with daughter however phone number listed is not a cell number but is a home number; voice mail message left to explain that a HHC referral cannot be made due to AMA status and recommended that daughter call patient PCP on Monday to discuss referral for HHC. RAMAN Daniels
== END 2018-03-17 13:43 | disposition left against medical advice (07) | DRG 603 ==
LOC: ED 14:42 → MS3 14:53
PROVIDERS: Admitting Provider Family Medicine; Emergency Provider Emergency Medicine; Family Provider Family Medicine; PCP Family Medicine; Visit Provider Family Medicine
DX: L03.115 Cellulitis of right lower limb (principal); L97.518 Non-pressure chronic ulcer of other part of right foot with other specified severity; Z95.0 Presence of cardiac pacemaker; E03.9 Hypothyroidism, unspecified; D64.9 Anemia, unspecified; E66.01 Morbid (severe) obesity due to excess calories; Z68.38 Body mass index [BMI] 38.0-38.9, adult; I87.8 Other specified disorders of veins; I89.0 Lymphedema, not elsewhere classified; I87.2 Venous insufficiency (chronic) (peripheral)
CPT/HCPCS: 36415; 80048; 80053; 82728; 83540; 83550; 83605; 83735; 85025; 87040; 87070; 87075; 87205; 99283; J7040; J7050; A4216; J1940

== ENCOUNTER 2018-03-30 10:30 | Outpatient (RCR) | payer MEDICARE, MEDICAID, SELFPAY ==
[2018-03-03 01:22] VITALS: BP 160/85; PULSE 78; RESP 18; TEMP 36.5
[2018-03-16 10:30] VITALS: BP 146/77; PULSE 82; RESP 16; TEMP 37.3
--- NOTE | 2018-03-16 11:53 | PN.PCM_ITS ---
(1) Cellulitis of right leg Status: Acute Current Visit: Yes Code(s): L03.115 - Cellulitis of right lower limb (2) Open wound of foot excluding toes Status: Acute Current Visit: Yes Code(s): S91.309A - Unspecified open wound , unspecified foot, initial encounter (3) Debility Status: Acute Current Visit: Yes Code(s): R53.81 - Other malaise (4) Difficulty walking down slope Status: Acute Current Visit: No Code(s): R26.2 - Difficulty in walking, not elsewhere classified (5) Infected skin ulcer limited to breakdown of skin Status: Acute Current Visit: No Code(s): L98.491 - Non-pressure chronic ulcer of skin of other sites limited to breakdown of skin (6) Non-healing non-surgical wound Status: Acute Current Visit: No Code(s): T14.8 - Other injury of unspecified body region Type of Wound Date of Service: 03/16/18 Chief Complaint: Open ulcers right anterior first and second toe History of Wound: 82-year-old white female who came to us with open ulcers of the right and second toe. This is been going on for at least a month. Patient has history of peripheral vascular disease and has been hospitalized approximately twice for cellulitis infections of the lower extremities. The edema in the left leg is completely gone coloring looks good no open sores. The right leg is very edematous to the knee with cellulitis apparent and erythematous darkened erythematous spots going up her leg. Patient ask malaise and fevered and chilled. Patient was seen in the emergency room yesterday and was placed on clindamycin orally to be taken 4 times a day. Daughter who takes care of her states they did do 2 IVs of antibiotics unknown. No cultures of blood or anything was obtained. Today we will obtain cultures of the ulcers and patient will be sent over to the emergency room for reevaluation and possible admission for her cellulitis fever sepsis. Progress of Wound: Today the superficial blistering openings of the bilateral lower legs are much improved about half the size they were last week. Continue with Xeroform dressings for healing. 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 Patient is already on Xarelto. Patient had an appointment with Dr. Josue and he wants to follow-up again in 6 months and gave her prescription for new compression stockings. He would like to first get her ulcers healed before he does anything. Her toes are superficial all of her wounds are superficial and filling in nicely - Physical Exam Vital Signs Temp Pulse Resp BP 99.1 F 82 16 146/77 H 03/16/18 10:30 03/16/18 10:30 03/16/18 10:30 03/16/18 10:30 General: Oriented x3, Cooperative, Well developed HEENT: Atraumatic, PERRLA Oral: Moist Mucosa Neck: Supple, No JVD Lungs: Clear to auscultation, Normal air movement Cardiovascular: Regular rate, Regular Rhythm Abdomen: Bowel Sounds Present, Soft, Non Tender, No Hepato-splenomegaly Extremities: No clubbing, No edema Skin: Ulcer/ Wound - Open ulcers first and second toe Wound Measurements and Assessment WC - Nurse 1 - General Ulcer Measurement Start: 03/16/18 10:30 Freq: Status: Active Protocol: Activity Type Activity Date Activity User E-Sign Co-Sign Detail Recorded Client Recorded Date Recorded By Document 03/16/18 10:30 [id number] 03/16/18 10:39 03/16/18 10:30 Wound Center Nurse 1 [Ulcer Assessment] #15 right second toe -Combined with other wound No -Current Size (cm) - Length 1.5 -Current Size (cm) - Width 1.6 -Current Size (cm) - Depth 0.1 -Total Square Cm 2.40 -Date of Last Picture (Recall this 03/16/18 field) -Photo Taken Yes -Epithelialization Medium 34-66% -Tunneling No -Undermining/Tunneling No -Circular Undermining No -Wound Margin Distinct, Outline Attached -Moisture (Alexandra-wound Skin Appearance Weeping ) -Temperature (Alexandra-wound Skin No Abnormality Appearance) (Pt Warm) -Tenderness on Palpation (Alexandra-wound Yes Skin Appearance) -Ulcer Cleansing Rinsed/ Irrigated with Saline -Foul Odor after Cleansing No -Anesthetic Used 4% Lidocaine Solution #14 right great toe -Combined with other wound No -Current Size (cm) - Length 1.2 -Current Size (cm) - Width 1.4 -Current Size (cm) - Depth 0.1 -Total Square Cm 1.68 -Date of Last Picture (Recall this 03/16/18 field) -Photo Taken Yes -Epithelialization Medium 34-66% -Tunneling No -Undermining/Tunneling No -Circular Undermining No -Moisture (Alexandra-wound Skin Appearance Weeping ) -Temperature (Alexandra-wound Skin No Abnormality Appearance) (Pt Warm) -Tenderness on Palpation (Alexandra-wound Yes Skin Appearance) -Ulcer Cleansing Rinsed/ Irrigated with Saline -Foul Odor after Cleansing No -Anesthetic Used 4% Lidocaine Solution [Edema Assessment] -Lower Limb Edema Present Yes -Right Calf (cm) 48 -Right Ankle (cm) 29 -Left Calf (cm) 39 -Left Ankle (cm) 25.5 WC - Nurse 2 - General Ulcer CM Notes Start: 03/16/18 10:30 Freq: Status: Active Protocol: Activity Type Activity Date Activity User E-Sign Co-Sign Detail Recorded Client Recorded Date Recorded By Document 03/16/18 10:47 MW [id number] 03/16/18 10:54 MW 03/16/18 10:47 Wound Center Nurse 2 [Procedure/Treatment] #15 right second toe -Time 10:48 -Correct Patient Yes -Correct Side, Site, Position Yes -Correct Procedure Yes -Procedure Performed Yes -Type of Procedure Debridement -Clinical Debridement Subcutaneous -Post Debridement Size (cm) - Length 1.4 -Post Debridement Size (cm) - Width 1.5 -Post Debridement Size (cm) - Depth 0.1 -Total Square Cm 2.10 -Wound/Ulcer Outcome Not Healed -Ulcer Cleansing Rinsed/ Irrigated with Saline -Foul Odor after Cleansing No -Bioengineered Tissue No -Bleeding Controlled with Pressure -Treatment Response Procedure Tolerated Well #14 right great toe -Time 10:48 -Correct Patient Yes -Correct Side, Site, Position Yes -Correct Procedure Yes -Procedure Performed Yes -Type of Procedure Debridement -Clinical Debridement Subcutaneous -Post Debridement Size (cm) - Length 0.9 -Post Debridement Size (cm) - Width 0.6 -Post Debridement Size (cm) - Depth 0.1 -Total Square Cm 0.54 -Wound/Ulcer Outcome Not Healed -Ulcer Cleansing Rinsed/ Irrigated with Saline -Foul Odor after Cleansing No -Bioengineered Tissue No -Bleeding Controlled with Pressure -Treatment Response Procedure Tolerated Well [See Physician Procedure note for Specifics] Pain Scale: 0-10 Numeric [Pain] -Is Patient Pain Free? Yes Musculoskeletal: No Tenderness to Palpation of Joints or Extremities Lymphatic: No Cervical, Supraclavicular, or Inguinal Adenopathy Neurological: Cranial nerves II-XII grossly intact, Neuro grossly intact Psych/Mental Status: Normal Affect, Appropriate Debridement Note Post-Debridement Measurements/Treatment WC - Nurse 2 - General Ulcer CM Notes Start: 03/16/18 10:30 Freq: Status: Active Protocol: Activity Type Activity Date Activity User E-Sign Co-Sign Detail Recorded Client Recorded Date Recorded By Document 03/16/18 10:47 MW [id number] 03/16/18 10:54 MW 03/16/18 10:47 Wound Center Nurse 2 #15 right second toe -Time 10:48 -Correct Patient Yes -Correct Side, Site, Position Yes -Correct Procedure Yes -Procedure Performed Yes -Type of Procedure Debridement -Clinical Debridement Subcutaneous -Post Debridement Size (cm) - Length 1.4 -Post Debridement Size (cm) - Width 1.5 -Post Debridement Size (cm) - Depth 0.1 -Total Square Cm 2.10 -Wound/Ulcer Outcome Not Healed -Ulcer Cleansing Rinsed/ Irrigated with Saline -Foul Odor after Cleansing No -Bioengineered Tissue No -Bleeding Controlled with Pressure -Treatment Response Procedure Tolerated Well #14 right great toe -Time 10:48 -Correct Patient Yes -Correct Side, Site, Position Yes -Correct Procedure Yes -Procedure Performed Yes -Type of Procedure Debridement -Clinical Debridement Subcutaneous -Post Debridement Size (cm) - Length 0.9 -Post Debridement Size (cm) - Width 0.6 -Post Debridement Size (cm) - Depth 0.1 -Total Square Cm 0.54 -Wound/Ulcer Outcome Not Healed -Ulcer Cleansing Rinsed/ Irrigated with Saline -Foul Odor after Cleansing No -Bioengineered Tissue No -Bleeding Controlled with Pressure -Treatment Response Procedure Tolerated Well Pain Scale: 0-10 Numeric Is Patient Pain Free? Yes Wound debrided: Right great toe ulcer Type of Debridement: Excisional debridement Anesthesia Used: 5% Lidocaine Gel Depth: Down to and including healthy tissue Percentage of wound debrided: 100 Instrument Used: 3mm curette Tissue Removed: Slough and fibrin - Additional Wound Wound debrided: Right second toe anterior Type of Debridement: Excisional debridement Anesthesia Used: 5% Lidocaine Gel Depth: Down to and including healthy tissue Percentage of wound debrided: 100 Instrument Used: 3mm curette Tissue Removed: Slough Amount of bleeding with debridement: Mild Bleeding Controlled with: Pressure Assessment/Plan Cultures obtained from right second toe Active Problems (Last Updated 02/09/18 @ 14:09 by Grant Regalado DO) Cellulitis of right leg (Acute) Open wound of foot excluding toes (Acute) Debility (Acute) Assessment: Colitis of the right leg. Edema of the right leg. Open ulcers right and second toe anterior l. Morbid obesity. Pacemaker. Peripheral vascular occlusive disease. Renal insufficiency Plan: Wash the legs with Hibiclens. Apply was cell silver to both toes moistened gauze tape. Apply gauze between toes. Continue to compress with Hernandez wraps. Follow-up one week
[2018-03-23 10:39] VITALS: BP 140/84; PULSE 84; RESP 18; TEMP 36.2
--- NOTE | 2018-03-23 11:31 | PCM.WC.PN ---
(1) Cellulitis of right leg Status: Acute Current Visit: No Code(s): L03.115 - Cellulitis of right lower limb (2) Open wound of foot excluding toes Status: Deleted Current Visit: Yes Code(s): S91.309A - Unspecified open wound, unspecified foot, initial encounter (3) Debility Status: Chronic Current Visit: No Code(s): R53.81 - Other malaise (4) Difficulty walking down slope Status: Deleted Current Visit: No Code(s): R26.2 - Difficulty in walking, not elsewhere classified (5) Infected skin ulcer limited to breakdown of skin Status: Acute Current Visit: No Code(s): L98.491 - Non-pressure chronic ulcer of skin of other sites limited to breakdown of skin (6) Non-healing non-surgical wound Status: Deleted Current Visit: No Code(s): T14.8 - Other injury of unspecified body region Type of Wound Date of Service: 03/23/18 Chief Complaint: Open ulcers right anterior first and second toe History of Wound: 82-year-old white female who came to us with open ulcers of the right and second toe. This is been going on for at least a month. Patient has history of peripheral vascular disease and has been hospitalized approximately twice for cellulitis infections of the lower extremities. The edema in the left leg is completely gone coloring looks good no open sores. The right leg is very edematous to the knee with cellulitis apparent and erythematous darkened erythematous spots going up her leg. Patient ask malaise and fevered and chilled. Patient was seen in the emergency room yesterday and was placed on clindamycin orally to be taken 4 times a day. Daughter who takes care of her states they did do 2 IVs of antibiotics unknown. No cultures of blood or anything was obtained. Today we will obtain cultures of the ulcers and patient will be sent over to the emergency room for reevaluation and possible admission for her cellulitis fever sepsis. Progress of Wound: Patient is already on Xarelto. Her toes are superficial 0.1 on right great toe and right second toe. Healing well with the Aquacel silver cellulitis in her leg is better we are switching antibiotics though because of the cultures that we obtained last week. - Physical Exam Vital Signs Temp Pulse Resp BP 97.1 F L 84 18 140/84 H 03/23/18 10:39 03/23/18 10:39 03/23/18 10:39 03/23/18 10:39 General: Oriented x3, Cooperative, Well developed HEENT: Atraumatic, PERRLA Oral: Moist Mucosa Neck: Supple, No JVD Lungs: Clear to auscultation, Normal air movement Cardiovascular: Regular rate, Regular Rhythm Abdomen: Bowel Sounds Present, Soft, Non Tender, No Hepato-splenomegaly Extremities: No clubbing, Edema Skin: Ulcer/ Wound - Open wounds right great toe and right second toe Wound Measurements and Assessment WC - Nurse 1 - General Ulcer Measurement Start: 03/16/18 10:30 Freq: Status: Active Protocol: Activity Type Activity Date Activity User E-Sign Co-Sign Detail Recorded Client Recorded Date Recorded By Document 03/23/18 10:39 DL [id number] 03/23/18 10:46 DL 03/23/18 10:39 Wound Center Nurse 1 [Ulcer Assessment] #15 right second toe -Current Size (cm) - Length 1.1 -Current Size (cm) - Width 1.3 -Current Size (cm) - Depth 0.1 -Total Square Cm 1.43 -Photo Taken No -Exudate Amt Small (1-33%) -Exudate Type Serosanguineous -Wound Margin Distinct, Outline Attached -Granulation Amt None Present (0 %) -Granulation Quality Red -Necrosis Amt Large (67-100%) -Necrotic Tissue Type Adherent Slough -Structure Exposed N/A -Texture (Alexandra-wound Skin Appearance) Localized Edema Scarring -Moisture (Alexandra-wound Skin Appearance No Abnormality ) -Color (Alexandra-wound Skin Appearance) Hemosiderin Staining Rubor -Temperature (Alexandra-wound Skin No Abnormality Appearance) (Pt Warm) -Tenderness on Palpation (Alexandra-wound No Skin Appearance) -Ulcer Cleansing Wound Cleanser -Foul Odor after Cleansing No -Anesthetic Used 4% Lidocaine Solution #14 right great toe -Current Size (cm) - Length 0.1 -Current Size (cm) - Width 0.1 -Current Size (cm) - Depth 0.1 -Total Square Cm 0.01 -Photo Taken No -Exudate Amt None Present (0 %) -Wound Margin Flat & Intact -Granulation Amt Large (67-100%) -Granulation Quality [place] -Necrosis Amt None Present (0 %) -Structure Exposed N/A -Texture (Alexandra-wound Skin Appearance) Scarring -Moisture (Alexandra-wound Skin Appearance No Abnormality ) -Color (Alexandra-wound Skin Appearance) Erythema Hemosiderin Staining Rubor [Edema Assessment] -Right Calf (cm) 43 -Right Ankle (cm) 27 -Left Calf (cm) 38.5 -Left Ankle (cm) 24 WC - Nurse 2 - General Ulcer CM Notes Start: 03/16/18 10:30 Freq: Status: Active Protocol: Activity Type Activity Date Activity User E-Sign Co-Sign Detail Recorded Client Recorded Date Recorded By Document 03/23/18 10:58 MW [id number] 03/23/18 11:00 MW 03/23/18 10:58 Wound Center Nurse 2 [Procedure/Treatment] #15 right second toe -Time 10:58 -Correct Patient Yes -Correct Side, Site, Position Yes -Correct Procedure Yes -Procedure Performed Yes -Type of Procedure Debridement -Clinical Debridement Subcutaneous -Post Debridement Size (cm) - Length 0.7 -Post Debridement Size (cm) - Width 0.8 -Post Debridement Size (cm) - Depth 0.1 -Total Square Cm 0.56 -Wound/Ulcer Outcome Not Healed -Ulcer Cleansing Rinsed/ Irrigated with Saline -Foul Odor after Cleansing No -Bioengineered Tissue No -Bleeding Controlled with Pressure -Treatment Response Procedure Tolerated Well #14 right great toe -Time 10:59 -Correct Patient Yes -Correct Side, Site, Position Yes -Correct Procedure Yes -Procedure Performed Yes -Type of Procedure Debridement -Clinical Debridement Subcutaneous -Post Debridement Size (cm) - Length 0.7 -Post Debridement Size (cm) - Width 0.4 -Post Debridement Size (cm) - Depth 0.1 -Total Square Cm 0.28 -Wound/Ulcer Outcome Not Healed -Ulcer Cleansing Rinsed/ Irrigated with Saline -Foul Odor after Cleansing No -Bioengineered Tissue No -Bleeding Controlled with Pressure -Treatment Response Procedure Tolerated Well [See Physician Procedure note for Specifics] Pain Scale: 0-10 Numeric [Pain] -Is Patient Pain Free? Yes Musculoskeletal: No Tenderness to Palpation of Joints or Extremities Lymphatic: No Cervical, Supraclavicular, or Inguinal Adenopathy Neurological: Cranial nerves II-XII grossly intact, Neuro grossly intact Psych/Mental Status: Normal Affect, Appropriate Debridement Note Post-Debridement Measurements/Treatment - Nurse 2 - General Ulcer CM Notes Start: 03/16/18 10:30 Freq: Status: Active Protocol: Activity Type Activity Date Activity User E-Sign Co-Sign Detail Recorded Client Recorded Date Recorded By Document 03/16/18 10:47 MW [id number] 03/16/18 10:54 MW Document 03/23/18 10:58 MW [id number] 03/23/18 11:00 MW 03/16/18 03/23/18 10:47 10:58 Wound Center Nurse 2 #15 right second toe -Time 10:48 10:58 -Correct Patient Yes Yes -Correct Side, Site, Position Yes Yes -Correct Procedure Yes Yes -Procedure Performed Yes Yes -Type of Procedure Debridement Debridement -Clinical Debridement Subcutaneous Subcutaneous -Post Debridement Size (cm) - Length 1.4 0.7 -Post Debridement Size (cm) - Width 1.5 0.8 -Post Debridement Size (cm) - Depth 0.1 0.1 -Total Square Cm 2.10 0.56 -Wound/Ulcer Outcome Not Healed Not Healed -Ulcer Cleansing Rinsed/ Rinsed/ Irrigated with Irrigated with Saline Saline -Foul Odor after Cleansing No No -Bioengineered Tissue No No -Bleeding Controlled with Pressure Pressure -Treatment Response Procedure Procedure Tolerated Well Tolerated Well #14 right great toe -Time 10:48 10:59 -Correct Patient Yes Yes -Correct Side, Site, Position Yes Yes -Correct Procedure Yes Yes -Procedure Performed Yes Yes -Type of Procedure Debridement Debridement -Clinical Debridement Subcutaneous Subcutaneous -Post Debridement Size (cm) - Length 0.9 0.7 -Post Debridement Size (cm) - Width 0.6 0.4 -Post Debridement Size (cm) - Depth 0.1 0.1 -Total Square Cm 0.54 0.28 -Wound/Ulcer Outcome Not Healed Not Healed -Ulcer Cleansing Rinsed/ Rinsed/ Irrigated with Irrigated with Saline Saline -Foul Odor after Cleansing No No -Bioengineered Tissue No No -Bleeding Controlled with Pressure Pressure -Treatment Response Procedure Procedure Tolerated Well Tolerated Well Pain Scale: 0-10 Numeric Is Patient Pain Free? Yes Yes Wound debrided: Great toe Laterality: Right Type of Debridement: Excisional debridement Anesthesia Used: 5% Lidocaine Gel Depth: Down to and including healthy tissue, in the subcutaneous layer Percentage of wound debrided: 100 Instrument Used: 3mm curette Tissue Removed: Fibrin Severity: Limited To Skin Breakdown Amount of bleeding with debridement: Mild Bleeding Controlled with: Pressure Patient tolerated procedure well - Additional Wound Wound debrided: Right second toe Type of Debridement: Excisional debridement Anesthesia Used: 5% Lidocaine Gel Depth: Down to and including healthy tissue Percentage of wound debrided: 100 Instrument Used: 3mm curette Tissue Removed: Fibrin Severity: Limited To Skin Breakdown Amount of bleeding with debridement: Mild Bleeding Controlled with: Pressure Patient tolerated procedure: Patient tolerated procedure well Assessment/Plan Assessment: Edema of the right leg. Open wounds right and second toe anterior l. Morbid obesity. Pacemaker. Peripheral vascular occlusive disease. Renal insufficiency Plan: Wash the legs with Hibiclens. Apply Aquacel silver to both toes moistened gauze tape. Apply gauze between toes. Continue to compress with Hernandez wraps. Start metronidazole and ciprofloxacin discontinue other antibiotics. Follow-up one week
[2018-03-30 10:45] VITALS: BP 138/88; PULSE 72; RESP 16; TEMP 36.2
--- NOTE | 2018-03-30 11:57 | PCM.WC.PN ---
(1) Cellulitis of right leg Status: Acute Current Visit: No Code(s): L03.115 - Cellulitis of right lower limb (2) Open wound of foot excluding toes Status: Deleted Current Visit: Yes Code(s): S91.309A - Unspecified open wound, unspecified foot, initial encounter (3) Debility Status: Chronic Current Visit: Yes Code(s): R53.81 - Other malaise (4) Difficulty walking down slope Status: Deleted Current Visit: Yes Code(s): R26.2 - Difficulty in walking, not elsewhere classified (5) Infected skin ulcer limited to breakdown of skin Status: Acute Current Visit: Yes Code(s): L98.491 - Non-pressure chronic ulcer of skin of other sites limited to breakdown of skin (6) Non-healing non-surgical wound Status: Deleted Current Visit: Yes Code(s): T14.8 - Other injury of unspecified body region Type of Wound Chief Complaint: Open ulcers right anterior first and second toe History of Wound: 82-year-old white female who came to us with open ulcers of the right and second toe. This is been going on for at least a month. Patient has history of peripheral vascular disease and has been hospitalized approximately twice for cellulitis infections of the lower extremities. The edema in the left leg is completely gone coloring looks good no open sores. The right leg is very edematous to the knee with cellulitis apparent and erythematous darkened erythematous spots going up her leg. Patient ask malaise and fevered and chilled. Patient was seen in the emergency room yesterday and was placed on clindamycin orally to be taken 4 times a day. Daughter who takes care of her states they did do 2 IVs of antibiotics unknown. No cultures of blood or anything was obtained. Today we will obtain cultures of the ulcers and patient will be sent over to the emergency room for reevaluation and possible admission for her cellulitis fever sepsis. Progress of Wound: Patient is already on Xarelto. Her toes are superficial 0.1 on right great toe and right second toe. Healing well with the Aquacel silver cellulitis in her leg is better we are switching antibiotics though because of the cultures that we obtained last week. Both toes are basically covered with skin will follow up 1 more week to make sure there closed she is continued just dry dressings on top and follow-up in 1 week - Physical Exam Vital Signs Temp Pulse Resp BP 97.1 F L 72 16 138/88 H 03/30/18 10:45 03/30/18 10:45 03/30/18 10:45 03/30/18 10:45 General: Oriented x3, Cooperative, Well developed HEENT: Atraumatic, PERRLA Oral: Moist Mucosa Neck: Supple, No JVD Lungs: Clear to auscultation, Normal air movement Cardiovascular: Regular rate, Regular Rhythm Abdomen: Bowel Sounds Present, Soft, Non Tender, No Hepato-splenomegaly Extremities: No clubbing, Edema Wound Measurements and Assessment WC - Nurse 1 - General Ulcer Measurement Start: 03/16/18 10:30 Freq: Status: Active Protocol: Activity Type Activity Date Activity User E-Sign Co-Sign Detail Recorded Client Recorded Date Recorded By Document 03/30/18 10:45 [facility] [id number] 03/30/18 10:49 [facility] 03/30/18 10:45 Wound Center Nurse 1 [Ulcer Assessment] #15 right second toe -Combined with other wound No -Current Size (cm) - Length 1 -Current Size (cm) - Width 1.4 -Current Size (cm) - Depth 0.1 -Total Square Cm 1.4 -Photo Taken No -Epithelialization None Present -Tunneling No -Undermining/Tunneling No -Circular Undermining No -Exudate Amt None Present (0 %) -Wound Margin Distinct, Outline Attached -Granulation Amt None Present (0 %) -Slough/Fibrin Yes -Necrosis Amt Large (67-100%) -Necrotic Tissue Type Adherent Slough -Structure Exposed N/A -Texture (Alexandra-wound Skin Appearance) Scarring -Moisture (Alexandra-wound Skin Appearance Dry/Scaly ) -Color (Alexandra-wound Skin Appearance) Assessed -Temperature (Alexandra-wound Skin No Abnormality Appearance) (Pt Warm) -Tenderness on Palpation (Alexandra-wound No Skin Appearance) -Ulcer Cleansing Rinsed/ Irrigated with Saline -Foul Odor after Cleansing No -Anesthetic Used 4% Lidocaine Solution #14 right great toe -Combined with other wound No -Current Size (cm) - Length 1.1 -Current Size (cm) - Width 0.3 -Current Size (cm) - Depth 0.1 -Total Square Cm 0.33 -Photo Taken No -Epithelialization None Present -Tunneling No -Undermining/Tunneling No -Circular Undermining No -Exudate Amt None Present (0 %) -Wound Margin Distinct, Outline Attached -Granulation Amt None Present (0 %) -Slough/Fibrin Yes -Necrosis Amt Large (67-100%) -Necrotic Tissue Type Adherent Slough -Structure Exposed N/A -Texture (Alexandra-wound Skin Appearance) Scarring -Moisture (Alexandra-wound Skin Appearance Dry/Scaly ) -Color (Alexandra-wound Skin Appearance) Assessed -Temperature (Alexandra-wound Skin No Abnormality Appearance) (Pt Warm) -Tenderness on Palpation (Alexandra-wound No Skin Appearance) -Ulcer Cleansing Rinsed/ Irrigated with Saline -Foul Odor after Cleansing No -Anesthetic Used 4% Lidocaine Solution [Edema Assessment] -Lower Limb Edema Present Yes -Right Calf (cm) 46.5 -Right Ankle (cm) 27.2 WC - Nurse 2 - General Ulcer CM Notes Start: 03/16/18 10:30 Freq: Status: Active Protocol: Activity Type Activity Date Activity User E-Sign Co-Sign Detail Recorded Client Recorded Date Recorded By Document 03/30/18 11:18 MW [id number] 03/30/18 11:21 MW 03/30/18 11:18 Wound Center Nurse 2 [Procedure/Treatment] #15 right second toe -Time 11:18 -Correct Patient Yes -Correct Side, Site, Position Yes -Correct Procedure Yes -Procedure Performed Yes -Type of Procedure Debridement -Clinical Debridement Selective -Post Debridement Size (cm) - Length 0.1 -Post Debridement Size (cm) - Width 0.1 -Post Debridement Size (cm) - Depth 0.1 -Total Square Cm 0.01 -Wound/Ulcer Outcome Not Healed -Ulcer Cleansing Rinsed/ Irrigated with Saline -Foul Odor after Cleansing No -Bioengineered Tissue No -Bleeding Controlled with Pressure -Treatment Response Procedure Tolerated Well #14 right great toe -Time 11:18 -Correct Patient Yes -Correct Side, Site, Position Yes -Correct Procedure Yes -Procedure Performed Yes -Type of Procedure Debridement -Clinical Debridement Selective -Post Debridement Size (cm) - Length 0.1 -Post Debridement Size (cm) - Width 0.1 -Post Debridement Size (cm) - Depth 0.1 -Total Square Cm 0.01 -Wound/Ulcer Outcome Not Healed -Ulcer Cleansing Rinsed/ Irrigated with Saline -Foul Odor after Cleansing No -Bioengineered Tissue No -Bleeding Controlled with Pressure -Treatment Response Procedure Tolerated Well [See Physician Procedure note for Specifics] Pain Scale: 0-10 Numeric [Pain] -Is Patient Pain Free? Yes Musculoskeletal: No Tenderness to Palpation of Joints or Extremities Lymphatic: No Cervical, Supraclavicular, or Inguinal Adenopathy Neurological: Cranial nerves II-XII grossly intact, Neuro grossly intact Psych/Mental Status: Normal Affect, Appropriate Debridement Note Post-Debridement Measurements/Treatment WC - Nurse 2 - General Ulcer CM Notes Start: 03/16/18 10:30 Freq: Status: Active Protocol: Activity Type Activity Date Activity User E-Sign Co-Sign Detail Recorded Client Recorded Date Recorded By Document 03/16/18 10:47 MW [id number] 03/16/18 10:54 MW Document 03/23/18 10:58 MW [id number] 03/23/18 11:00 MW Document 03/30/18 11:18 MW [id number] 03/30/18 11:21 MW 03/16/18 03/23/18 03/30/18 10:47 10:58 11:18 Wound Center Nurse 2 #15 right second toe -Time 10:48 10:58 11:18 -Correct Patient Yes Yes Yes -Correct Side, Site, Position Yes Yes Yes -Correct Procedure Yes Yes Yes -Procedure Performed Yes Yes Yes -Type of Procedure Debridement Debridement Debridement -Clinical Debridement Subcutaneous Subcutaneous Selective -Post Debridement Size (cm) - Length 1.4 0.7 0.1 -Post Debridement Size (cm) - Width 1.5 0.8 0.1 -Post Debridement Size (cm) - Depth 0.1 0.1 0.1 -Total Square Cm 2.10 0.56 0.01 -Wound/Ulcer Outcome Not Healed Not Healed Not Healed -Ulcer Cleansing Rinsed/ Rinsed/ Rinsed/ Irrigated with Irrigated with Irrigated with Saline Saline Saline -Foul Odor after Cleansing No No No -Bioengineered Tissue No No No -Bleeding Controlled with Pressure Pressure Pressure -Treatment Response Procedure Procedure Procedure Tolerated Well Tolerated Well Tolerated Well #14 right great toe -Time 10:48 10:59 11:18 -Correct Patient Yes Yes Yes -Correct Side, Site, Position Yes Yes Yes -Correct Procedure Yes Yes Yes -Procedure Performed Yes Yes Yes -Type of Procedure Debridement Debridement Debridement -Clinical Debridement Subcutaneous Subcutaneous Selective -Post Debridement Size (cm) - Length 0.9 0.7 0.1 -Post Debridement Size (cm) - Width 0.6 0.4 0.1 -Post Debridement Size (cm) - Depth 0.1 0.1 0.1 -Total Square Cm 0.54 0.28 0.01 -Wound/Ulcer Outcome Not Healed Not Healed Not Healed -Ulcer Cleansing Rinsed/ Rinsed/ Rinsed/ Irrigated with Irrigated with Irrigated with Saline Saline Saline -Foul Odor after Cleansing No No No -Bioengineered Tissue No No No -Bleeding Controlled with Pressure Pressure Pressure -Treatment Response Procedure Procedure Procedure Tolerated Well Tolerated Well Tolerated Well Pain Scale: 0-10 Numeric Is Patient Pain Free? Yes Yes Yes No debridement was completed today Assessment/Plan Active Problems (Last Updated 02/09/18 @ 14:09 by Grant Regalado DO) Infected skin ulcer limited to breakdown of skin (Acute) Debility (Chronic) Assessment: Edema of the right leg. Open wounds right and second toe anterior l. Morbid obesity. Pacemaker. Peripheral vascular occlusive disease. Renal insufficiency Plan: Wash the legs with Hibiclens. Dry gauze dressings to both toes. Apply gauze between toes. Continue to compress with Hernandez wraps. Start metronidazole and ciprofloxacin discontinue other antibiotics. Follow-up one week
--- NOTE | 2018-03-30 12:00 | PN.PCM_ITS ---
(1) Cellulitis of right leg Status: Acute Current Visit: No Code(s): L03.115 - Cellulitis of right lower limb (2) Open wound of foot excluding toes Status: Deleted Current Visit: Yes Code(s): S91.309A - Unspecified open wound, unspecified foot, initial encounter (3) Debility Status: Chronic Current Visit: Yes Code(s): R53.81 - Other malaise (4) Difficulty walking down slope Status: Deleted Current Visit: Yes Code(s): R26.2 - Difficulty in walking, not elsewhere classified (5) Infected skin ulcer limited to breakdown of skin Status: Acute Current Visit: Yes Code(s): L98.491 - Non-pressure chronic ulcer of skin of other sites limited to breakdown of skin (6) Non-healing non-surgical wound Status: Deleted Current Visit: Yes Code(s): T14.8 - Other injury of unspecified body region Type of Wound Chief Complaint: Open ulcers right anterior first and second toe History of Wound: 82-year-old white female who came to us with open ulcers of th e right and second toe. This is been going on for at least a month. Patient has history of peripheral vascular disease and has been hospitalized approximately twice for cellulitis infections of the lower extremities. The edema in the left leg is completely gone coloring looks good no open sores. The right leg is very edematous to the knee with cellulitis apparent and erythematous darkened erythematous spots going up her leg. Patient ask malaise and fevered and chilled. Patient was seen in the emergency room yesterday and was placed on clindamycin orally to be taken 4 times a day. Daughter who takes care of her states they did do 2 IVs of antibiotics unknown. No cultures of blood or anything was obtained. Today we will obtain cultures of the ulcers and patient will be sent over to the emergency room for reevaluation and possible admission for her cellulitis fever sepsis. Progress of Wound: Patient is already on Xarelto. Her toes are superficial 0.1 on right great toe and right second toe. Healing well with the Aquacel silver cellulitis in her leg is better we are switching antibiotics though because of the cultures that we obtained last week. Both toes are basically covered with skin will follow up 1 more week to make sure there closed she is continued just dry dressings on top and follow-up in 1 week - Physical Exam Vital Signs Temp Pulse Resp BP 97.1 F L 72 16 138/88 H 03/30/18 10:45 03/30/18 10:45 03/30/18 10:45 03/30/18 10:45 General: Oriented x3, Cooperative, Well developed HEENT: Atraumatic, PERRLA Oral: Moist Mucosa Neck: Supple, No JVD Lungs: Clear to auscultation, Normal air movement Cardiovascular: Regular rate, Regular Rhythm Abdomen: Bowel Sounds Present, Soft, Non Tender, No Hepato-splenomegaly Extremities: No clubbing, Edema Wound Measurements and Assessment WC - Nurse 1 - General Ulcer Measurement Start: 03/16/18 10:30 Freq: Status: Active Protocol: Activity Type Activity Date Activity User E-Sign Co-Sign Detail Recorded Client Recorded Date Recorded By Document 03/30/18 10:45 [facility] [id number] 03/30/18 10:49 [facility] 03/30/18 10:45 Wound Center Nurse 1 [Ulcer Assessment] #15 right second toe -Combined with other wound No -Current Size (cm) - Length 1 -Current Size (cm) - Width 1.4 -Current Size (cm) - Depth 0.1 -Total Square Cm 1.4 -Photo Taken No -Epithelialization None Present -Tunneling No -Undermining/Tunneling No -Circular Undermining No -Exudate Amt None Present (0 %) -Wound Margin Distinct, Outline Attached -Granulation Amt None Present (0 %) -Slough/Fibrin Yes -Necrosis Amt Large (67-100%) -Necrotic Tissue Type Adherent Slough -Structure Exposed N/A -Texture (Alexandra-wound Skin Appearance) Scarring -Moisture (Alexandra-wound Skin Appearance Dry/Scaly ) -Color (Alexandra-wound Skin Appearance) Assessed -Temperature (Alexandra-wound Skin No Abnormality Appearance) (Pt Warm) -Tenderness on Palpation (Alexandra-wound No Skin Appearance) -Ulcer Cleansing Rinsed/ Irrigated with Saline -Foul Odor after Cleansing No -Anesthetic Used 4% Lidocaine Solution #14 right great toe -Combined with other wound No -Current Size (cm) - Length 1.1 -Current Size (cm) - Width 0.3 -Current Size (cm) - Depth 0.1 -Total Square Cm 0.33 -Photo Taken No -Epithelialization None Present -Tunneling No -Undermining/Tunneling No -Circular Undermining No -Exudate Amt None Present (0 %) -Wound Margin Distinct, Outline Attached -Granulation Amt None Present (0 %) -Slough/Fibrin Yes -Necrosis Amt Large (67-100%) -Necrotic Tissue Type Adherent Slough -Structure Exposed N/A -Texture (Alexandra-wound Skin Appearance) Scarring -Moisture (Alexandra-wound Skin Appearance Dry/Scaly ) -Color (Alexandra-wound Skin Appearance) Assessed -Temperature (Alexandra-wound Skin No Abnormality Appearance) (Pt Warm) -Tenderness on Palpation (Alexandra-wound No Skin Appearance) -Ulcer Cleansing Rinsed/ Irrigated with Saline -Foul Odor after Cleansing No -Anesthetic Used 4% Lidocaine Solution [Edema Assessment] -Lower Limb Edema Present Yes -Right Calf (cm) 46.5 -Right Ankle (cm) 27.2 WC - Nurse 2 - General Ulcer CM Notes Start: 03/16/18 10:30 Freq: Status: Active Protocol: Activity Type Activity Date Activity User E-Sign Co-Sign Detail Recorded Client Recorded Date Recorded By Document 03/30/18 11:18 MW [id number] 03/30/18 11:21 MW 03/30/18 11:18 Wound Center Nurse 2 [Procedure/Treatment] #15 right second toe -Time 11:18 -Correct Patient Yes -Correct Side, Site, Position Yes -Correct Procedure Yes -Procedure Performed Yes -Type of Procedure Debridement -Clinical Debridement Selective -Post Debridement Size (cm) - Length 0.1 -Post Debridement Size (cm) - Width 0.1 -Post Debridement Size (cm) - Depth 0.1 -Total Square Cm 0.01 -Wound/Ulcer Outcome Not Healed -Ulcer Cleansing Rinsed/ Irrigated with Saline -Foul Odor after Cleansing No -Bioengineered Tissue No -Bleeding Controlled with Pressure -Treatment Response Procedure Tolerated Well #14 right great toe -Time 11:18 -Correct Patient Yes -Correct Side, Site, Position Yes -Correct Procedure Yes -Procedure Performed Yes -Type of Procedure Debridement -Clinical Debridement Selective -Post Debridement Size (cm) - Length 0.1 -Post Debridement Size (cm) - Width 0.1 -Post Debridement Size (cm) - Depth 0.1 -Total Square Cm 0.01 -Wound/Ulcer Outcome Not Healed -Ulcer Cleansing Rinsed/ Irrigated with Saline -Foul Odor after Cleansing No -Bioengineered Tissue No -Bleeding Controlled with Pressure -Treatment Response Procedure Tolerated Well [See Physician Procedure note for Specifics] Pain Scale: 0-10 Numeric [Pain] -Is Patient Pain Free? Yes Musculoskeletal: No Tenderness to Palpation of Joints or Extremities Lymphatic: No Cervical, Supraclavicular, or Inguinal Adenopathy Neurological: Cranial nerves II-XII grossly intact, Neuro grossly intact Psych/Mental Status: Normal Affect, Appropriate Debridement Note Post-Debridement Measurements/Treatment WC - Nurse 2 - General Ulcer CM Notes Start: 03/16/18 10:30 Freq: Status: Active Protocol: Activity Type Activity Date Activity User E-Sign Co-Sign Detail Recorded Client Recorded Date Recorded By Document 03/16/18 10:47 MW [id number] 03/16/18 10:54 MW Document 03/23/18 10:58 MW [id number] 03/23/18 11:00 MW Document 03/30/18 11:18 MW [id number] 03/30/18 11:21 MW 03/16/18 03/23/18 03/30/18 10:47 10:58 11:18 Wound Center Nurse 2 #15 right second toe -Time 10:48 10:58 11:18 -Correct Patient Yes Yes Yes -Correct Side, Site, Position Yes Yes Yes -Correct Procedure Yes Yes Yes -Procedure Performed Yes Yes Yes -Type of Procedure Debridement Debridement Debridement -Clinical Debridement Subcutaneous Subcutaneous Selective -Post Debridement Size (cm) - Length 1.4 0.7 0.1 -Post Debridement Size (cm) - Width 1.5 0.8 0.1 -Post Debridement Size (cm) - Depth 0.1 0.1 0.1 -Total Square Cm 2.10 0.56 0.01 -Wound/Ulcer Outcome Not Healed Not Healed Not Healed -Ulcer Cleansing Rinsed/ Rinsed/ Rinsed/ Irrigated with Irrigated with Irrigated with Saline Saline Saline -Foul Odor after Cleansing No No No -Bioengineered Tissue No No No -Bleeding Controlled with Pressure Pressure Pressure -Treatment Response Procedure Procedure Procedure Tolerated Well Tolerated Well Tolerated Well #14 right great toe -Time 10:48 10:59 11:18 -Correct Patient Yes Yes Yes -Correct Side, Site, Position Yes Yes Yes -Correct Procedure Yes Yes Yes -Procedure Performed Yes Yes Yes -Type of Procedure Debridement Debridement Debridement -Clinical Debridement Subcutaneous Subcutaneous Selective -Post Debridement Size (cm) - Length 0.9 0.7 0.1 -Post Debridement Size (cm) - Width 0.6 0.4 0.1 -Post Debridement Size (cm) - Depth 0.1 0.1 0.1 -Total Square Cm 0.54 0.28 0.01 -Wound/Ulcer Outcome Not Healed Not Healed Not Healed -Ulcer Cleansing Rinsed/ Rinsed/ Rinsed/ Irrigated with Irrigated with Irrigated with Saline Saline Saline -Foul Odor after Cleansing No No No -Bioengineered Tissue No No No -Bleeding Controlled with Pressure Pressure Pressure -Treatment Response Procedure Procedure Procedure Tolerated Well Tolerated Well Tolerated Well Pain Scale: 0-10 Numeric Is Patient Pain Free? Yes Yes Yes No debridement was completed today Assessment/Plan Active Problems (Last Updated 02/09/18 @ 14:09 by Grant Regalado DO) Infected skin ulcer limited to breakdown of skin (Acute) Debility (Chronic) Assessment: Edema of the right leg. Open wounds right and second toe anterior l. Morbid obesity. Pacemaker. Peripheral vascular occlusive disease. Renal insufficiency Plan: Wash the legs with Hibiclens. Dry gauze dressings to both toes. Apply gauze between toes. Continue to compress with Hernandez wraps. Start metronidazole and ciprofloxacin discontinue other antibiotics. Follow-up one week
== END 2018-04-01 23:59 ==
LOC: WC 10:30
PROVIDERS: Family Provider Family Medicine; PCP Family Medicine; Visit Provider Nurse Practitioner
DX: I73.9 Peripheral vascular disease, unspecified (principal); R53.81 Other malaise; L03.115 Cellulitis of right lower limb; I82.532 Chronic embolism and thrombosis of left popliteal vein; E66.01 Morbid (severe) obesity due to excess calories; Z68.41 Body mass index [BMI] 40.0-44.9, adult; Z71.3 Dietary counseling and surveillance; Z95.0 Presence of cardiac pacemaker; L98.491 Non-pressure chronic ulcer of skin of other sites limited to breakdown of skin
CPT/HCPCS: 11042; 87070; 87075; 87077; 87186; 87205; 97597; 99213; G0463

== ENCOUNTER 2018-04-06 10:05 | Outpatient (RCR) | payer MEDICARE, MEDICAID, SELFPAY ==
[2018-04-02 01:03] VITALS: BP 138/88; PULSE 72; RESP 16; TEMP 36.2
[2018-04-06 10:40] VITALS: BP 141/75; PULSE 71; RESP 16; TEMP 36.9
--- NOTE | 2018-04-06 12:47 | PCM.WC.PN ---
(1) Cellulitis of right leg Status: Acute Current Visit: Yes Code(s): L03.115 - Cellulitis of right lower limb (2) Ulcer of right lower leg Status: Acute Current Visit: No Code(s): L97.919 - Non-pressure chronic ulcer of unspecified part of right lower leg with unspecified severity (3) Bilateral edema of lower extremity Status: Chronic Current Visit: Yes Code(s): R60.0 - Localized edema (4) Debility Status: Chronic Current Visit: Yes Code(s): R53.81 - Other malaise (5) Morbid obesity with BMI of 50.0-59.9, adult Status: Chronic Current Visit: Yes Code(s): E66.01 - Morbid (severe) obesity due to excess calories; Z68.43 - Body mass index (BMI) 50-59.9, adult (6) Peripheral vascular occlusive disease Status: Chronic Current Visit: Yes Code(s): I73.9 - Peripheral vascular disease, unspecified Type of Wound Chief Complaint: Open ulcers right anterior first and second toe History of Wound: 82-year-old white female who came to us with open ulcers of the right and second toe. This is been going on for at least a month. Patient has history of peripheral vascular disease and has been hospitalized approximately twice for cellulitis infections of the lower extremities. The edema in the left leg is completely gone coloring looks good no open sores. The right leg is very edematous to the knee with cellulitis apparent and erythematous darkened erythematous spots going up her leg. Patient ask malaise and fevered and chilled. Patient was seen in the emergency room yesterday and was placed on clindamycin orally to be taken 4 times a day. Daughter who takes care of her states they did do 2 IVs of antibiotics unknown. No cultures of blood or anything was obtained. Today we will obtain cultures of the ulcers and patient will be sent over to the emergency room for reevaluation and possible admission for her cellulitis fever sepsis. Progress of Wound: Patient is already on Xarelto. Toe areas are healed patient will be discharged from the wound center.She is to continue impression and elevation to her lower extremities. - Physical Exam Vital Signs Temp Pulse Resp BP 98.4 F 71 16 141/75 H 04/06/18 10:40 04/06/18 10:40 04/06/18 10:40 04/06/18 10:40 General: Oriented x3, Cooperative, Well developed HEENT: Atraumatic, PERRLA Oral: Moist Mucosa Neck: Supple, No JVD Lungs: Clear to auscultation, Normal air movement Cardiovascular: Regular rate, Regular Rhythm Abdomen: Bowel Sounds Present, Soft, Non Tender, No Hepato-splenomegaly Extremities: No clubbing, No edema, - - Right great toe right second toe Wound Measurements and Assessment WC - Nurse 1 - General Ulcer Measurement Start: 04/06/18 10:40 Freq: Status: Active Protocol: Activity Type Activity Date Activity User E-Sign Co-Sign Detail Recorded Client Recorded Date Recorded By Document 04/06/18 10:40 DL [id number] 04/06/18 10:49 DL 04/06/18 10:40 Wound Center Nurse 1 [Ulcer Assessment] #15 right second toe -Current Size (cm) - Length 0.5 -Current Size (cm) - Width 0.7 -Current Size (cm) - Depth 0.1 -Total Square Cm 0.35 -Photo Taken No -Exudate Amt None Present (0 %) -Wound Margin Distinct, Outline Attached -Granulation Amt None Present (0 %) -Necrosis Amt Large (67-100%) -Structure Exposed N/A -Texture (Alexandra-wound Skin Appearance) Localized Edema Scarring -Moisture (Alexandra-wound Skin Appearance Dry/Scaly ) -Color (Alexandra-wound Skin Appearance) Erythema Hemosiderin Staining -Temperature (Alexandra-wound Skin No Abnormality Appearance) (Pt Warm) -Ulcer Cleansing Rinsed/ Irrigated with Saline -Foul Odor after Cleansing No -Anesthetic Used 4% Lidocaine Solution #14 right great toe -Current Size (cm) - Length 0.2 -Current Size (cm) - Width 0.2 -Current Size (cm) - Depth 0.1 -Total Square Cm 0.04 -Photo Taken No -Exudate Amt Small (1-33%) -Exudate Type Serosanguineous -Wound Margin Indistinct, Non -Visible -Granulation Amt None Present (0 %) -Necrosis Amt Large (67-100%) -Necrotic Tissue Type Adherent Slough -Structure Exposed N/A -Texture (Alexandra-wound Skin Appearance) Localized Edema Scarring -Moisture (Alexandra-wound Skin Appearance Dry/Scaly ) -Color (Alexandra-wound Skin Appearance) Erythema Hemosiderin Staining -Temperature (Alexandra-wound Skin No Abnormality Appearance) (Pt Warm) -Ulcer Cleansing Rinsed/ Irrigated with Saline -Foul Odor after Cleansing No -Anesthetic Used 4% Lidocaine Solution [Edema Assessment] -Right Calf (cm) 44 -Right Ankle (cm) 26.5 WC - Nurse 2 - General Ulcer CM Notes Start: 04/06/18 10:40 Freq: Status: Active Protocol: Activity Type Activity Date Activity User E-Sign Co-Sign Detail Recorded Client Recorded Date Recorded By Document 04/06/18 11:17 MW [id number] 04/06/18 11:19 MW 04/06/18 11:17 Wound Center Nurse 2 [Procedure/Treatment] #15 right second toe -Time 11:17 -Correct Patient Yes -Correct Side, Site, Position Yes -Correct Procedure Yes -Procedure Performed Yes -Type of Procedure Debridement -Clinical Debridement Selective -Post Debridement Size (cm) - Length 0 -Post Debridement Size (cm) - Width 0 -Post Debridement Size (cm) - Depth 0 -Total Square Cm 0 -Wound/Ulcer Outcome Healed- Epithelialized -Ulcer Cleansing Rinsed/ Irrigated with Saline -Foul Odor after Cleansing No -Bioengineered Tissue No -Bleeding Controlled with NA -Treatment Response Procedure Tolerated Well #14 right great toe -Time 11:18 -Correct Patient Yes -Correct Side, Site, Position Yes -Correct Procedure Yes -Procedure Performed No -Post Debridement Size (cm) - Length 0 -Post Debridement Size (cm) - Width 0 -Post Debridement Size (cm) - Depth 0 -Total Square Cm 0 -Wound/Ulcer Outcome Healed- Epithelialized [See Physician Procedure note for Specifics] Musculoskeletal: No Tenderness to Palpation of Joints or Extremities Lymphatic: No Cervical, Supraclavicular, or Inguinal Adenopathy Neurological: Cranial nerves II-XII grossly intact, Neuro grossly intact Psych/Mental Status: Normal Affect, Appropriate Debridement Note Post-Debridement Measurements/Treatment - Nurse 2 - General Ulcer CM Notes Start: 04/06/18 10:40 Freq: Status: Active Protocol: Activity Type Activity Date Activity User E-Sign Co-Sign Detail Recorded Client Recorded Date Recorded By Document 04/06/18 11:17 MW [id number] 04/06/18 11:19 MW 10/05/18 11:17 Wound Center Nurse 2 #15 right second toe -Time 11:17 -Correct Patient Yes -Correct Side, Site, Position Yes -Correct Procedure Yes -Procedure Performed Yes -Type of Procedure Debridement -Clinical Debridement Selective -Post Debridement Size (cm) - Length 0 -Post Debridement Size (cm) - Width 0 -Post Debridement Size (cm) - Depth 0 -Total Square Cm 0 -Wound/Ulcer Outcome Healed- Epithelialized -Ulcer Cleansing Rinsed/ Irrigated with Saline -Foul Odor after Cleansing No -Bioengineered Tissue No -Bleeding Controlled with NA -Treatment Response Procedure Tolerated Well #14 right great toe -Time 11:18 -Correct Patient Yes -Correct Side, Site, Position Yes -Correct Procedure Yes -Procedure Performed No -Post Debridement Size (cm) - Length 0 -Post Debridement Size (cm) - Width 0 -Post Debridement Size (cm) - Depth 0 -Total Square Cm 0 -Wound/Ulcer Outcome Healed- Epithelialized No debridement was completed today Assessment/Plan Active Problems (Last Updated 02/09/18 @ 14:09 by Grant Regalado DO) Bilateral edema of lower extremity (Chronic) Morbid obesity with BMI of 50.0-59.9, adult (Chronic) Peripheral vascular occlusive disease (Chronic) Cellulitis of right leg (Acute) Debility (Chronic) Assessment: Edema of the right leg. Open wounds right and second toe anterior l. Morbid obesity. Pacemaker. Peripheral vascular occlusive disease. Renal insufficiency Plan: Patient is to discontinue wound care discharge from the wound center continue her double layer Tubigrip's and for extra swelling she is to go back to Hernandez wraps. Apply AmLactin to dry areas of the skin follow-up as needed
== END 2018-05-02 23:59 ==
LOC: WC 10:05
PROVIDERS: Family Provider Family Medicine; PCP Family Medicine; Referring Provider Nurse Practitioner; Visit Provider Nurse Practitioner
DX: Z09 Encounter for follow-up examination after completed treatment for conditions other than malignant neoplasm (principal); I73.9 Peripheral vascular disease, unspecified; R60.0 Localized edema; E66.01 Morbid (severe) obesity due to excess calories; Z68.43 Body mass index [BMI] 50.0-59.9, adult; Z71.3 Dietary counseling and surveillance
CPT/HCPCS: 97597